=== PATIENT | male | born 1950 | race Caucasian/White ===

== ENCOUNTER → 2017-01-12 | Outpatient (CLI) | payer OTHER, MEDICARE ==
[~2017-01-12] MED LIST: ASCO500T3 PO; ASPCH81X PO; ATOR-24 PO; CALC-393 PO; CARV25TA2 PO; EZET10TA63 PO; GLUC1CAP35 PO; LISI-787 PO; OMEGCAP2 PO
[2017-01-12 11:02] LABS: ALT/SGPT 26 U/L (12-78); AST/SGOT 16 U/L (15-37); BLOOD UREA NITROGEN 19 mg/dl (7-18); CALCIUM 8.6 mg/dl (8.5-10.1); CARBON DIOXIDE 23 mmol/L (21-32); CHLORIDE 108 mmol/L (98-107); CHOLESTEROL 104 mg/dl (0-200); CREATININE 0.98 mg/dl (0.60-1.40); GLUCOSE 101 mg/dl (70-99); POTASSIUM 4.1 mmol/L (3.5-5.1); SODIUM 140 mmol/L (136-145)
[2017-01-12 11:05] LABS: CHOLESTEROL/HDL RATIO 2.3; HDL CHOLESTEROL 46 mg/dl; TRIGLYCERIDES 82 mg/dl (0-150); VERY LOW DENSITY LIPOPROT CALC 16 mg/dl
== END | disposition home or self-care (01) ==
LOC: C.LABBC 08:08
PROVIDERS: ATTEND Family Medicine
DX: R73.01 Impaired fasting glucose (principal); E78.5 Hyperlipidemia, unspecified

== ENCOUNTER → 2017-04-20 | Day surgery (SDC) | payer OTHER, MEDICARE ==
[2017-04-07 13:26] VITALS: BMI 35.0
[~2017-04-20] VITALS: Ht 185.4 cm; Wt 122.7 kg
[~2017-04-20] MED LIST changes: +LIDOCAINE HCL 2% 2 ML VIAL (20MG/ML) ONE; +PROPOFOL IV EMULSION 10 MG/ML 20 ML VIAL IV ONE; +SODIUM CHLORIDE 0.9% 500ML 500 ML IV ONE
[2017-04-20 08:55] VITALS: Ht 185.4 cm; Wt 122.7 kg
[2017-04-20 09:11] VITALS: TEMP 36.6
--- NOTE | 2017-04-20 09:22 | Endo History and Physical ---
History & Physical Date of Service: April 20, 2017. Chief Complaint: SCREENING Referring Physician: GER STEVEN D.O. History of Present Illness 66 yo CM who presents for screening colonoscopy. Past Surgical History Hx Cardiac Surgery: Yes (HEART CATH X 2 (3 STENTS PLACED), CABG-2 VESSELS AND ANUERYSM REPAIR) Hx Internal Defibrillator: No Hx Pacemaker: No Hx Abdominal Surgery: No Hx of Implantable Prosthesis: No Hx Post-Op Nausea and Vomiting: No Hx Cancer Surgery: No Hx Thoracic Surgery: No Hx Orthopedic: No Hx Urinary Tract Surgery: No Family History None Social History Smoking Status: Former Smoker Hx Substance Use: No Hx Alcohol Use: Yes (OCCASIONALLY (3-4 DRINKS WEEKLY)) Allergies Coded Allergies: NO KNOWN DRUG ALLERGIES (Verified Allergy, Unknown, ., 04/20/17) Current Medications Reported Home Medications Medications Dose Route/Sig Max Daily Dose Days Date Category Glucosamine Chondroitin (Ldktlsmzcpm-Ilmnquppqrk-Dci C-) 1 Cap Cap 2 Cap PO QAM 04/07/17 Reported Fish Oil (Stem-3 Fatty Acids) 1 Cap Cap 1 Cap PO QAM 04/07/17 Reported Calcium (Calcium Carbonate) 600 Mg Tab 1 Tab PO QAM 04/07/17 Reported Vitamin C (Ascorbic Acid) 500 Mg Tab 1 Tab PO QAM 04/07/17 Reported Aspirin Chewable (Aspirin) 81 Mg Chew 81 Mg PO QAM 04/07/17 Reported Coreg (Carvedilol) 25 Mg Tab 25 Mg PO BID 04/07/17 Reported Lipitor (Atorvastatin Calcium) 40 Mg Tab 40 Mg PO QPM 04/07/17 Reported Zestoretic 20MG/12.5MG (HCTZ/Lisinopril) Tab 1 Tab PO QAM 04/07/17 Reported Zetia (Ezetimibe) 10 Mg Tab 10 Mg PO QAM 04/07/17 Reported Vital Signs Weight (Kilograms): 122.73 Height (Feet): 6 Height (Inches): 1 Date Time Temp Pulse Resp B/P Pulse Ox O2 Delivery O2 Flow Rate FiO2 04/20/17 09:11 36.6 65 20 140/76 97 Room Air Physical Exam General Appearance: WD/WN, no apparent distress Respiratory/Chest: Auscultation: breath sounds normal Cardiovascular: Heart Auscultation: RRR Abdomen: Bowel Sounds: normal Inspection & Palpation: soft, non-distended, no tenderness, guarding & rebound Assessment and Plan Assessment: 66 yo CM who presents for screening colonoscopy. Plan: Proceed with colonoscopy.
--- NOTE | 2017-04-20 10:22 | GI REPORT ---
Procedure Date: 04/20/2017 9:28 AM Procedure: Colonoscopy Indications: Screening for colorectal malignant neoplasm Medicines: Monitored Anesthesia Care Complications: No immediate complications. Estimated Blood Loss: Estimated blood loss: none. Procedure: Pre-Anesthesia Assessment: - Prior to the procedure, a History and Physical was performed, and patient medications and allergies were reviewed. The patient's tolerance of previous anesthesia was also reviewed. The risks and benefits of the procedure and the sedation options and risks were discussed with the patient. All questions were answered, and informed consent was obtained. Prior Anticoagulants: The patient has taken aspirin, last dose was day of procedure. ASA Grade Assessment: III - A patient with severe systemic disease. After reviewing the risks and benefits, the patient was deemed in satisfactory condition to undergo the procedure. After I obtained informed consent, the scope was passed under direct vision. Throughout the procedure, the patient's blood pressure, pulse, and oxygen saturations were monitored continuously. The scope was introduced through the anus and advanced to the cecum, identified by appendiceal orifice and ileocecal valve. The colonoscopy was performed without difficulty. The patient tolerated the procedure well. The quality of the bowel preparation was good. The terminal ileum, ileocecal valve, appendiceal orifice, and rectum were photographed. Findings: Multiple small-mouthed diverticula were found in the sigmoid colon. Non-bleeding internal hemorrhoids were found during retroflexion. The hemorrhoids were small. Impression: - Diverticulosis in the sigmoid colon. - Non-bleeding internal hemorrhoids. - No specimens collected. Recommendation: - Resume previous diet. - Continue present medications. - Repeat colonoscopy in 10 years for surveillance. - Return to primary care physician as previously scheduled. Maximino Davis, DO 04/20/2017 10:22:39 AM This report has been signed electronically. Note Initiated On: 04/20/2017 9:28 AM I attest to the content of the Intraoperative Record and orders documented therein, exceptions below
--- NOTE | 2017-04-20 10:26 | Discharge Instructions ---
Endoscopy Patient Instructions Date / Procedure(s) Performed April 20, 2017. Colonoscopy Allergy Information Coded Allergies: NO KNOWN DRUG ALLERGIES (Verified Allergy, Unknown, ., 04/20/17) Discharge Date / Findings April 20, 2017. Diverticulosis Internal hemorrhoids Medication Instructions Stopped Medication(s): LISINOPRIL OK to resume all medications today as prescribed Reported Home Medications Medications Dose Route/Sig Max Daily Dose Days Date Category Glucosamine Chondroitin (Pnvhorqthdv-Whazkwmqndz-Szp C-) 1 Cap Cap 2 Cap PO QAM 04/07/17 Reported Fish Oil (Basehor-3 Fatty Acids) 1 Cap Cap 1 Cap PO QAM 04/07/17 Reported Calcium (Calcium Carbonate) 600 Mg Tab 1 Tab PO QAM 04/07/17 Reported Vitamin C (Ascorbic Acid) 500 Mg Tab 1 Tab PO QAM 04/07/17 Reported Aspirin Chewable (Aspirin) 81 Mg Chew 81 Mg PO QAM 04/07/17 Reported Coreg (Carvedilol) 25 Mg Tab 25 Mg PO BID 04/07/17 Reported Lipitor (Atorvastatin Calcium) 40 Mg Tab 40 Mg PO QPM 04/07/17 Reported Zestoretic 20MG/12.5MG (HCTZ/Lisinopril) Tab 1 Tab PO QAM 04/07/17 Reported Zetia (Ezetimibe) 10 Mg Tab 10 Mg PO QAM 04/07/17 Reported Provider Instructions Activity Restrictions - No exercising or heavy lifting for 24 hours. - Do not drink alcohol the day of the procedure. - Do not drive a car or operate machinery until the day after the procedure. - Do not make any important decisions or sign important papers in 24 hours after the procedure. Following Day: - Return to full activity which may include returning to work/school. Diet Start your diet with liquids and light foods (jello, soup, juice, toast). Then eat your usual diet if not nauseated. Treatment For Common After Affects For mild abdominal pain, bloating, or excessive gas: - Rest - Eat lightly - Lie on right side Follow-Up Information Follow-up with GER STEVEN D.O. as scheduled Anesthesia Information What You Should Know You have had a procedure that required some medicine to reduce anxiety and discomfort. This treatment is called moderate sedation. After receiving the treatment, you may be sleepy, but you will be able to breathe on your own. The effects of the treatment may last for several hours. Follow these instructions along with Activity/Diet recommendations noted above: * Do NOT do anything where dizziness or clumsiness would be dangerous. * Rest quietly at home today, then you can be up and about tomorrow. * Have a responsible person stay with you the rest of today. * You may have had an I.V. today. If so, you may take the dressing off later today. Recommendations Call your doctor if: * Trouble breathing * Continuous vomiting for more than 24 hours * Temperature above 101 degrees * Severe abdominal pain or bloating * Pain not relieved by pain medicine ordered * There is increased drainage or redness from any incision * A large amount of rectal bleeding greater than 2-3 tablespoons. (If you had a polyp/s removed or have hemorrhoids, a small amount of blood - from the rectum is to be expected.) * You have any unanswered questions or concerns. IN THE EVENT OF A SERIOUS EMERGENCY, GO TO THE NEAREST EMERGENCY ROOM Your discharge instructions were prepared by provider Maximino Davis. Patient Instructions Signature Page Tomer Finley Patient (or Guardian) Signature/Date: I have read and understand the instructions given to me by my caregivers. Caregiver/RN/Doctor Signature/Date: The above-named patient and/or guardian has received patient instructions on this date. + Original Patient Signature Page (only) stays with chart. Please make copy for patient.
[2017-04-20 10:31] VITALS: BP 135/70; PULSE 56; O2SAT 95
--- NOTE | 2017-04-20 10:49 | Anesthesiology Progress Note ---
Anesthesia Post Op Note Date & Time April 20, 2017 at 10:48 Vital Signs Pain Intensity: 0 Vital Signs Past 12 Hours Date Time Temp Pulse Resp B/P Pulse Ox O2 Delivery O2 Flow Rate FiO2 04/20/17 10:31 56 16 135/70 95 Room Air 04/20/17 10:16 53 16 118/81 96 Room Air 04/20/17 10:01 72 16 118/79 96 Room Air 04/20/17 09:11 36.6 65 20 140/76 97 Room Air Notes Mental Status: alert / awake / arousable, participated in evaluation Pt Amnestic to Procedure: Yes Nausea / Vomiting: adequately controlled Pain: adequately controlled Airway Patency, RR, SpO2: stable & adequate BP & HR: stable & adequate Hydration State: stable & adequate Anesthetic Complications: no major complications apparent
== END | disposition home or self-care (01) ==
LOC: C.GI 08:26
PROVIDERS: ATTEND Internal Medicine
DX: Z12.11 Encounter for screening for malignant neoplasm of colon (principal); K64.8 Other hemorrhoids; K57.30 Diverticulosis of large intestine without perforation or abscess without bleeding; Z95.1 Presence of aortocoronary bypass graft; Z87.891 Personal history of nicotine dependence

== ENCOUNTER → 2017-07-20 | Outpatient (CLI) | payer OTHER, MEDICARE ==
[~2017-07-20] MED LIST changes: -LIDOCAINE HCL 2% 2 ML VIAL (20MG/ML) ONE; -PROPOFOL IV EMULSION 10 MG/ML 20 ML VIAL IV ONE; -SODIUM CHLORIDE 0.9% 500ML 500 ML IV ONE
[2017-07-20 11:13] LABS: BASO % 0.5 %; BASO ABS # 0.04 K/uL (0-0.2); COMPLETE YES; EOS % 2.5 %; HEMATOCRIT 46.5 % (42-52); IG% 0.1 %; LYMPH % 28.2 %; LYMPH ABS # 2.17 K/uL (1.2-3.4); MEAN CELL VOLUME 90.8 fL (80-100); MEAN CORPUSCULAR HEMOGLOBIN 29.3 pg (25-34); MEAN CORPUSCULAR HGB CONC 32.3 g/dl (32-36); MEAN PLATELET VOLUME 10.3 fL (7.4-10.4); MONO % 11.4 %; NEUT % 57.3 %; PLATELET COUNT 194 K/uL (130-400); RED BLOOD COUNT 5.12 M/uL (4.7-6.1); WHITE BLOOD COUNT 7.69 K/uL (4.8-10.8)
[2017-07-20 11:37] LABS: ALT/SGPT 31 U/L (12-78); AST/SGOT 18 U/L (15-37); BLOOD UREA NITROGEN 20 mg/dl (7-18); BUN/CREATININE RATIO 22.7 (10-20); CALCIUM 8.3 mg/dl (8.5-10.1); CARBON DIOXIDE 23 mmol/L (21-32); CHLORIDE 109 mmol/L (98-107); CREATININE 0.87 mg/dl (0.60-1.40); GLUCOSE 113 mg/dl (70-99); POTASSIUM 3.9 mmol/L (3.5-5.1); SODIUM 138 mmol/L (136-145)
[2017-07-20 11:43] LABS: CHOLESTEROL 106 mg/dl (0-200); CHOLESTEROL/HDL RATIO 2.3; HDL CHOLESTEROL 46 mg/dl; TRIGLYCERIDES 71 mg/dl (0-150); VERY LOW DENSITY LIPOPROT CALC 14 mg/dl
[2017-07-20 12:14] LABS: ESTIMATED AVERAGE GLUCOSE 120 mg/dl; HA1C FLAG Normal (Normal)
== END | disposition home or self-care (01) ==
LOC: C.LABBC 08:15
PROVIDERS: ATTEND Family Medicine
DX: I10 Essential (primary) hypertension (principal); I25.810 Atherosclerosis of coronary artery bypass graft(s) without angina pectoris; R73.01 Impaired fasting glucose; Z12.5 Encounter for screening for malignant neoplasm of prostate

== ENCOUNTER → 2018-01-23 | Outpatient (CLI) | payer OTHER, MEDICARE ==
[2018-01-23 10:38] LABS: BASO % 0.4 %; BASO ABS # 0.03 K/uL (0-0.2); EOS % 2.4 %; EOS ABS # 0.18 K/uL (0-0.5); HEMATOCRIT 45.9 % (42-52); HEMOGLOBIN 15.1 g/dL (14.0-18.0); IG# 0.01 K/uL (0.00-0.02); LYMPH % 29.9 %; LYMPH ABS # 2.22 K/uL (1.2-3.4); MEAN CELL VOLUME 90.4 fL (80-100); MEAN CORPUSCULAR HEMOGLOBIN 29.7 pg (25-34); MEAN CORPUSCULAR HGB CONC 32.9 g/dl (32-36); MEAN PLATELET VOLUME 10.3 fL (7.4-10.4); MONO % 11.3 %; MONO ABS # 0.84 K/uL (0.11-0.59); NEUT % 55.9 %; NEUT ABS # 4.14 K/uL (1.4-6.5); PLATELET COUNT 195 K/uL (130-400); RED CELL DISTRIBUTION WIDTH CV 13.7 % (11.5-14.5); RED CELL DISTRIBUTION WIDTH SD 45.7 fL (36.4-46.3); WHITE BLOOD COUNT 7.42 K/uL (4.8-10.8)
[2018-01-23 10:43] LABS: ALT/SGPT 33 U/L (12-78); AST/SGOT 16 U/L (15-37); BLOOD UREA NITROGEN 18 mg/dl (7-18); CALCIUM 8.8 mg/dl (8.5-10.1); CARBON DIOXIDE 26 mmol/L (21-32); CHOLESTEROL 102 mg/dl (0-200); CREATININE 0.93 mg/dl (0.60-1.40); GLUCOSE 102 mg/dl (70-99); POTASSIUM 3.8 mmol/L (3.5-5.1); SODIUM 139 mmol/L (136-145)
[2018-01-23 10:45] LABS: LDL CHOLESTEROL (DIRECT) 55 mg/dl
[2018-01-23 12:13] LABS: HEMOGLOBIN A1C 5.7 % (4.5-5.6)
== END | disposition home or self-care (01) ==
LOC: C.LABBC 07:45
PROVIDERS: ATTEND Family Medicine
DX: I10 Essential (primary) hypertension (principal); I25.810 Atherosclerosis of coronary artery bypass graft(s) without angina pectoris; E78.5 Hyperlipidemia, unspecified; R73.01 Impaired fasting glucose

== ENCOUNTER 2023-06-25 10:20 | Inpatient (IN) ==
[2023-06-25] MEDS ORDERED: SODIUM CHLORIDE 0.9% 1000ML 1,000 ML IV STA (11:11)
--- NOTE | 2023-06-25 11:35 | Emergency Department Note ---
Impression & Plan Painless rectal bleeding ADMIT ED Provider Note HPI: The patient is a 72-year-old gentleman with history of atrial flutter, currently anticoagulated on Eliquis, history of recent cardiac arrest status post prolonged ICU stay in [facility], status post AICD placement, status post multiple clips for lower GI bleed while inpatient at the hospital in [facility] per patient, presents the emergency department with chief complaint of rectal bleeding for the past 2 days. Patient's at the bedside states that he has been taking his Eliquis as prescribed and he did receive his morning dose of Eliquis. Patient is status post PEG tube placement during his admission earlier this month in [place] as well as he was having dysphagia after prolonged intubation. On arrival here to the ED the patient is hemodynamically stable, he is alert, denies any current abdominal pain, denies any chest pain or shortness of breath. Patient states that his rectal bleeding has worsened over the past 2 days. He states initially his bowel movements were dark and then they became somewhat purple/red-colored. He states that they are larger volume now than they had been previously. ROS: - Per HPI Differential Diagnosis: Lower gastrointestinal hemorrhage, peptic ulcer disease, diverticulitis flare, upper gastrointestinal hemorrhage with melena, external hemorrhoids, acute colitis, amongst other potential pathologies. *Outpatient medications and allergy history reviewed. *Pertinent external medical records reviewed. PE: General: Alert HEENT: Normocephalic, trachea midline Eyes: Extraocular eye movement is intact, no scleral erythema Pulmonary: Clear to auscultation bilaterally, no wheezing Cardio: Regular rate and rhythm GI: Abdomen is soft to palpation, G-tube is in place without surrounding erythema or drainage, rectal examination reveals gross blood on digital rectal exam, no evidence of any external hemorrhoids : No suprapubic tenderness MSK: No evidence of trauma or malformation of the extremities, no edema Skin: No evidence of rash Neuro: Alert, no focal deficits Psychiatric: Cooperative science technician: (As interpreted by myself): - An order was placed for continuous cardiac monitoring - Patient was noted to be in paced rhythm with a rate of 60 EKG: (As interpreted by myself): Rate: 60 Rhythm: Atrial paced rhythm Intervals: ND interval 234 ms, QRS and QTc within normal limits ST changes: No ST elevation Time: 1107 Interventions provided in ED: -Kcentra, Protonix bolus and drip Medical Decision Making: Shortly after the patient arrived IV was established and lab work obtained, 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 On arrival here to the ED the patient is hemodynamically stable, he is alert, he is otherwise in no acute distress on my initial assessment. Lab work obtained shows no leukocytosis, there is anemia with a hemoglobin of 9.7, unclear baseline patient's recent dis charge at the [facility]. CMP does not show any critical abnormalities, BUN is slightly elevated at 24, sodium is within normal limits, potassium is within normal limits, there is no evidence of acute kidney injury. Troponin was obtained and is negative. Patient denies any chest pain, EKG shows paced rhythm per my interpretation, low suspicion for ACS. Urinalysis does not show any evidence of infection. Given the patient's recent colonoscopy reported during his ICU stay that required intervention for hemorrhage, I did obtain CT imaging of the abdomen pelvis. CT imaging shows no evidence of any bowel perforation or free air, there is mention of some abnormality and thickened wall of the gallbladder with cholelithiasis. Patient does not have any right upper quadrant tenderness on my exam, he denies any recent nausea or vomiting. He does not have a transaminitis and bilirubin is normal. I have low suspicion for acute cholecystitis. Ultrasound imaging was ordered for follow-up that does not show any clear evidence of cholecystitis. I did discuss the case with on-call general surgery, Dr. Sanchez, at this time low suspicion exist for acute cholecystitis and will plan for admission with general surgery consult on a routine basis. In regards to the patient's lower GI bleed, his hemoglobin is slightly reduced at 9.7, he did take his Eliquis this morning, I discussed the possibility of administering Kcentra to the patient with the on-call anticoagulation spec ialist, Dr. Fontenot, who did order Kcentra for the patient given his gross blood on rectal exam, recent administration of Eliquis, and concern for clinical decompensation should his LGI bleed worsen over the next several hours. I did discuss case with on-call gastroenterology, Dr. Santos, who was in agreement for Kcentra administration of Protonix. Gastroenterology will follow and plan for likely colonoscopy tomorrow morning unless the patient's clinical status changes and colonoscopy could then be arranged on a more emergent basis. I discussed all the above findings with the patient and his at the bedside, at this time they are in agreement for admission. Case was discussed with the on-call admitting hospitalist for [facility], Dr. Bee, and the patient was placed for admission in stable condition for further management. Consultants: -Gastroenterology, Dr. Santos -General surgery, Dr. Sanchez -Hospitalist, Dr. Bee -Anticoagulation specialist, Dr. Fontenot Disposition discussion held by myself with: Patient and at the bedside * CRITICAL CARE TIME: ( 55 ) minutes -Management and stabilization of patient with complex past medical history currently on anticoagulation with acute lower gastrointestinal hemorrhage requiring administration of Kcentra, time spent at the bedside, interpretation of EKG and diagnostic studies, discussion with multiple subspecialty physicians including gastroenterology, general surgery, anticoagulation specialist, and hospitalist service for arrangement of admission. Diagnosis: 1. Lower gastrointestinal hemorrhage, acute, on anticoagulation 2. Anemia, acute 3. Elevated BUN, acute Disposition: Admission Hardeep Back DO Emergency Medicine Past Med/Surg History Medical History (Updated 06/25/23 @ 16:06 by Hardeep Back DO) Anxiety Arthritis BPH with elevated PSA Depression Elevated PSA Heart attack Hypercholesteremia Hypertension Surgical History H/O heart artery stent x 3 History of tonsillectomy No pertinent past surgical history S/P CABG x 2 Family History Father , 72yo Heart disease Rheumatic fever Mother , 74yo Heart disease Hypertension Anxiety Stroke Sister Breast cancer Multiple sclerosis Brother Myocardial infarction Brother Heart disease Hx of CABG Prostate cancer Brother Heart disease H/O heart artery stent Daughter No problems noted. Daughter No problems noted. 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 Verified 12/31/21 14:17 Home Meds Home Medications Medication Instructions Recorded Confirmed ascorbic acid (vitamin C) 500 mg 500 mg PO DAILY 05/07/20 01/04/23 capsule aspirin 81 mg tablet,delayed 81 mg PO DAILY 05/07/20 06/25/23 release (Adult Low Dose Aspirin) calcium carbonate 600 mg calcium 600 mg PO DAILY 05/07/20 01/04/23 (1,500 mg) tablet carvedilol 25 mg tablet 25 mg PO BID 05/07/20 01/04/23 ezetimibe 10 mg tablet 10 mg PO DAILY 05/07/20 06/25/23 lisinopril 20 1 tab PO DAILY 05/07/20 01/04/23 mg-hydrochlorothiazide 12.5 mg tablet multivitamin 1 tab PO DAILY 05/07/20 06/25/23 omega-3 fatty acids 1,000 mg 1,000 mg PO DAILY 05/07/20 01/04/23 capsule vit 2 tab PO DAILY 05/07/20 06/25/23 [id number] 500 mg-50 mg-25 mg-40 mg tablet (Bioflex) cholecalciferol (vitamin D3) 50 50 mcg PO DAILY 12/31/20 01/04/23 mcg (2,000 unit) capsule acetaminophen 500 mg tablet 500 mg PO Q6H PRN Pain 01/04/23 06/25/23 (Tylenol Extra Strength) amiodarone 200 mg tablet 200 mg PO DAILY 06/25/23 06/25/23 apixaban 5 mg tablet (Eliquis) 5 mg PO BID 06/25/23 06/25/23 atorvastatin 80 mg tablet 80 mg PO HS 06/25/23 06/25/23 calcium carbonate 400 mg calcium 400 mg PO DAILY 06/25/23 06/25/23 (1,000 mg) chewable tablet calcium carbonate 500 mg calcium 500 mg PO DAILY 06/25/23 06/25/23 (1,250 mg) chewable tablet docusate sodium 100 mg capsule 100 mg PO BID 06/25/23 06/25/23 (Colace) metoprolol tartrate 50 mg tablet 50 mg PO QID 06/25/23 06/25/23 sennosides 8.6 mg capsule (senna) 8.6 mg PO BID PRN Constipation 06/25/2305/29 sertraline 50 mg tablet 50 mg PO DAILY 06/25/23 06/25/23 sodium bicarbonate 325 mg tablet 325 mg PO DAILY 06/25/23 06/25/23 spironolactone 25 mg tablet 25 mg PO DAILY 06/25/23 06/25/23 torsemide 20 mg tablet 20 mg PO DAILY 06/25/23 06/25/23 Results & Data (ED) Vital Signs Vital Signs - 24 hr 06/25/23 10:49 06/25/23 11:23 06/25/23 11:25 Temperature 36.7 C Temperature Source Skin Pulse Rate 60 60 Pulse Rate [Bilateral] 60 Pulse Rhythm [Bilateral] Regular Respiratory Rate 20 16 18 Respiratory Effort / Characteristics Non-Labored Spontaneous Respiratory Depth Normal Normal Respiratory Pattern Regular Blood Pressure 109/70 Blood Pressure [Left Arm] 112/68 Blood Pressure Mean 83 Blood Pressure Mean [Left Arm] 82 Pulse Oximetry 100 99 98 Oxygen Delivery Method Room Air Room Air Room Air Sepsis Recent Fever Within 48 Hours No Sepsis New/Unexplained Change in Mental Status N/A Sepsis Action Taken by Nursing No Action Required 06/25/23 11:27 06/25/23 15:00 Temperature Temperature Source Pulse Rate 60 Pulse Rate [Bilateral] 60 Pulse Rhythm [Bilateral] Respiratory Rate 22 Respiratory Effort / Characteristics Respiratory Depth Respiratory Pattern Blood Pressure Blood Pressure [Left Arm] 124/68 Blood Pressure Mean Blood Pressure Mean [Left Arm] 86 Pulse Oximetry 100 Oxygen Delivery Method Room Air Sepsis Recent Fever Within 48 Hours Sepsis New/Unexplained Change in Mental Status Sepsis Action Taken by Nursing Laboratory Data 06/25/23 11:30 06/25/23 11:30 Lab Results 06/25/23 06/25/23 06/25/23 Range/Units 11:15 11:15 11:30 WBC 8.78 (4.8-10.8) K/ul RBC 3.07 L (4.70-6.10) M/uL Hgb 9.7 L (14.0-18.0) g/dl Hct 30.4 L (42.0-52.0) % MCV 99.0 (80.0-100.0) fL MCH 31.6 (25.0-34.0) pg MCHC 31.9 L (32.0-36.0) g/dL RDW Std Deviation 64.7 H (36.4-46.3) fL RDW Coeff of [place] 18.1 H (11.5-14.5) % Plt Count 283 (130-400) K/uL MPV 9.2 L (9.4-12.4) fL Immature Gran % (Auto) 1.0 % Neut % (Auto) 69.6 % Lymph % (Auto) 18.1 % [place] % (Auto) 9.3 % Eos % (Auto) 1.3 % Baso % (Auto) 0.7 % Neut # (Auto) 6.11 (1.40-6.50) K/uL Lymph # (Auto) 1.59 (1.2-3.4) K/uL [place] # (Auto) 0.82 H (0.11-0.59) K/uL Eos # (Auto) 0.11 (0-0.50) K/uL Baso # (Auto) 0.06 (0-0.2) K/uL Immature Gran # (Auto) 0.09 (0.01-0.20) K/uL PT (9.0-12.0) Seconds INR (0.9-1.1) Sodium (136-145) mmol/L Potassium (3.5-5.1) mmol/L Chloride (98-107) mmol/L Carbon Dioxide (21-32) mmol/L Anion Gap (3-11) BUN (6-23) mg/dl Creatinine (0.6-1.4) mg/dl Est Cr Clr Drug Dosing ml/min Est GFR ( Amer) ml/min Est GFR (Non-Af Amer) ml/min BUN/Creatinine Ratio (10-20) Glucose (70-99(Fasting)) mg/dl Calcium (8.6-10.3) mg/dl Total Bilirubin (0.2-1.0) mg/dl AST (13-39) U/L ALT (7-52) U/L Alkaline Phosphatase (34-104) U/L Troponin I High Sens (0-20) pg/ml Total Protein (6.0-8.3) gm/dl Albumin (3.4-5.0) gm/dl Globulin (2.5-4.0) gm/dl Albumin/Globulin Ratio (0.9-2) Lipase (11-82) U/L Urine Color Urine Appearance (Clear) Urine pH (4.5-7.5) Ur Specific [place] (1.000-1.030) Urine Protein (Negative) Urine Glucose (UA) (Negative) Urine Ketones (Negative) Urine Blood (Negative) Urine Nitrite (Negative) Urine Bilirubin (Negative) Urine Urobilinogen (Negative) Ur Leukocyte Esterase (Negative) Blood Type Cancelled O Positive Antibody Screen Cancelled NEGATIVE 06/25/23 06/25/23 06/25/23 Range/Units 11:30 11:30 13:45 WBC (4.8-10.8) K/ul RBC (4.70-6.10) M/uL Hgb (14.0-18.0) g/dl Hct (42.0-52.0) % MCV (80.0-100.0) fL MCH (25.0-34.0) pg MCHC (32.0-36.0) g/dL RDW Std Deviation (36.4-46.3) fL RDW Coeff of [place] (11.5-14.5) % Plt Count (130-400) K/uL MPV (9.4-12.4) fL Immature Gran % (Auto) % Neut % (Auto) % Lymph % (Auto) % [place] % (Auto) % Eos % (Auto) % Baso % (Auto) % Neut # (Auto) (1.40-6.50) K/uL Lymph # (Auto) (1.2-3.4) K/uL [place] # (Auto) (0.11-0.59) K/uL Eos # (Auto) (0-0.50) K/uL Baso # (Auto) (0-0.2) K/uL Immature Gran # (Auto) (0.01-0.20) K/uL PT 12.3 H (9.0-12.0) Seconds INR 1.1 (0.9-1.1) Sodium 138 (136-145) mmol/L Potassium 4.2 (3.5-5.1) mmol/L Chloride 102 (98-107) mmol/L Carbon Dioxide 27 (21-32) mmol/L Anion Gap 9 (3-11) BUN 24 H (6-23) mg/dl Creatinine 1.10 (0.6-1.4) mg/dl Est Cr Clr Drug Dosing 77.6 ml/min Est GFR ( Amer) 77.3 ml/min Est GFR (Non-Af Amer) 66.7 ml/min BUN/Creatinine Ratio 21.8 H (10-20) Glucose 115 H (70-99(Fasting)) mg/dl Calcium 9.5 (8.6-10.3) mg/dl Total Bilirubin 0.6 (0.2-1.0) mg/dl AST 22 (13-39) U/L ALT 29 (7-52) U/L Alkaline Phosphatase 111 H (34-104) U/L Troponin I High Sens 15.5 (0-20) pg/ml Total Protein 7.5 (6.0-8.3) gm/dl Albumin 3.7 (3.4-5.0) gm/dl Globulin 3.8 (2.5-4.0) gm/dl Albumin/Globulin Ratio 1.0 (0.9-2) Lipase 32 (11-82) U/L Urine Color Yellow Urine Appearance Clear (Clear) Urine pH 7.5 (4.5-7.5) Ur Specific [place] 1.016 (1.000-1.030) Urine Protein Negative (Negative) Urine Glucose (UA) Negative (Negative) Urine Ketones Negative (Negative) Urine Blood Negative (Negative) Urine Nitrite Negative (Negative) Urine Bilirubin Negative (Negative) Urine Urobilinogen Negative (Negative) Ur Leukocyte Esterase Negative (Negative) Blood Type Antibody Screen Administered Medications Pantoprazole Sodium 40 mg/ (Dextrose) 100 mls @ 20 mls/hr IV Q5H DESTINY Stop: 07/25/23 12:29 Last Admin: 06/25/23 13:08 Dose: 8 mg/hr, 20 mls/hr Documented By: RUSSELL Discontinued Medications Sodium Chloride (Nss 1000ml) 1,000 mls @ 999 mls/hr IV .Q1H1M STA Stop: 06/25/23 12:11 Last Infusion: 06/25/23 15:15 Dose: 0 mls/hr Documented By: Admin: 06/25/23 11:38 Dose: 999 mls/hr Documented By: RUSSELL Pantoprazole Sodium (Protonix Bolus/Drip) 0 mls @ 1 mls/hr IV ONE STA Stop: 06/25/23 12:13 Last Admin: 06/25/23 14:46 Dose: Not Given Documented By: RUSSELL Pantoprazole Sodium 80 mg/ (Dextrose) 120 mls @ 400 mls/hr IV NOW ONE Stop: 06/25/23 12:29 Last Infusion: 06/25/23 15:15 Dose: 0 mls/hr Documented By: Admin: 06/25/23 13:07 Dose: 400 mls/hr Documented By: RUSSELL Prothrombin Complex Concent ( (Human) 2,000 units/ Syringe) 80 mls @ 10 mls/min IV NOW ONE; Protocol Stop: 06/25/23 12:42 Last Admin: 06/25/23 13:08 Dose: 10 mls/min Documented By: RUSSELL Ioversol (Optiray 320 100ml) 92 ml IV ONCE ONE Stop: 06/25/23 12:27 Last Admin: 06/25/23 12:26 Dose: 92 ml Documented By: EDK Imaging Data Radiologist's Impression: Abdomen/Pelvis CT 06/25/23 11:33 CT SCAN OF THE ABDOMEN AND PELVIS WITH IV CONTRAST CLINICAL HISTORY: Hematochezia. COMPARISON STUDY: Abdominal CT dated 05/06/2020. TECHNIQUE: Following the IV administration of 92 cc of Optiray 320, CT scan of the abdomen and pelvis is performed from the lung bases to the proximal femora. Images are reviewed in the axial, sagittal, and coronal planes. IV contrast was administered without complication. A dose lowering technique was utilized adhering to the principles of ALARA. The examination is degraded by streak artifact from the left arm which could not be elevated above the abdomen. CT DOSE: 1982.02 mGy.cm FINDINGS: Lung bases: The patient is status post midline sternotomy. The heart is enlarged and without pericardial effusion. Pacemaker leads are in place. Calcification of the apical myocardium suggests previous ischemia. There is likely intraventricular thrombus at the apex seen on axial image #55. There is elevation of the right hemidiaphragm with bibasilar scarring/atelectasis. No airspace consolidation or pleural effusion is identified. A 5 mm pulmonary nodule is seen at the left lung base on image #68. Liver: The contrast-enhanced liver is normal in size, contour, and attenuation. There is no intrahepatic biliary ductal dilatation. The hepatic veins and portal veins are patent. Gallbladder: There are layering calcified gallstones. The gallbladder is distended and there is pericholecystic infiltration. Spleen: Normal in size and attenuation. Pancreas: Unremarkable. Adrenal glands: Unremarkable. Kidneys: The contrast enhanced kidneys are normal in size and without hydronephrosis. The kidneys enhance symmetrically. A 2.4 cm cyst is seen in the left lower pole. Additional subcentimeter cortical hypodensities also likely represent cysts but are too small for definitive characterization. Abdominal vasculature: There is advanced atherosclerotic calcification and mild ectasia of the abdominal aorta. Bowel: A percutaneous gastrostomy tube is in place. The lumbar may be located outside of the stomach within the abdominal wall. The abdominal wall soft tissues are thickened at this site. There is moderate colonic diverticulosis without CT evidence of acute diverticulitis. No bowel obstruction is seen. Moderate fecal retention is noted throughout the colon. The appendix is well- visualized and normal. Peritoneum: There is no intraperitoneal free air or abdominal ascites. There is a fat-containing umbilical hernia. Lymphadenopathy: None. Pelvic viscera: The prostate gland is diminutive and heterogeneous, and contains metallic implants. The bladder wall is thickened trabeculated indicating chronic outlet obstruction. There is a 4.0 cm simple ovoid fluid collection in the right groin and a similar-appearing 3.3 cm fluid collection in the left groin. There is mild strandy infiltration, and these likely represent seromas. There are adjacent surgical clips. Skeletal structures: The skeletal structures are osteopenic. There are bilateral pars defects at L5 with 8 mm of anterolisthesis of L5-S1. There is moderate lumbosacral spondylosis. No lytic or blastic lesions are seen. There are subacute-appearing bilateral anterior rib fractures. IMPRESSION: 1. Cholelithiasis within a distended gallbladder. There is mild pericholecystic infiltration and findings are suspicious for acute cholecystitis. Clinical and laboratory correlation will be required. If warranted a right upper quadrant ultrasound could be considered for further assessment. 2. Colonic diverticulosis without CT evidence of acute diverticulitis. 3. Cardiomegaly and cardiac pacemaker. Findings are highly suspicious for intraventricular thrombus at the apex. Cardiology evaluation is advised. 4. A percutaneous gastrostomy tube is in place. The bumper appears to be located outside of the gastric lumen within the abdominal wall. 5. There is a 5 mm left lower lobe pulmonary nodule. This is pathologically indeterminate. A dedicated chest CT is recommended in 3 months time for reassessment and full evaluation of the thorax. 6. Simple appearing fluid collections are present in the groin bilaterally with adjacent surgical clips and mild surrounding infiltration. These likely represent seromas. Correlate clinically. 7. There are subacute appearing bilateral anterior rib fractures. 8. Additional findings as above. ACT 112: Positive. There are findings on this exam that require communication between the performing entity and the patient following Patient Test Result Information Act ([place] Act 112) guidelines. Electronically signed by: Prakash Foster M.D. 06/25/2023 1:08 PM Gallbladder Ultrasound 06/25/23 13:24 ULTRASOUND RIGHT UPPER QUADRANT ABDOMEN CLINICAL HISTORY: Cholelithiasis. Abnormal CT scan. COMPARISON STUDY: Abdominal CT dated 06/25/2023. TECHNIQUE: Real-time, grayscale, and color flow sonography of the right upper quadrant of the abdomen was performed. Images are reviewed in the transverse and longitudinal planes. FINDINGS: Liver: The liver is normal in size and echotexture. There is no intrahepatic biliary ductal dilatation. The main portal vein is patent. Gallbladder: The gallbladder is distended and contains gallstones and biliary sludge. The gallbladder wall is top normal in thickness measuring up to 3 mm. No pericholecystic fluid is seen. A sonographic Gunderson's sign is reportedly absent. The common bile duct measures up to 0.4 cm in diameter. Pancreas: Visualized portions of the pancreatic head are normal in appearance. The majority of the pancreas was not well visualized due to overlying bowel gas. Right kidney: Survey images of the right kidney demonstrate normal size and echotexture. There is no hydronephrosis. Ascites: None. IMPRESSION: 1. Distended gallbladder which contains stones and sludge. There is no definitive sonographic evidence of acute cholecystitis. The CT findings remain concerning, and if clinically warranted a nuclear hepatobiliary scan should be obtained to assess for cystic duct obstruction. 2. There is no intra or extrahepatic biliary ductal dilatation. ACT 112: Negative or not required by law. Electronically signed by: Prakash Foster M.D. 06/25/2023 2:53 PM Discharge Plan Visit Data Chief Complaint: Rectal Bleed Stated Complaint: RECTAL BLEED ED Provider: Hardeep Bcak Discharge Problem: Painless rectal bleeding Forms Stand Alone Forms: [facility] Prescriptions Prescriptions: No Action aspirin [Adult Low Dose Aspirin] 81 mg tablet,delayed release (DR/EC) 81 mg PO DAILY Bioflex 301-53-12-40 mg tablet 2 tab PO DAILY lisinopril-hydrochlorothiazide 20-12.5 mg tablet 1 tab PO DAILY multivitamin Tablet 1 tab PO DAILY omega-3 fatty acids 1,000 mg capsule 1,000 mg PO DAILY cholecalciferol (vitamin D3) 50 mcg (2,000 unit) capsule 50 mcg PO DAILY acetaminophen [Tylenol Extra Strength] 500 mg tablet 500 mg PO Q6H PRN (Reason: Pain) ascorbic acid (vitamin C) 500 mg capsule 500 mg PO DAILY calcium carbonate 600 mg calcium (1,500 mg) tablet 600 mg PO DAILY carvedilol 25 mg tablet 25 mg PO BID ezetimibe 10 mg tablet 10 mg PO DAILY atorvastatin 80 mg tablet 80 mg PO HS torsemide 20 mg tablet 20 mg PO DAILY amiodarone 200 mg tablet 200 mg PO DAILY spironolactone 25 mg tablet 25 mg PO DAILY metoprolol tartrate 50 mg tablet 50 mg PO QID sertraline 50 mg tablet 50 mg PO DAILY Eliquis 5 mg tablet 5 mg PO BID sodium bicarbonate 325 mg Tablet 325 mg PO DAILY calcium carbonate [Maalox] 400 mg calcium (1,000 mg) Tablet,Chewable 400 mg PO DAILY docusate sodium [Colace] 100 mg Capsule 100 mg PO BID calcium carbonate [Tums 500] 500 mg calcium (1,250 mg) Tablet,Chewable 500 mg PO DAILY senna 8.6 mg Capsule 8.6 mg PO BID PRN (Reason: Constipation) Referrals Referrals: Oli Puente MD [Primary Care Provider] -
[2023-06-25 11:47] LABS: Basophils # (auto) 0.06 K/uL (0-0.2); Basophils % (auto) 0.7 %; Eosinophils # (auto) 0.11 K/uL (0-0.50); Eosinophils % (auto) 1.3 %; Hematocrit (blood only) 30.4 % (42.0-52.0); Hemoglobin 9.7 g/dl (14.0-18.0); Immature Granulocytes # (auto) 0.09 K/uL (0.01-0.20); Lymphocytes # (auto) 1.59 K/uL (1.2-3.4); Lymphocytes % (auto) 18.1 %; Mean Corpuscular Hemoglobin 31.6 pg (25.0-34.0); Mean Corpuscular Hgb Conc 31.9 g/dL (32.0-36.0); Mean Platelet Volume 9.2 fL (9.4-12.4); Monocytes # (auto) 0.82 K/uL (0.11-0.59); Monocytes % (auto) 9.3 %; Neutrophils # (auto) 6.11 K/uL (1.40-6.50); Neutrophils % (auto) 69.6 %; Platelet Count 283 K/uL (130-400); RDW Coefficient of Variation 18.1 % (11.5-14.5); RDW Standard Deviation 64.7 fL (36.4-46.3); Red Blood Count 3.07 M/uL (4.70-6.10); White Blood Count 8.78 K/ul (4.8-10.8)
[2023-06-25 12:04] LABS: Albumin Level 3.7 gm/dl (3.4-5.0); BUN Creatinine Ratio 21.8 (10-20); Bilirubin,Total 0.6 mg/dl (0.2-1.0); Calcium 9.5 mg/dl (8.6-10.3); Creatinine Clr Calc Pharmacy 77.6 ml/min; Est GFR (African American) 77.3 ml/min; Est GFR (Non-African American) 66.7 ml/min; Globulin 3.8 gm/dl (2.5-4.0); Potassium 4.2 mmol/L (3.5-5.1); Total Protein 7.5 gm/dl (6.0-8.3)
[2023-06-25 12:10] LABS: Troponin I High Sensitivity 15.5 pg/ml (0-20)
[2023-06-25] MEDS ORDERED: PANTOPRAZOLE BOLUS/DRIP 1 EACH IV STA (12:12)
[2023-06-25] MEDS ORDERED: PANTOprazole 80 MG in DEXTROSE 5% 100 ML IV ONE (12:12)
[2023-06-25 12:14] LABS: INR 1.1 (0.9-1.1); Prothrombin Time 12.3 Seconds (9.0-12.0)
[2023-06-25] MEDS ORDERED: OPTIRAY 320 100ml IV ONE (12:26)
[2023-06-25] MEDS ORDERED: KCENTRA (500unit vial) 2000 units IVP IV ONE (12:35)
[2023-06-25] MEDS: PANTOprazole 40 MG in DEXTROSE 5% 100 ML IV SCH ×2 (13:08→18:30)
--- NOTE | 2023-06-25 13:10 | CT Scan Report ---
CT SCAN OF THE ABDOMEN AND PELVIS WITH IV CONTRAST CLINICAL HISTORY: Hematochezia. COMPARISON STUDY: Abdominal CT dated 05/06/2020. TECHNIQUE: Following the IV administration of 92 cc of Optiray 320, CT scan of the abdomen and pelvi s is performed from the lung bases to the proximal femora. Images are reviewed in the axial, sagittal , and coronal planes. IV contrast was administered without complication. A dose lowering technique wa s utilized adhering to the principles of ALARA. The examination is degraded by streak artifact from t he left arm which could not be elevated above the abdomen. CT DOSE: 1982.02 mGy.cm FINDINGS: Lung bases: The patient is status post midline sternotomy. The heart is enlarged and without pericard ial effusion. Pacemaker leads are in place. Calcification of the apical myocardium suggests previous ischemia. There is likely intraventricular thrombus at the apex seen on axial image #55. There is balbina vation of the right hemidiaphragm with bibasilar scarring/atelectasis. No airspace consolidation or p leural effusion is identified. A 5 mm pulmonary nodule is seen at the left lung base on image #68. Liver: The contrast-enhanced liver is normal in size, contour, and attenuation. There is no intrahepa tic biliary ductal dilatation. The hepatic veins and portal veins are patent. Gallbladder: There are layering calcified gallstones. The gallbladder is distended and there is peric holecystic infiltration. Spleen: Normal in size and attenuation. Pancreas: Unremarkable. Adrenal glands: Unremarkable. Kidneys: The contrast enhanced kidneys are normal in size and without hydronephrosis. The kidneys enh ance symmetrically. A 2.4 cm cyst is seen in the left lower pole. Additional subcentimeter cortical h ypodensities also likely represent cysts but are too small for definitive characterization. Abdominal vasculature: There is advanced atherosclerotic calcification and mild ectasia of the abdomi nal aorta. Bowel: A percutaneous gastrostomy tube is in place. The lumbar may be located outside of the stomach within the abdominal wall. The abdominal wall soft tissues are thickened at this site. There is moder ate colonic diverticulosis without CT evidence of acute diverticulitis. No bowel obstruction is seen. Moderate fecal retention is noted throughout the colon. The appendix is well-visualized and normal. Peritoneum: There is no intraperitoneal free air or abdominal ascites. There is a fat-containing umbi lical hernia. Lymphadenopathy: None. Pelvic viscera: The prostate gland is diminutive and heterogeneous, and contains metallic implants. T he bladder wall is thickened trabeculated indicating chronic outlet obstruction. There is a 4.0 cm si mple ovoid fluid collection in the right groin and a similar-appearing 3.3 cm fluid collection in the left groin. There is mild strandy infiltration, and these likely represent seromas. There are adjace nt surgical clips. Skeletal structures: The skeletal structures are osteopenic. There are bilateral pars defects at L5 w ith 8 mm of anterolisthesis of L5-S1. There is moderate lumbosacral spondylosis. No lytic or blastic lesions are seen. There are subacute-appearing bilateral anterior rib fractures. IMPRESSION: 1. Cholelithiasis within a distended gallbladder. There is mild pericholecystic infiltration and find ings are suspicious for acute cholecystitis. Clinical and laboratory correlation will be required. If warranted a right upper quadrant ultrasound could be considered for further assessment. 2. Colonic diverticulosis without CT evidence of acute diverticulitis. 3. Cardiomegaly and cardiac pacemaker. Findings are highly suspicious for intraventricular thrombus a t the apex. Cardiology evaluation is advised. 4. A percutaneous gastrostomy tube is in place. The bumper appears to be located outside of the gastr ic lumen within the abdominal wall. 5. There is a 5 mm left lower lobe pulmonary nodule. This is pathologically indeterminate. A dedicate d chest CT is recommended in 3 months time for reassessment and full evaluation of the thorax. 6. Simple appearing fluid collections are present in the groin bilaterally with adjacent surgical cli ps and mild surrounding infiltration. These likely represent seromas. Correlate clinically. 7. There are subacute appearing bilateral anterior rib fractures. 8. Additional findings as above. ACT 112: Positive. There are findings on this exam that require communication between the performing entity and the patient following Patient Test Result Information Act ([place] Act 112) guidelines. Electronically signed by: Prakash Foster M.D. 06/25/2023 1:08 PM
[2023-06-25 14:47] LABS: Appearance Urine Clear (Clear); Bilirubin Urine Negative (Negative); Blood Urine Negative (Negative); Color Urine Yellow; Glucose Urine UA Negative (Negative); Ketones Urine Negative (Negative); Leukocyte Esterase Urine Negative (Negative); Nitrite Urine Negative (Negative); Protein Urine Negative (Negative); Specific Gravity Urine 1.016 (1.000-1.030); Urobilinogen Urine Negative (Negative); pH Urine 7.5 (4.5-7.5)
--- NOTE | 2023-06-25 14:55 | Ultrasound Report ---
ULTRASOUND RIGHT UPPER QUADRANT ABDOMEN CLINICAL HISTORY: Cholelithiasis. Abnormal CT scan. COMPARISON STUDY: Abdominal CT dated 06/25/2023. TECHNIQUE: Real-time, grayscale, and color flow sonography of the right upper quadrant of the abdomen was performed. Images are reviewed in the transverse and longitudinal planes. FINDINGS: Liver: The liver is normal in size and echotexture. There is no intrahepatic biliary ductal dilatatio n. The main portal vein is patent. Gallbladder: The gallbladder is distended and contains gallstones and biliary sludge. The gallbladder wall is top normal in thickness measuring up to 3 mm. No pericholecystic fluid is seen. A sonographi c Gunderson's sign is reportedly absent. The common bile duct measures up to 0.4 cm in diameter. Pancreas: Visualized portions of the pancreatic head are normal in appearance. The majority of the pa ncreas was not well visualized due to overlying bowel gas. Right kidney: Survey images of the right kidney demonstrate normal size and echotexture. There is no hydronephrosis. Ascites: None. IMPRESSION: 1. Distended gallbladder which contains stones and sludge. There is no definitive sonographic evidenc e of acute cholecystitis. The CT findings remain concerning, and if clinically warranted a nuclear he patobiliary scan should be obtained to assess for cystic duct obstruction. 2. There is no intra or extrahepatic biliary ductal dilatation. ACT 112: Negative or not required by law. Electronically signed by: Prakash Foster M.D. 06/25/2023 2:53 PM
--- NOTE | 2023-06-25 15:21 | History & Physical Report ---
Date of Service June 25, 2023 Assessment & Plan (1) Painless rectal bleeding: (2) Acute blood loss anemia: (3) Prostate cancer: (4) Gallbladder anomaly: (5) Pulmonary nodule: (6) 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 BRBPR/Acute GI Bleed/Acute blood loss anemia States that he has had known bleed however worsening over the last 4-5 days notes pt had recent sigmoidoscopy in [place], [place] where he had "3 clips" put in to help with bleeding. Pt on Eliquis for Hx of atrial flutter, was recently switched from Coumadin to Eliquis Hgb 9.7 on admission, noted to be 9.2 on 06/13 in [facility]. hemodynamically stable currently CT abd/pelvis notes seromas in the groin bilaterally in the ED. Discharge Summary from [facility] notes CTA abd/pelvis in the past(March-April) that showed a liver laceration with active bleed from the R superior epigastric artery. On ppi drip, GI consult placed- appreciate recs, pt NPO Trend H/H q6h, transfuse as needed Gallbladder changes Noted on CT abd/pelvis done today but pt asymptomatic. CT abd/pelvis "Cholelithiasis within a distended gallbladder. There is mild pericholecystic infiltration and findings are suspicious for acute cholecystitis. Clinical and laboratory correlation will be required. If warranted a right upper quadrant ultrasound could be considered for further assessment." Gallbladder US: "1. Distended gallbladder which contains stones and sludge. There is no definitive sonographic evidence of acute cholecystitis. The CT findings remain concerning, and if clinically warranted a nuclear hepatobiliary scan should be obtained to assess for cystic duct obstruction. 2. There is no intra or extrahepatic biliary ductal dilatation." General Surgery consulted by the ED- appreciate recs GI consult as above for scan. Intraventricular thrombus at [place] CT abd/pelvis:"There is likely intraventricular thrombus at the apex seen on axial image #55.""Cardiomegaly and cardiac pacemaker. Findings are highly suspicious for intraventricular thrombus at the apex. 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 Holding Eliquis Cardiology consult- appreciate recs Pulmonary Nodules CT scan notes pulmonary nodules, recommended CT scan repeat in 3 months. Dysphagia Has PEG tube Hx of Cardiac Arrest s/p dual chamber Medtronic ICD placement/Atrial Flutter Pt's records and hospital discharge summary reviewed in [facility] from [facility]. 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 04/13/23-Pt with collapse and cardiac arrest in [facility] while visiting family. Course included 8 mins of CPR and shock, placement of Impella CP, ECMO and extubation on 04/27. 05/01- had nose bleed that required packing by ENT and needed a blood transfusion. Had a CTA abd/pelvis that also showed a liver laceration with active bleed from the R superior epigastric artery, +blood cultures (staph capitis). 05/20- PEG tube placed for dysphagia related to intubation, pt taking only ice chips by mouth 05/24-Dual medtronic ICD placed 05/25- Discharged to acute rehab (during rehab had cardioversion for atrial flutter) 06/08- Discharged from rehab to home. 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 Coumadin was switched to Eliquis and Coreg switched to metoprolol during his hospitalizations. Lisinopril-hctz held, placed on spironolactone, torsemide and amiodarone. Holding lisinopril- hctz, continue spironolactone, torsemide and metoprolol with cardiology input on BP in setting of GI bleed. Continue amiodarone, hold aspirin and eliquis. cardiology consult Prostate Cancer Hx Diagnosed in 2019 Follows with urology and radiation oncology locally Diet: NPO for procedure, otherwise has PEG tube for feedings CODE STATUS: DNR/DNI DVT prophylaxis: Holding Eliquis due to acute GI bleed Dispo: PCU/tele History of Present Illness Chief Complaint: Rectal bleed Primary Care Provider: Oli Puente MD Pt is 72yoM with PMHx significant for prostate cancer, atrial flutter currently on Eliquis and cardiac arrest (March 2023) s/p dual chamber Medtronic ICD placement and PEG placement for dysphagia related to intubation presenting with a GI bleed. present at bedside and also provides some of the history. States that he has been having occasional bleeding per rectum for the past few months, but has been more copious with bowel movements over the last 4-5 days. States the toilet bowl is filled with blood and he has noted stains ranging from brown to bright red on the sheets when he gets up in the morning. Currently on Eliquis, notes he was previously on coumadin for a Hx of atrial flutter. Notes a Hx of an VA many years ago and placement of a "patch" on the apex of his heart. also tells of his hospitalization for 5 weeks in the ICU after going into cardiac arrest in [facility] while visiting family. States that he had ECMO done there and was placed on a ventilator, got dysphagia from that after extubation and had to have a PEG tube placed. Follows with cardiology and states that his patient financial coordinator is Dr. Romo. Vitals stable in the ED with hgb of 9.7 on admission. Allergies Allergy/AdvReac Type Severity Reaction Status Date / Time No Known Drug Allergies Allergy Unknown . Verified 12/31/21 14:17 Home Medications Medication Instructions Recorded Confirmed Type ascorbic acid (vitamin C) 500 mg 500 mg PO DAILY 05/07/20 01/04/23 History capsule aspirin 81 mg tablet,delayed 81 mg PO DAILY 05/07/20 06/25/23 History release (Adult Low Dose Aspirin) calcium carbonate 600 mg calcium 600 mg PO DAILY 05/07/20 01/04/23 History (1,500 mg) tablet carvedilol 25 mg tablet 25 mg PO BID 05/07/20 01/04/23 History ezetimibe 10 mg tablet 10 mg PO DAILY 05/07/20 06/25/23 History lisinopril 20 1 tab PO DAILY 05/07/20 01/04/23 History mg-hydrochlorothiazide 12.5 mg tablet multivitamin 1 tab PO DAILY 05/07/20 06/25/23 History omega-3 fatty acids 1,000 mg 1,000 mg PO DAILY 05/07/20 01/04/23 History capsule vit 2 tab PO DAILY 05/07/20 06/25/23 History [id number] 500 mg-50 mg-25 mg-40 mg tablet (Bioflex) cholecalciferol (vitamin D3) 50 50 mcg PO DAILY 12/31/20 01/04/23 History mcg (2,000 unit) capsule acetaminophen 500 mg tablet 500 mg PO Q6H PRN Pain 01/04/23 06/25/23 History (Tylenol Extra Strength) amiodarone 200 mg tablet 200 mg PO DAILY 06/25/23 06/25/23 History apixaban 5 mg tablet (Eliquis) 5 mg PO BID 06/25/23 06/25/23 History atorvastatin 80 mg tablet 80 mg PO HS 06/25/23 06/25/23 History calcium carbonate 400 mg calcium 400 mg PO DAILY 06/25/23 06/25/23 History (1,000 mg) chewable tablet calcium carbonate 500 mg calcium 500 mg PO DAILY 06/25/23 06/25/23 History (1,250 mg) chewable tablet docusate sodium 100 mg capsule 100 mg PO BID 06/25/23 06/25/23 History (Colace) metoprolol tartrate 50 mg tablet 50 mg PO QID 06/25/23 06/25/23 History sennosides 8.6 mg capsule (senna) 8.6 mg PO BID PRN Constipation 06/25/23 History sertraline 50 mg tablet 50 mg PO DAILY 06/25/23 06/25/23 History sodium bicarbonate 325 mg tablet 325 mg PO DAILY 06/25/23 06/25/23 History spironolactone 25 mg tablet 25 mg PO DAILY 06/25/23 06/25/23 History torsemide 20 mg tablet 20 mg PO DAILY 06/25/23 06/25/23 History Past Med/Surg History Medical History (Updated 06/25/23 @ 16:59 by Samina Ruvalcaba MD) Anxiety Arthritis BPH with elevated PSA Depression Elevated PSA Heart attack Hypercholesteremia Hypertension Surgical History H/O heart artery stent x 3 History of tonsillectomy No pertinent past surgical history S/P CABG x 2 Family History Father , 72yo Heart disease Rheumatic fever Mother , 74yo Heart disease Hypertension Anxiety Stroke Sister Breast cancer Multiple sclerosis Brother Myocardial infarction Brother Heart disease Hx of CABG Prostate cancer Brother Heart disease H/O heart artery stent Daughter No problems noted. Daughter No problems noted. Social History Smoking Status: Former smoker Cigarettes Per Day: 1/2 PPD x 20 years; Second Hand Exposure: No; Do You Dip or Chew Tobacco: No; Hx Alcohol Use: Yes (Social drinking;) Alcohol type: beer and wine Hx Substance Use: No Preferred Language: Azeri Communication Ability: Effective Visual Impairment: No Limitations Hearing Ability: Normal Architectural Superintendent Required: No Beliefs That Will Affect Care: None marital status: Current Living Situation: Spouse current occupational status: retired current occupation: [employer] Feels Safe at Home: Yes Diet: other caffeine: Yes (2 cups/day) Review of Systems Review of Systems: All systems reviewed & are unremarkable except as noted in HPI & below Physical Exam Physical Exam: General: Alert, oriented. No acute distress Skin: No noted rashes or bruises Psych: Appropriate mood and affect Neuro: No gross deficits observed while laying in bed HEENT: NC/AT CV: RRR, Blowing murmur appreciated Resp: Breath sounds clear bilaterally, no increased effort of breathing. Abdomen: Soft, nontender, PEG tube in place Extremities: edema in lower extremities bilaterally. Results & Data Results & Data Vital Signs (Past 12 Hours) Vital Signs Temp Pulse Pulse Resp BP BP Pulse Ox 06/25/23 11:27 60 06/25/23 11:25 60 18 98 06/25/23 11:23 60 16 112/68 99 06/25/23 10:49 36.7 C 60 20 109/70 100 O2 Del Method 06/25/23 11:27 06/25/23 11:25 Room Air 06/25/23 11:23 Room Air 06/25/23 10:49 Room Air Diagnostic Findings Abdomen/Pelvis CT 06/25/23 11:33 CT SCAN OF THE ABDOMEN AND PELVIS WITH IV CONTRAST CLINICAL HISTORY: Hematochezia. COMPARISON STUDY: Abdominal CT dated 05/06/2020. TECHNIQUE: Following the IV administration of 92 cc of Optiray 320, CT scan of the abdomen and pelvis is performed from the lung bases to the proximal femora. Images are reviewed in the axial, sagittal, and coronal planes. IV contrast was administered without complication. A dose lowering technique was utilized adhering to the principles of ALARA. The examination is degraded by streak artifact from the left arm which could not be elevated above the abdomen. CT DOSE: 1982.02 mGy.cm FINDINGS: Lung bases: The patient is status post midline sternotomy. The heart is enlarged and without pericardial effusion. Pacemaker leads are in place. Calcification of the apical myocardium suggests previous ischemia. There is likely intraventricular thrombus at the apex seen on axial image #55. There is elevation of the right hemidiaphragm with bibasilar scarring/atelectasis. No airspace consolidation or pleural effusion is identified. A 5 mm pulmonary nodule is seen at the left lung base on image #68. Liver: The contrast-enhanced liver is normal in size, contour, and attenuation. There is no intrahepatic biliary ductal dilatation. The hepatic veins and portal veins are patent. Gallbladder: There are layering calcified gallstones. The gallbladder is distended and there is pericholecystic infiltration. Spleen: Normal in size and attenuation. Pancreas: Unremarkable. Adrenal glands: Unremarkable. Kidneys: The contrast enhanced kidneys are normal in size and without hydronephrosis. The kidneys enhance symmetrically. A 2.4 cm cyst is seen in the left lower pole. Additional subcentimeter cortical hypodensities also likely represent cysts but are too small for definitive characterization. Abdominal vasculature: There is advanced atherosclerotic calcification and mild ectasia of the abdominal aorta. Bowel: A percutaneous gastrostomy tube is in place. The lumbar may be located outside of the stomach within the abdominal wall. The abdominal wall soft tissues are thickened at this site. There is moderate colonic diverticulosis without CT evidence of acute diverticulitis. No bowel obstruction is seen. Moderate fecal retention is noted throughout the colon. The appendix is well- visualized and normal. Peritoneum: There is no intraperitoneal free air or abdominal ascites. There is a fat-containing umbilical hernia. Lymphadenopathy: None. Pelvic viscera: The prostate gland is diminutive and heterogeneous, and contains metallic implants. The bladder wall is thickened trabeculated indicating chronic outlet obstruction. There is a 4.0 cm simple ovoid fluid collection in the right groin and a similar-appearing 3.3 cm fluid collection in the left groin. There is mild strandy infiltration, and these likely represent seromas. There are adjacent surgical clips. Skeletal structures: The skeletal structures are osteopenic. There are bilateral pars defects at L5 with 8 mm of anterolisthesis of L5-S1. There is moderate lumbosacral spondylosis. No lytic or blastic lesions are seen. There are subacute-appearing bilateral anterior rib fractures. IMPRESSION: 1. Cholelithiasis within a distended gallbladder. There is mild pericholecystic infiltration and findings are suspicious for acute cholecystitis. Clinical and laboratory correlation will be required. If warranted a right upper quadrant ultrasound could be considered for further assessment. 2. Colonic diverticulosis without CT evidence of acute diverticulitis. 3. Cardiomegaly and cardiac pacemaker. Findings are highly suspicious for intraventricular thrombus at the apex. Cardiology evaluation is advised. 4. A percutaneous gastrostomy tube is in place. The bumper appears to be located outside of the gastric lumen within the abdominal wall. 5. There is a 5 mm left lower lobe pulmonary nodule. This is pathologically indeterminate. A dedicated chest CT is recommended in 3 months time for reassessment and full evaluation of the thorax. 6. Simple appearing fluid collections are present in the groin bilaterally with adjacent surgical clips and mild surrounding infiltration. These likely represent seromas. Correlate clinically. 7. There are subacute appearing bilateral anterior rib fractures. 8. Additional findings as above. ACT 112: Positive. There are findings on this exam that require communication between the performing entity and the patient following Patient Test Result Information Act ([place] Act 112) guidelines. Electronically signed by: Prakash Foster M.D. 06/25/2023 1:08 PM Gallbladder Ultrasound 06/25/23 13:24 ULTRASOUND RIGHT UPPER QUADRANT ABDOMEN CLINICAL HISTORY: Cholelithiasis. Abnormal CT scan. COMPARISON STUDY: Abdominal CT dated 06/25/2023. TECHNIQUE: Real-time, grayscale, and color flow sonography of the right upper quadrant of the abdomen was performed. Images are reviewed in the transverse and longitudinal planes. FINDINGS: Liver: The liver is normal in size and echotexture. There is no intrahepatic biliary ductal dilatation. The main portal vein is patent. Gallbladder: The gallbladder is distended and contains gallstones and biliary sludge. The gallbladder wall is top normal in thickness measuring up to 3 mm. No pericholecystic fluid is seen. A sonographic Gunderson's sign is reportedly absent. The common bile duct measures up to 0.4 cm in diameter. Pancreas: Visualized portions of the pancreatic head are normal in appearance. The majority of the pancreas was not well visualized due to overlying bowel gas. Right kidney: Survey images of the right kidney demonstrate normal size and echotexture. There is no hydronephrosis. Ascites: None. IMPRESSION: 1. Distended gallbladder which contains stones and sludge. There is no definitive sonographic evidence of acute cholecystitis. The CT findings remain concerning, and if clinically warranted a nuclear hepatobiliary scan should be obtained to assess for cystic duct obstruction. 2. There is no intra or extrahepatic biliary ductal dilatation. ACT 112: Negative or not required by law. Electronically signed by: Prakash Foster M.D. 06/25/2023 2:53 PM Code Status & VTE Plan VTE Prophylaxis Plan VTE Prophylaxis will be ordered: No
--- NOTE | 2023-06-25 16:12 | Gastrointestinal Consultation ---
Date of Consultation June 25, 2023 Assessment & Plan (1) Painless rectal bleeding: Pleasant man with rectal bleeding. 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 This does not sound like a diverticular hemorrhage as he is not going constantly to the bathroom. The problem here is his recent cardiac arrest and prolonged hospitalization after. I would rather not do colonoscopy if I didn't have to with the risk of sedation he would have. I have asked the spouse to call and get flexible sigmoidoscopy note faxed here. His hemoglobin is 9.7 which is lower than the last level that is on the chart of 15.3 that was in 2019. I am sure his hemoglobin was not in the normal range when he left the hospital. That makes it difficult to know how significant the bleed was. Will observe for now. Will see what the flex sig showed and decide if the benefits of colonoscopy outweigh the risks of the prep, procedure and sedation History of Present Illness Reason for Consultation: rectal bleeding History of Present Illness 72 year old man with a recent [facility]. He was up in [facility] [employer] [email or web address] and his troubles "started in the parking lot". He ended up getting a cath and arrested post cath. He was on ventilator for 5 weeks and ended up with a PEG tube for nutrition. He is still unable to take anything by mouth because they are worried about the muscles in his throat. He sees speech pathology for that. While in the hospital he had some rectal bleeding. He had a flexible sigmoidoscopy and three clips were put in because "they were too deep". He doesn't remember the procedure and his says they didn't really tell her what they found. She is unaware if the procedure was done with him sed ated or awake. He has been at home and started passing blood again. It is bright red and with stool but it also comes out into his underclothes. He says sometimes there is "more blood than stool". He has no pain with it. The bleeding mainly occurs only when he has bowel movements. He has a history of prostate cancer with radiation to the prostate. His last full colonoscopy was done five years [address] Dr. Davis. Allergies Allergy/AdvReac Type Severity Reaction Status Date / Time No Known Drug Allergies Allergy Unknown . Verified 12/31/21 14:17 Home Medications Medication Instructions Recorded Confirmed Type ascorbic acid (vitamin C) 500 mg 500 mg PO DAILY 05/07/20 01/04/23 History capsule aspirin 81 mg tablet,delayed 81 mg PO DAILY 05/07/20 06/25/23 History release (Adult Low Dose Aspirin) calcium carbonate 600 mg calcium 600 mg PO DAILY 05/07/20 01/04/23 History (1,500 mg) tablet carvedilol 25 mg tablet 25 mg PO BID 05/07/20 01/04/23 History ezetimibe 10 mg tablet 10 mg PO DAILY 05/07/20 06/25/23 History lisinopril 20 1 tab PO DAILY 05/07/20 01/04/23 History mg-hydrochlorothiazide 12.5 mg tablet multivitamin 1 tab PO DAILY 05/07/20 06/25/23 History omega-3 fatty acids 1,000 mg 1,000 mg PO DAILY 05/07/20 01/04/23 History capsule vit 2 tab PO DAILY 05/07/20 06/25/23 History [id number] 500 mg-50 mg-25 mg-40 mg tablet (Bioflex) cholecalciferol (vitamin D3) 50 50 mcg PO DAILY 12/31/20 01/04/23 History mcg (2,000 unit) capsule acetaminophen 500 mg tablet 500 mg PO Q6H PRN Pain 01/04/23 06/25/23 History (Tylenol Extra Strength) amiodarone 200 mg tablet 200 mg PO DAILY 06/25/23 06/25/23 History apixaban 5 mg tablet (Eliquis) 5 mg PO BID 06/25/23 06/25/23 History atorvastatin 80 mg tablet 80 mg PO HS 06/25/23 06/25/23 History calcium carbonate 400 mg calcium 400 mg PO DAILY 06/25/23 06/25/23 History (1,000 mg) chewable tablet calcium carbonate 500 mg calcium 500 mg PO DAILY 06/25/23 06/25/23 History (1,250 mg) chewable tablet docusate sodium 100 mg capsule 100 mg PO BID 06/25/23 06/25/23 History (Colace) metoprolol tartrate 50 mg tablet 50 mg PO QID 06/25/23 06/25/23 History sennosides 8.6 mg capsule (senna) 8.6 mg PO BID PRN Constipation 06/25/23 06/25/23 History sertraline 50 mg tablet 50 mg PO DAILY 06/25/23 06/25/23 History sodium bicarbonate 325 mg tablet 325 mg PO DAILY 06/25/23 06/25/23 History spironolactone 25 mg tablet 25 mg PO DAILY 06/25/23 06/25/23 History torsemide 20 mg tablet 20 mg PO DAILY 06/25/23 06/25/23 History Patient History Medical History Anxiety Arthritis BPH with elevated PSA Depression Elevated PSA Heart attack Hypercholesteremia Hypertension Surgical History H/O heart artery stent x 3 History of tonsillectomy No pertinent past surgical history S/P CABG x 2 Family History Father , 72yo Heart disease Rheumatic fever Mother , 74yo Heart disease Hypertension Anxiety Stroke Sister Breast cancer Multiple sclerosis Brother Myocardial infarction Brother Heart disease Hx of CABG Prostate cancer Brother Heart disease H/O heart artery stent Daughter No problems noted. Daughter No problems noted. Social History Smoking Status: Former smoker Cigarettes Per Day: 1/2 PPD x 20 years; Second Hand Exposure: No; Do You Dip or Chew Tobacco: No; Hx Alcohol Use: Yes (Social drinking;) Alcohol type: beer and wine Hx Substance Use: No Preferred Language: Pashto Communication Ability: Effective Visual Impairment: No Limitations Hearing Ability: Normal Salt Manager Required: No Beliefs That Will Affect Care: None marital status: Current Living Situation: Spouse current occupational status: retired current occupation: [employer] Feels Safe at Home: Yes Diet: other caffeine: Yes (2 cups/day) Review of Systems Review of Systems: All systems reviewed & are unremarkable except as noted in HPI & below Physical Exam Constitutional: WD/WN, vitals as above Eyes: PERRL, conjunctivae normal, anicteric sclerae Neck: trachea midline, no thyromegaly Respiratory: normal respiratory effort, lungs clear to auscultation Cardiovascular: RRR, no murmur, no edema Gastrointestinal (Abdomen): normal bowel sounds, soft, nontender, no hepatosplenomegaly PEG tube in place Musculoskeletal: Extremities: extremities normal to inspection Results & Data Vital Signs (Past 12 Hours) Vital Signs Temp Pulse Pulse Resp BP BP Pulse Ox 06/25/23 15:00 60 22 124/68 100 06/25/23 11:27 60 06/25/23 11:25 60 18 98 06/25/23 11:23 60 16 112/68 99 06/25/23 10:49 36.7 C 60 20 109/70 100 O2 Del Method 06/25/23 15:00 Room Air 06/25/23 11:27 06/25/23 11:25 Room Air 06/25/23 11:23 Room Air 06/25/23 10:49 Room Air Laboratory Results 06/25/23 06/25/23 06/25/23 Range/Units 13:45 11:30 11:30 WBC (4.8-10.8) K/ul RBC (4.70-6.10) M/uL Hgb (14.0-18.0) g/dl Hct (42.0-52.0) % MCV (80.0-100.0) fL MCH (25.0-34.0) pg MCHC (32.0-36.0) g/dL RDW Std Deviation (36.4-46.3) fL RDW Coeff of [place] (11.5-14.5) % Plt Count (130-400) K/uL MPV (9.4-12.4) fL Immature Gran % (Auto) % Neut % (Auto) % Lymph % (Auto) % Barren % (Auto) % Eos % (Auto) % Baso % (Auto) % Neut # (Auto) (1.40-6.50) K/uL Lymph # (Auto) (1.2-3.4) K/uL Barren # (Auto) (0.11-0.59) K/uL Eos # (Auto) (0-0.50) K/uL Baso # (Auto) (0-0.2) K/uL Immature Gran # (Auto) (0.01-0.20) K/uL PT 12.3 H (9.0-12.0) Seconds INR 1.1 (0.9-1.1) Sodium 138 (136-145) mmol/L Potassium 4.2 (3.5-5.1) mmol/L Chloride 102 (98-107) mmol/L Carbon Dioxide 27 (21-32) mmol/L Anion Gap 9 (3-11) BUN 24 H (6-23) mg/dl Creatinine 1.10 (0.6-1.4) mg/dl Est Cr Clr Drug Dosing 77.6 ml/min Est GFR ( Amer) 77.3 ml/min Est GFR (Non-Af Amer) 66.7 ml/min BUN/Creatinine Ratio 21.8 H (10-20) Glucose 115 H (70-99(Fasting)) mg/dl Calcium 9.5 (8.6-10.3) mg/dl Total Bilirubin 0.6 (0.2-1.0) mg/dl AST 22 (13-39) U/L ALT 29 (7-52) U/L Alkaline Phosphatase 111 H (34-104) U/L Troponin I High Sens 15.5 (0-20) pg/ml Total Protein 7.5 (6.0-8.3) gm/dl Albumin 3.7 (3.4-5.0) gm/dl Globulin 3.8 (2.5-4.0) gm/dl Albumin/Globulin Ratio 1.0 (0.9-2) Lipase 32 (11-82) U/L Urine Color Yellow Urine Appearance Clear (Clear) Urine pH 7.5 (4.5-7.5) Ur Specific [place] 1.016 (1.000-1.030) Urine Protein Negative (Negative) Urine Glucose (UA) Negative (Negative) Urine Ketones Negative (Negative) Urine Blood Negative (Negative) Urine Nitrite Negative (Negative) Urine Bilirubin Negative (Negative) Urine Urobilinogen Negative (Negative) Ur Leukocyte Esterase Negative (Negative) Blood Type Antibody Screen 06/25/23 06/25/23 06/25/23 Range/Units 11:30 11:15 11:15 WBC 8.78 (4.8-10.8) K/ul RBC 3.07 L (4.70-6.10) M/uL Hgb 9.7 L (14.0-18.0) g/dl Hct 30.4 L (42.0-52.0) % MCV 99.0 (80.0-100.0) fL MCH 31.6 (25.0-34.0) pg MCHC 31.9 L (32.0-36.0) g/dL RDW Std Deviation 64.7 H (36.4-46.3) fL RDW Coeff of [place] 18.1 H (11.5-14.5) % Plt Count 283 (130-400) K/uL MPV 9.2 L (9.4-12.4) fL Immature Gran % (Auto) 1.0 % Neut % (Auto) 69.6 % Lymph % (Auto) 18.1 % Barren % (Auto) 9.3 % Eos % (Auto) 1.3 % Baso % (Auto) 0.7 % Neut # (Auto) 6.11 (1.40-6.50) K/uL Lymph # (Auto) 1.59 (1.2-3.4) K/uL Barren # (Auto) 0.82 H (0.11-0.59) K/uL Eos # (Auto) 0.11 (0-0.50) K/uL Baso # (Auto) 0.06 (0-0.2) K/uL Immature Gran # (Auto) 0.09 (0.01-0.20) K/uL PT (9.0-12.0) Seconds INR (0.9-1.1) Sodium (136-145) mmol/L Potassium (3.5-5.1) mmol/L Chloride (98-107) mmol/L Carbon Dioxide (21-32) mmol/L Anion Gap (3-11) BUN (6-23) mg/dl Creatinine (0.6-1.4) mg/dl Est Cr Clr Drug Dosing ml/min Est GFR ( Amer) ml/min Est GFR (Non-Af Amer) ml/min BUN/Creatinine Ratio (10-20) Glucose (70-99(Fasting)) mg/dl Calcium (8.6-10.3) mg/dl Total Bilirubin (0.2-1.0) mg/dl AST (13-39) U/L ALT (7-52) U/L Alkaline Phosphatase (34-104) U/L Troponin I High Sens (0-20) pg/ml Total Protein (6.0-8.3) gm/dl Albumin (3.4-5.0) gm/dl Globulin (2.5-4.0) gm/dl Albumin/Globulin Ratio (0.9-2) Lipase (11-82) U/L Urine Color Urine Appearance (Clear) Urine pH (4.5-7.5) Ur Specific [place] (1.000-1.030) Urine Protein (Negative) Urine Glucose (UA) (Negative) Urine Ketones (Negative) Urine Blood (Negative) Urine Nitrite (Negative) Urine Bilirubin (Negative) Urine Urobilinogen (Negative) Ur Leukocyte Esterase (Negative) Blood Type O Positive Cancelled Antibody Screen NEGATIVE Cancelled Diagnostic Findings Abdomen/Pelvis CT 06/25/23 11:33 CT SCAN OF THE ABDOMEN AND PELVIS WITH IV CONTRAST CLINICAL HISTORY: Hematochezia. COMPARISON STUDY: Abdominal CT dated 05/06/2020. TECHNIQUE: Following the IV administration of 92 cc of Optiray 320, CT scan of the abdomen and pelvis is performed from the lung bases to the proximal femora. Images are reviewed in the axial, sagittal, and coronal planes. IV contrast was administered without complication. A dose lowering technique was utilized adhering to the principles of ALARA. The examination is degraded by streak artifact from the left arm which could not be elevated above the abdomen. CT DOSE: 1982.02 mGy.cm FINDINGS: Lung bases: The patient is status post midline sternotomy. The heart is enlarged and without pericardial effusion. Pacemaker leads are in place. Calcification of the apical myocardium suggests previous ischemia. There is likely intraventricular thrombus at the apex seen on axial image #55. There is elevation of the right hemidiaphragm with bibasilar scarring/atelectasis. No airspace consolidation or pleural effusion is identified. A 5 mm pulmonary nodule is seen at the left lung base on image #68. Liver: The contrast-enhanced liver is normal in size, contour, and attenuation. There is no intrahepatic biliary ductal dilatation. The hepatic veins and portal veins are patent. Gallbladder: There are layering calcified gallstones. The gallbladder is distended and there is pericholecystic infiltration. Spleen: Normal in size and attenuation. Pancreas: Unremarkable. Adrenal glands: Unremarkable. Kidneys: The contrast enhanced kidneys are normal in size and without hydronephrosis. The kidneys enhance symmetrically. A 2.4 cm cyst is seen in the left lower pole. Additional subcentimeter cortical hypodensities also likely represent cysts but are too small for definitive characterization. Abdominal vasculature: There is advanced atherosclerotic calcification and mild ectasia of the abdominal aorta. Bowel: A percutaneous gastrostomy tube is in place. The lumbar may be located outside of the stomach within the abdominal wall. The abdominal wall soft tissues are thickened at this site. There is moderate colonic diverticulosis without CT evidence of acute diverticulitis. No bowel obstruction is seen. Moderate fecal retention is noted throughout the colon. The appendix is well- visualized and normal. Peritoneum: There is no intraperitoneal free air or abdominal ascites. There is a fat-containing umbilical hernia. Lymphadenopathy: None. Pelvic viscera: The prostate gland is diminutive and heterogeneous, and contains metallic implants. The bladder wall is thickened trabeculated indicating chronic outlet obstruction. There is a 4.0 cm simple ovoid fluid collection in the right groin and a similar-appearing 3.3 cm fluid collection in the left groin. There is mild strandy infiltration, and these likely represent seromas. There are adjacent surgical clips. Skeletal structures: The skeletal structures are osteopenic. There are bilateral pars defects at L5 with 8 mm of anterolisthesis of L5-S1. There is moderate lumbosacral spondylosis. No lytic or blastic lesions are seen. There are subacute-appearing bilateral anterior rib fractures. IMPRESSION: 1. Cholelithiasis within a distended gallbladder. There is mild pericholecystic infiltration and findings are suspicious for acute cholecystitis. Clinical and laboratory correlation will be required. If warranted a right upper quadrant ultrasound could be considered for further assessment. 2. Colonic diverticulosis without CT evidence of acute diverticulitis. 3. Cardiomegaly and cardiac pacemaker. Findings are highly suspicious for intraventricular thrombus at the apex. Cardiology evaluation is advised. 4. A percutaneous gastrostomy tube is in place. The bumper appears to be located outside of the gastric lumen within the abdominal wall. 5. There is a 5 mm left lower lobe pulmonary nodule. This is pathologically indeterminate. A dedicated chest CT is recommended in 3 months time for reassessment and full evaluation of the thorax. 6. Simple appearing fluid collections are present in the groin bilaterally with adjacent surgical clips and mild surrounding infiltration. These likely represent seromas. Correlate clinically. 7. There are subacute appearing bilateral anterior rib fractures. 8. Additional findings as above. ACT 112: Positive. There are findings on this exam that require communication between the performing entity and the patient following Patient Test Result Information Act ([place] Act 112) guidelines. Electronically signed by: Prakash Foster M.D. 06/25/2023 1:08 PM Gallbladder Ultrasound 06/25/23 13:24 ULTRASOUND RIGHT UPPER QUADRANT ABDOMEN CLINICAL HISTORY: Cholelithiasis. Abnormal CT scan. COMPARISON STUDY: Abdominal CT dated 06/25/2023. TECHNIQUE: Real-time, grayscale, and color flow sonography of the right upper quadrant of the abdomen was performed. Images are reviewed in the transverse and longitudinal planes. FINDINGS: Liver: The liver is normal in size and echotexture. There is no intrahepatic biliary ductal dilatation. The main portal vein is patent. Gallbladder: The gallbladder is distended and contains gallstones and biliary sludge. The gallbladder wall is top normal in thickness measuring up to 3 mm. No pericholecystic fluid is seen. A sonographic Gunderson's sign is reportedly absent. The common bile duct measures up to 0.4 cm in diameter. Pancreas: Visualized portions of the pancreatic head are normal in appearance. The majority of the pancreas was not well visualized due to overlying bowel gas. Right kidney: Survey images of the right kidney demonstrate normal size and echotexture. There is no hydronephrosis. Ascites: None. IMPRESSION: 1. Distended gallbladder which contains stones and sludge. There is no definitive sonographic evidence of acute cholecystitis. The CT findings remain concerning, and if clinically warranted a nuclear hepatobiliary scan should be obtained to assess for cystic duct obstruction. 2. There is no intra or extrahepatic biliary ductal dilatation. ACT 112: Negative or not required by law. Electronically signed by: Prakash Foster M.D. 06/25/2023 2:53 PM
[2023-06-25] MEDS ORDERED: ACETAMINOPHEN 500 MG TAB PO PRN (17:46)
[2023-06-25] MEDS ORDERED: SENNA 8.6 MG TAB PO PRN (17:46)
[2023-06-25 18:52] LABS: Hematocrit (blood only) 26.2 % (42.0-52.0); Hemoglobin 8.3 g/dl (14.0-18.0)
--- NOTE | 2023-06-25 21:04 | Surgery Consultation ---
Date of Consultation June 25, 2023 Assessment & Plan (1) Gallbladder anomaly: The patient has been admitted on the hospitalist service secondary to rectal bleed. Gastroenterology has been consulted and is entertaining performing a flexible sigmoidoscopy. We will defer management of this problem to the primary service as well as gastroenterology. Concerning patient's gallstones and abnormal gallbladder on imaging this appears to be an incidental finding. As noted the patient has no pain in his abdomen a nd he has no postprandial pain or nausea or vomiting currently or in the preceding months. He does not have any abnormalities of his LFTs other than a slight elevation of the alkaline phosphatase. If concern remains the patient may have acute cholecystitis would be advisable to get a HIDA scan to definitively ascertain this. If the patient was found to have acute cholecystitis further discussion would need to be had concerning the best course of action due to the patient's recent cardiac events. Supervising Physician Co-Signing Physician Notes Patient discussed with Willie Kong overnight, labs and imaging reviewed, agree with above. For further details please see today's progress note. History of Present Illness Reason for Consultation: Cholelithiasis Attending Physician: Samina Ruvalcaba MD History of Present Illness This is a 72-year-old male who presented to [facility] emergency department secondary to rectal bleeding. Patient has a fairly complicated past medical history as the patient was visiting some family in [facility] recently and in March of this year he had a cardiac arrest and was hospitalized from March until mid May. The patient required having an AICD placement and also developed a lower GI bleed at that time where he underwent an endoscopy where he had multiple clips placed. The patient did have a prolonged intubation and he therefore had to have a PEG tube placed. Patient also reports a history of atrial flutter for which he is anticoagulated with Eliquis. The patient is subsequent return to [place] and he presented to [facility] emergency department secondary to rectal bleeding that is gotten worse over the past 2 years. Patient notes that the bleeding is painless. He does report that he was having dark bowel movements but now he is having gross blood in his stool. Secondary to his rectal bleeding he has been admitted to the hospital. He has been seen by gastroenterology who raised the concern that patient potentially has radiation proctitis from previous radiation or hemorrhoidal bleed. Gastroenterology is considering performing a flexible sigmoidoscopy but is hesitant to perform a colonoscopy due to the patient's recent cardiac issues. Since admission to the hospital the patient has had labs and imaging which independent reviewed. CT scan abdomen pelvis showed the patient had a distended gallbladder with cholelithiasis and some mild pericholecystic infiltration. The interpreting radiologist felt that these findings were suspicious for acute cholecystitis. Patient was noted to have diverticulosis without any evidence of diverticulitis. On this scan the patient was noted to have an intraventricular thrombus noted at the apex of his heart. A percutaneous gastrostomy tube was noted to be in place. A gallbladder ultrasound was subsequently performed that showed a distended gallbladder with stones and sludge. There is no definitive evidence of acute cholecystitis on this study. Labs include a CBC her white blood cell count and platelet count were normal. His hemoglobin and hematocrit were 8.3 and 26.2. Chemistry profile showed sodium and potassium along with his creatinine were normal. His BUN had a slight elevation at 24. There is no elevation of patient's bilirubin, transaminases, and he only had a slight elevation of his alkaline phosphatase at 111. There is no elevation of his lipase. Urinalysis was not indicative of infection. Due to the findings on ultrasound and CAT scan concerning the patient's gallbladder general surgery was asked to see the patient. I asked the patient about any abdominal pain which he specifically denies. He denies any prior abdominal surgeries. I did ask him if he has been having postprandial pain in the preceding months even prior to his hospitalization in [place] which he denies. He also denies any episodes of nausea or vomiting. He denies any fevers, shakes, or chills. At the time of my interview the patient was resting comfortably in bed and he was in no distress. Allergies Allergy/AdvReac Type Severity Reaction Status Date / Time No Known Drug Allergies Allergy Unknown . Verified 12/31/21 14:17 Home Medications Medication Instructions Recorded Confirmed Type aspirin 81 mg tablet,delayed 81 mg PO DAILY 05/07/20 06/25/23 History release (Adult Low Dose Aspirin) carvedilol 25 mg tablet 25 mg PO BID 05/07/20 01/04/23 History ezetimibe 10 mg tablet 10 mg PO DAILY 05/07/20 06/25/23 History lisinopril 20 1 tab PO DAILY 05/07/20 01/04/23 History mg-hydrochlorothiazide 12.5 mg tablet multivitamin 1 tab PO DAILY 05/07/20 06/25/23 History omega-3 fatty acids 1,000 mg 1,000 mg PO DAILY 05/07/20 01/04/23 History capsule vit 2 tab PO DAILY 05/07/20 06/25/23 History [id number]-[id number]-[id number] 500 mg-50 mg-25 mg-40 mg tablet (Bioflex) cholecalciferol (vitamin D3) 50 50 mcg PO DAILY 12/31/20 01/04/23 History mcg (2,000 unit) capsule acetaminophen 500 mg tablet 500 mg PO Q6H PRN Pain 01/04/23 06/25/23 History (Tylenol Extra Strength) amiodarone 200 mg tablet 200 mg PO DAILY 06/25/23 06/25/23 History apixaban 5 mg tablet (Eliquis) 5 mg PO BID 06/25/23 06/25/23 History atorvastatin 80 mg tablet 80 mg PO HS 06/25/23 06/25/23 History calcium carbonate 400 mg calcium 400 mg PO DAILY 06/25/23 06/25/23 History (1,000 mg) chewable tablet calcium carbonate 500 mg calcium 500 mg PO DAILY 06/25/23 06/25/23 History (1,250 mg) chewable tablet docusate sodium 100 mg capsule 100 mg PO BID 06/25/23 06/25/23 History (Colace) metoprolol tartrate 50 mg tablet 50 mg PO QID 06/25/23 06/25/23 History sennosides 8.6 mg capsule (senna) 8.6 mg PO BID PRN Constipation 06/25/23 06/25/23 History sertraline 50 mg tablet 50 mg PO DAILY 06/25/23 06/25/23 History sodium bicarbonate 325 mg tablet 325 mg PO DAILY 06/25/23 06/25/23 History spironolactone 25 mg tablet 25 mg PO DAILY 06/25/23 06/25/23 History torsemide 20 mg tablet 20 mg PO DAILY 06/25/23 06/25/23 History Patient History Medical History (Updated 06/26/23 @ 07:35 by Cedrick Wynne DO) Anxiety Arthritis BPH with elevated PSA Depression Elevated PSA Heart attack Hypercholesteremia Hypertension Surgical History H/O heart artery stent x 3 History of tonsillectomy No pertinent past surgical history S/P CABG x 2 Family History Father , 72yo Heart disease Rheumatic fever Mother , 74yo Heart disease Hypertension Anxiety Stroke Sister Breast cancer Multiple sclerosis Brother Myocardial infarction Brother Heart disease Hx of CABG Prostate cancer Brother Heart disease H/O heart artery stent Daughter No problems noted. Daughter No problems noted. Social History Smoking Status: Former smoker Cigarettes Per Day: 1/2 PPD x 20 years; Smoking End Date: 1992; Second Hand Exposure: No; Do You Dip or Chew Tobacco: No; Tobacco Cessation Education Requested by Patient: No Hx Alcohol Use: Yes Alcohol type: beer Hx Substance Use: No Preferred Language: Turkish Communication Ability: Effective Visual Impairment: No Limitations Hearing Ability: Normal [employer] Director Required: No Beliefs That Will Affect Care: None marital status: Current Living Situation: Spouse current occupational status: retired current occupation: [employer] Other Information That Helps Us Care for You: No Feels Safe at Home: Yes Safety Concerns: Feels Safe At This Time Diet: other caffeine: Yes (2 cups/day) Assistive Devices: Walker Review of Systems Constitutional: no fever and no chills Ear, Nose, Mouth, Throat: no hearing loss Respiratory: no cough and no dyspnea Cardiovascular: no chest pain Gastrointestinal: as per Subjective / HPI Genitourinary: no dysuria Musculoskeletal: no back pain Integumentary: no rash Neurologic: no localized weakness Physical Exam Constitutional: WD/WN, vitals as above Eyes: + anicteric sclerae ENMT: Ears: no hearing impairment and no external ear abnormality Neck: trachea midline Respiratory: normal respiratory effort; no respiratory distress and no labored breathing Cardiovascular: Rate/Rhythm: regular rate and regular rhythm Gastrointestinal (Abdomen): Abdomen is soft, nondistended, and nonrigid. There is no pain with palpation. Gunderson sign is negative. Musculoskeletal: No calf tenderness Skin: no rashes Neurologic: moves all extremities Psychiatric: A+Ox3, euthymic affect Results & Data Vital Signs (Past 12 Hours) Vital Signs Temp Pulse Pulse Resp BP BP Pulse Ox 06/25/23 17:00 60 18 131/72 98 06/25/23 16:05 60 06/25/23 15:00 60 22 124/68 100 06/25/23 11:27 60 06/25/23 11:25 60 18 98 06/25/23 11:23 60 16 112/68 99 06/25/23 10:49 36.7 C 60 20 109/70 100 O2 Del Method 06/25/23 17:00 Room Air 06/25/23 16:05 06/25/23 15:00 Room Air 06/25/23 11:27 06/25/23 11:25 Room Air 06/25/23 11:23 Room Air 06/25/23 10:49 Room Air PG Care Time/CCT Total # of Minutes Spent Total Time Spent with Patient: Total time spent is greater than 50% in coordination of care (as documented) at patient's floor/unit and/or counseling patient: Coding Level of Care Code 79513 INT INP/OBS CARE 3/75MIN Diagnoses Gallbladder anomaly Q44.1
[2023-06-25] MEDS: METOPROLOL TARTRATE 50 MG TAB PO SCH ×2 (21:43→23:59)
[2023-06-25] MEDS: ATORVASTATIN 40 MG TAB PO SCH (21:44)
[2023-06-25] MEDS: METOPROLOL TARTRATE 1 MG/ML VIAL IV SCH (23:19)
[2023-06-25 23:45] LABS: Hematocrit (blood only) 25.1 % (42.0-52.0); Hemoglobin 8.2 g/dl (14.0-18.0)
[2023-06-26] MEDS: PANTOprazole 40 MG in DEXTROSE 5% 100 ML IV SCH ×5 (01:06→20:39)
[2023-06-26] MEDS: ATORVASTATIN 40 MG TAB PO SCH (05:44)
--- NOTE | 2023-06-26 05:55 | Surgery Progress Note ---
Date of Service June 26, 2023 Assessment & Plan (1) Gallbladder anomaly: Plan: Patient has been admitted on the hospitalist service secondary to rectal bleeding. Treatment of this condition will be deferred to the primary service as well as gastroenterology. Consideration is being given to performing a flexible sigmoidoscopy but this is yet to be determined. As noted concerning the patient's abnormal gallbladder on imaging this appears to be an incidental finding as patient is entirely asymptomatic in this regard. If patient does have any symptomatology that raise the concern of cholecystitis consideration be given to performing a HIDA scan to ascertain this. The patient was found to have cholecystitis he would unlikely be a surgical candidate due to his recent cardiac issues. Admission and Anticipated Discharge Date Admission Date: June 25, 2023 Supervising Physician Co-Signing Physician Notes Patient seen and examined, labs and imaging reviewed, agree with above. 72-year-old male with complex cardiac and medical history over the past few months presents with GI bleed. During his evaluation a CT scan was performed and showed some gallstones and inflammation around his gallbladder concerning for cholecystitis. Right upper quadrant ultrasound was ordered and showed gallstones, but no gallbladder wall thickening, minimal pericholecystic fluid, and negative sonographic Gunderson sign. He denies any right upper quadrant abdominal pain. No history of postprandial pain. On exam he is afebrile with stable vitals, abdomen soft, nontender, nondistended. CT scan personally reviewed and interpreted and agree with the assessment of gallbladder with stones distention with mild infiltration pericholecystic fluid. Also of note, his PEG tube bumper appears to be within the wall of the stomach. His labs reviewed and he is anemic with a normal white blood cell count. At this point, there is no compelling evidence for cholecystitis. His other medical problems appear to take precedence over further evaluation, however if he develops symptoms or there is further concern HIDA scan could be ordered. GI is following and will address the GI bleed as well as the malposition of his G- tube. Surgery will follow peripherally, call with questions or concerns. Subjective Patient is resting comfortably in bed. He denies any nausea or vomiting or abdominal pain. Physical Exam Gastrointestinal (Abdomen): Abdomen is soft, nonrigid, nondistended and he does not have any pain with palpation. Results & Data Vital Signs (Past 12 Hours) Vital Signs Temp Pulse Pulse Resp BP BP Pulse Ox 07/30/23 03:25 36.5 C 75 16 114/64 99 06/25/23 23:38 65 122/69 06/25/23 23:19 77 144/74 H 06/25/23 20:45 36.4 C L 69 16 144/74 H 100 O2 Del Method 06/26/23 03:25 Room Air 06/25/23 23:38 06/25/23 23:19 06/25/23 20:45 Room Air PG Care Time/CCT Total # of Minutes Spent Total Time Spent with Patient: Total time spent is greater than 50% in coordination of care (as documented) at patient's floor/unit and/or counseling patient: Coding Level of Care Code 84557 SUB INP/OBS CARE 12/22MIN Diagnoses Gallbladder anomaly Q44.1
[2023-06-26 06:28] LABS: Basophils # (auto) 0.06 K/uL (0-0.2); Basophils % (auto) 0.8 %; Eosinophils # (auto) 0.14 K/uL (0-0.50); Eosinophils % (auto) 1.8 %; Hematocrit (blood only) 24.7 % (42.0-52.0); Hemoglobin 7.8 g/dl (14.0-18.0); Immature Granulocytes # (auto) 0.06 K/uL (0.01-0.20); Immature Granulocytes % (auto) 0.8 %; Lymphocytes # (auto) 2.24 K/uL (1.2-3.4); Mean Corpuscular Hemoglobin 31.3 pg (25.0-34.0); Mean Corpuscular Hgb Conc 31.6 g/dL (32.0-36.0); Mean Corpuscular Volume 99.2 fL (80.0-100.0); Mean Platelet Volume 9.3 fL (9.4-12.4); Monocytes # (auto) 0.78 K/uL (0.11-0.59); Monocytes % (auto) 10.1 %; Neutrophils # (auto) 4.44 K/uL (1.40-6.50); Neutrophils % (auto) 57.5 %; Platelet Count 213 K/uL (130-400); RDW Coefficient of Variation 17.9 % (11.5-14.5); RDW Standard Deviation 64.9 fL (36.4-46.3); Red Blood Count 2.49 M/uL (4.70-6.10); White Blood Count 7.72 K/ul (4.8-10.8)
[2023-06-26] MEDS: METOPROLOL TARTRATE 1 MG/ML VIAL IV SCH ×2 (06:41→13:25)
[2023-06-26 07:05] LABS: Albumin Globulin Ratio 1.1 (0.9-2); Albumin Level 3.2 gm/dl (3.4-5.0); Bilirubin,Total 0.6 mg/dl (0.2-1.0); Calcium 9.1 mg/dl (8.6-10.3); Creatinine Clr Calc Pharmacy 80.7 ml/min; Est GFR (African American) 81.8 ml/min; Est GFR (Non-African American) 70.6 ml/min; Potassium 4.1 mmol/L (3.5-5.1); Total Protein 6.2 gm/dl (6.0-8.3)
[2023-06-26 07:09] LABS: Polychromasia 1+
[2023-06-26] MEDS ORDERED: SODIUM CHLORIDE 0.9% 250 ML IV PRN (07:10)
--- NOTE | 2023-06-26 07:17 | Cardiology Consultation ---
Date of Consultation June 26, 2023 Assessment & Plan (1) Left ventricular thrombus: (2) Cardiomyopathy: (3) ICD (implantable cardioverter-defibrillator) in place: (4) Atrial flutter: (5) Acute blood loss anemia: Plan Complex 72-year-old patient presents with rectal bleeding. Recent cardiac history significant for cardiac arrest with cardiogenic shock requiring Impella implantation, ECMO, ultimately, ICD implantation. There is a cardiac catheterization report which states there was a stent placed to the distal left main, however, per review of discharge records the patient was not prescribed dual antiplatelet therapy. Patient denies any stent implantation and recent h ospitalization as noted above. Admission records suggest prescription of aspirin and Eliquis. Typically a patient who received a recent stent would be treated with clopidogrel plus anticoagulation. Recommend obtain additional medical records regarding details of recent hospitalization at [facility]. Carries history of chronic apical left ventricular mural thrombus. CAT scan images suggest calcified mural thrombus which appears chronic. Preliminary review of bedside echocardiogram demonstrates laminar LV apical thrombus. Prior echocardiograms reporting no evidence of thrombus while on warfarin with recent transition to Eliquis. Recommend restart oral anticoagulation with warfarin with IV heparin bridging when bleeding risk is deemed acceptable by the surgical and gastroenterologic services. Anticoagulation antiplatelet currently on hold due to rectal bleeding and anemia. Continue other cardiovascular medications including amiodarone for rhythm control, atorvastatin, Zetia, metoprolol, spironolactone, and torsemide. Nursing staff reported issues with PEG tube. Await GI input. History of Present Illness Reason for Consultation: Cardiac abnormality on CT Requesting Physician: Dr. Ruvalcaba Attending Physician: Samina Ruvalcaba MD History of Present Illness 72-year-old patient presented to the emergency department with bright red blood per rectum. Cardiology consultation requested due to possible left ventricular apical thrombus on CT. Patient carries a history of left ventricular apical aneurysm patch repair 1992, CABG x2, and drug-eluting stent placement x2. In March of this year patient suffered a cardiac arrest while visiting family in [place]. Complicated hospital course noted including placement of an Impella, ECMO, intubation, and CPR. During hospitalization there was concern for liver laceration and epigastric artery bleeding. Anticoagulation was placed on hold. Patient also developed epistaxis requiring packing by ENT. Dual-chamber Medtronic ICD placed 05/24/2023 without complication. He was discharged to rehab. Previously evaluated by [facility] cardiology clinic in February prior to cardiac arrest. Due to history of left ventricular apical thrombus and atrial flutter patient is chronically anticoagulated. He was transition from warfarin to Eliquis during recent hospitalization. Per review of records a transesophageal echo was performed 06/01/2023 with no evidence of apical mural thrombus. Left ventricular ejection fraction reported as 28%. Due to rectal bleeding, antiplatelet and anticoagulation currently on hold. Hemoglobin this a.m. down to 7.8 g/dL. Patient feeling well from a cardiovascular perspective. Denies chest discomfort or unusual shortness of breath. When questioned about cardiac catheterization during recent hospitalization he states "they told me all the arteries were open". Denies having any stent implanted. No shortness of breath, orthopnea, or PND. There is an issue with his feeding tube per CAT scan. Currently not receiving meds per PEG. No focal weakness, slurred speech, paresthesias, visual changes, or facial asymmetry. Allergies Allergy/AdvReac Type Severity Reaction Status Date / Time No Known Drug Allergies Allergy Unknown . Verified 12/31/21 14:17 Home Medications Medication Instructions Recorded Confirmed Type aspirin 81 mg tablet,delayed 81 mg PO DAILY 05/07/20 06/25/23 History release (Adult Low Dose Aspirin) carvedilol 25 mg tablet 25 mg PO BID 05/07/20 01/04/23 History ezetimibe 10 mg tablet 10 mg PO DAILY 05/07/20 06/25/23 History lisinopril 20 1 tab PO DAILY 05/07/20 01/04/23 History mg-hydrochlorothiazide 12.5 mg tablet multivitamin 1 tab PO DAILY 05/07/20 06/25/23 History omega-3 fatty acids 1,000 mg 1,000 mg PO DAILY 05/07/20 01/04/23 History capsule vit 2 tab PO DAILY 05/07/20 06/25/23 History M-[id number]-[id number] 500 mg-50 mg-25 mg-40 mg tablet (Bioflex) cholecalciferol (vitamin D3) 50 50 mcg PO DAILY 12/31/20 01/04/23 History mcg (2,000 unit) capsule acetaminophen 500 mg tablet 500 mg PO Q6H PRN Pain 01/04/23 06/25/23 History (Tylenol Extra Strength) amiodarone 200 mg tablet 200 mg PO DAILY 06/25/23 06/25/23 History apixaban 5 mg tablet (Eliquis) 5 mg PO BID 06/25/23 06/25/23 History atorvastatin 80 mg tablet 80 mg PO HS 06/25/23 06/25/23 History calcium carbonate 400 mg calcium 400 mg PO DAILY 06/25/23 06/25/23 History (1,000 mg) chewable tablet calcium carbonate 500 mg calcium 500 mg PO DAILY 06/25/23 06/25/23 History (1,250 mg) chewable tablet docusate sodium 100 mg capsule 100 mg PO BID 06/25/23 06/25/23 History (Colace) metoprolol tartrate 50 mg tablet 50 mg PO QID 06/25/23 06/25/23 History sennosides 8.6 mg capsule (senna) 8.6 mg PO BID PRN Constipation 06/25/23 History sertraline 50 mg tablet 50 mg PO DAILY 06/25/23 06/25/23 History sodium bicarbonate 325 mg tablet 325 mg PO DAILY 06/25/23 06/25/23 History spironolactone 25 mg tablet 25 mg PO DAILY 06/25/23 06/25/23 History torsemide 20 mg tablet 20 mg PO DAILY 06/25/23 06/25/23 History Patient History Medical History (Updated 06/26/23 @ 09:25 by Cedrick Wynne DO) Anxiety Arthritis BPH with elevated PSA Depression Elevated PSA Heart attack Hypercholesteremia Hypertension Surgical History H/O heart artery stent x 3 History of tonsillectomy No pertinent past surgical history S/P CABG x 2 Family History Father , 72yo Heart disease Rheumatic fever Mother , 74yo Heart disease Hypertension Anxiety Stroke Sister Breast cancer Multiple sclerosis Brother Myocardial infarction Brother Heart disease Hx of CABG Prostate cancer Brother Heart disease H/O heart artery stent Daughter No problems noted. Daughter No problems noted. Social History Smoking Status: Former smoker Cigarettes Per Day: 1/2 PPD x 20 years; Smoking End Date: 1992; Second Hand Exposure: No; Do You Dip or Chew Tobacco: No; Tobacco Cessation Education Requested by Patient: No Hx Alcohol Use: Yes Alcohol type: beer Hx Substance Use: No Preferred Language: Zambian Communication Ability: Effective Visual Impairment: No Limitations Hearing Ability: Normal County Health Officer Required: No Beliefs That Will Affect Care: None marital status: Current Living Situation: Spouse current occupational status: retired current occupation: [email or web address] Other Information That Helps Us Care for You: No Feels Safe at Home: Yes Safety Concerns: Feels Safe At This Time Diet: other caffeine: Yes (2 cups/day) Assistive Devices: Walker Review of Systems Review of Systems: All systems reviewed & are unremarkable except as noted in Subjective Physical Exam Constitutional: well nourished and + ill appearing; no acute distress Respiratory: normal respiratory effort; no respiratory distress, no labored breathing and no retractions Auscultation: no crackles, no rales, no rhonchi and no wheezes Cardiovascular: Rate/Rhythm: regular rate and regular rhythm Heart Sounds: normal S1 and normal S2; no murmur Extremities: no edema Gastrointestinal (Abdomen): Inspection/Auscultation: normal bowel sounds; + abdomen abnormal to inspection (+ PEG) and abdomen not distended Percussion/Palpation: abdomen soft; no guarding and abdomen not rigid Neurologic: CN's II-XI intact bilaterally and moves all extremities; no focal motor deficits Results & Data Vital Signs (Past 12 Hours) Vital Signs Temp Pulse Pulse Resp BP BP Pulse Ox 06/26/23 06:41 70 118/70 06/26/23 03:25 36.5 C 75 16 114/64 99 06/25/23 23:38 65 122/69 06/25/23 23:19 77 144/74 H 06/25/23 20:45 36.4 C L 69 16 144/74 H 100 O2 Del Method 06/26/23 06:41 06/26/23 03:25 Room Air 06/25/23 23:38 06/25/23 23:19 06/25/23 20:45 Room Air Laboratory Results Cardiac Enzymes 06/25/23 06/26/23 Range/Units 11:30 05:42 AST 22 20 (13-39) U/L Troponin I High Sens 15.5 (0-20) pg/ml Coagulation 06/25/23 Range/Units 11:30 PT 12.3 H (9.0-12.0) Seconds CBC 06/25/23 06/25/23 06/25/23 Range/Units 11:30 18:09 23:32 WBC 8.78 (4.8-10.8) K/ul RBC 3.07 L (4.70-6.10) M/uL Hgb 9.7 L 8.3 L 8.2 L (14.0-18.0) g/dl Hct 30.4 L 26.2 L 25.1 L (42.0-52.0) % Plt Count 283 (130-400) K/uL Neut # (Auto) 6.11 (1.40-6.50) K/uL Lymph # (Auto) 1.59 (1.2-3.4) K/uL Banks # (Auto) 0.82 H (0.11-0.59) K/uL Eos # (Auto) 0.11 (0-0.50) K/uL Baso # (Auto) 0.06 (0-0.2) K/uL 06/26/23 Range/Units 05:42 WBC 7.72 (4.8-10.8) K/ul RBC 2.49 L (4.70-6.10) M/uL Hgb 7.8 L (14.0-18.0) g/dl Hct 24.7 L (42.0-52.0) % Plt Count 213 (130-400) K/uL Neut # (Auto) 4.44 (1.40-6.50) K/uL Lymph # (Auto) 2.24 (1.2-3.4) K/uL Banks # (Auto) 0.78 H (0.11-0.59) K/uL Eos # (Auto) 0.14 (0-0.50) K/uL Baso # (Auto) 0.06 (0-0.2) K/uL Comprehensive Metabolic Panel 06/25/23 06/26/23 Range/Units 11:30 05:42 Sodium 138 139 (136-145) mmol/L Potassium 4.2 4.1 (3.5-5.1) mmol/L Chloride 102 104 (98-107) mmol/L Carbon Dioxide 27 28 (21-32) mmol/L BUN 24 H 21 (6-23) mg/dl Creatinine 1.10 1.05 (0.6-1.4) mg/dl Glucose 115 H 92 (70-99(Fasting)) mg/dl Calcium 9.5 9.1 (8.6-10.3) mg/dl AST 22 20 (13-39) U/L ALT 29 25 (7-52) U/L Alkaline Phosphatase 111 H 89 (34-104) U/L Total Protein 7.5 6.2 (6.0-8.3) gm/dl Albumin 3.7 3.2 L (3.4-5.0) gm/dl Intake and Output 06/25/23 06/26/23 06/26/23 22:59 06:59 14:59 Intake Total 1220 / 1420 200 / 1420 Output Total 326 / 526 200 / 526 Balance 894 / 894 0 / 894 Intake: IV 1220 / 1420 200 / 1420 PANTOprazole 40 mg In Dextrose 100 / 300 200 / 300 5% 100 ml @ 8 MG/HR 20 mls/hr IV Q5H [facility] Rx#:[id number] PANTOprazole 80 mg In Dextrose 120 / 120 5% 100 ml @ 400 mls/hr IV NOW ONE Rx#:[id number] Sodium Chloride 0.9% 1000ML 1, 1000 / 1000 000 ml @ 999 mls/hr IV .Q1H1M [facility] Rx#:[id number] Output: Urine 325 / 525 200 / 525 # Bowel Movements 1 / Other: Weight 108.862 kg 107.9 kg Weight Measurement Method Built in [facility] Built in [facility] Diagnostic Findings Cardiac catheterization report summary 04/15/2023: Coronary Findings Diagnostic Dominance: Right Left Main: 0% stenosed Mid LM to Ost LAD lesion. Left Anterior Descending: Mid LAD lesion is 100% stenosed. Right Coronary Artery: Prox RCA to Dist RCA lesion is 90% stenosed. Graft To Ramus: There is mild diffuse disease throughout. Graft To RPDA: There is moderate diffuse disease throughout. Intervention Mid LM to Ost LAD lesion: Stent: Stent was successfully placed. Post- Intervention Lesion Assessment: There is a 0% residual stenosis post intervention.
[2023-06-26] MEDS ORDERED: SPIRONOLACTONE 25 MG TAB PO SCH (09:00)
[2023-06-26] MEDS ORDERED: AMIODARONE 200 MG TAB PO SCH (09:00)
[2023-06-26] MEDS ORDERED: SERTRALINE HCL 50 MG TABLET PO SCH (09:00)
--- NOTE | 2023-06-26 10:35 | Electrocardiogram Report ---
Test Reason : Blood Pressure : / mmHG Vent. Rate : 060 BPM Atrial Rate : 060 BPM P-R Int : 234 ms QRS Dur : 102 ms QT Int : 446 ms P-R-T Axes : -27 064 102 degrees QTc Int : 446 ms Atrial-paced rhythm with prolonged AV conduction Low voltage QRS Cannot rule out Anterior infarct , age undetermined T wave abnormality, consider lateral ischemia Abnormal ECG No previous ECGs available Confirmed by Akil Braun ([id number]) on 06/26/2023 10:35:19 AM Referred By: Confirmed By:Akil Braun
--- NOTE | 2023-06-26 10:51 | Gastroenterology Progress Note ---
Date of Service June 26, 2023 Assessment & Plan (1) Painless rectal bleeding: Plan: Bleeding seems to have at least slowed down. H/H shows a slow drift down. Would still like to see what was found on prior flex sig because not a lot can be done about radiation proctitis. I am a little baffled by report on PEG tube as it doesn't seem to fit clinically. However I can't approve meds or feedings through it until we know it is in proper position. Will order contrast through PEG tube Admission and Anticipated Discharge Date Admission Date: June 25, 2023 Subjective Had bowel movement with blood over night but none since. Feeling well. Report from CT says "PEG bumper outside gastric wall and into abdominal wall". Patient says they have never had problem putting meds and feedings though it. Physical Exam Constitutional: WD/WN, vitals as above Gastrointestinal (Abdomen): normal bowel sounds, soft, nontender, no hepatosplenomegaly Results & Data Vital Signs (Past 12 Hours) Vital Signs Temp Pulse Pulse Resp BP BP Pulse Ox 06/26/23 09:55 36.6 C 66 18 112/67 96 06/26/23 09:40 36.4 C L 67 18 106/67 96 06/26/23 09:16 36.6 C 65 18 113/67 96 06/26/23 07:30 36.7 C 63 18 115/67 95 06/26/23 06:41 70 118/70 06/26/23 03:25 36.5 C 75 16 114/64 99 06/25/23 23:38 65 122/69 06/25/23 23:19 77 144/74 H O2 Del Method 06/26/23 09:55 06/26/23 09:40 06/26/23 09:16 06/26/23 07:30 Room Air 06/26/23 06:41 06/26/23 03:25 Room Air 06/25/23 23:38 06/25/23 23:19
[2023-06-26] MEDS ORDERED: ACETAMINOPHEN 1,000 MG/100 ML VIAL IV PRN (11:41)
[2023-06-26] MEDS ORDERED: ONDANSETRON INJ 2 MG/ML 2 ML VIAL IV PRN (11:42)
[2023-06-26] MEDS: TORSEMIDE 20 MG TAB PO SCH (11:50)
[2023-06-26] MEDS: SODIUM BICARBONATE 650 MG TAB PO SCH (11:50)
[2023-06-26] MEDS: EZETIMIBE 10 MG TABLET PO SCH (11:50)
[2023-06-26 12:19] LABS: Hematocrit (blood only) 27.4 % (42.0-52.0)
--- NOTE | 2023-06-26 15:28 | XRay Report ---
KUB with oral contrast HISTORY: verify PEG placement- WITH CONTRAST COMPARISON: Abdomen and pelvis CT 06/25/2023. FINDINGS: Coal Handler images demonstrate a percutaneous gastrostomy tube within the left upper quadrant. Th ere is moderate fecal retention again noted. No dilated loops of bowel to suggest an obstruction. Pac emaker wires are partially visualized. There is chronic elevation the right hemidiaphragm. 50 cc of w ater-soluble contrast was injected into the percutaneous gastrostomy tube. Contrast is seen within th e stomach and proximal duodenum. No extraluminal contrast to suggest a leak. There are surgical clips noted within the inguinal regions. No renal calculi. No ureteral calculi. No pneumoperitoneum or pn eumatosis. IMPRESSION: The percutaneous gastrostomy tube appears in good position. No extravasation of contrast to suggest a leak. ACT 112: Negative or not required by law. Electronically signed by: Skyler Collins M.D. 06/26/2023 3:25 PM
[2023-06-26] MEDS ORDERED: METOPROLOL TARTRATE 1 MG/ML VIAL IV SCH (18:00)
--- NOTE | 2023-06-26 18:06 | Hospitalist Progress Note ---
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 BRBPR/Acute GI Bleed/Acute blood loss anemia Pt on Eliquis for Hx of atrial flutter, was recently switched from Coumadin to Eliquis for unclear reasons CT abd/pelvis notes seromas in the groin bilaterally in the ED. Discharge Summary from [facility] notes CTA abd/pelvis in the past(March-April) that showed a liver laceration with active bleed from the R superior epigastric artery. Continue PPI drip Transfused 1 unit RBC this morning. Repeat H/H at 8pm Flex sig report from [facility] from 04/25 reviewed--showed rectal ulcer with 2 exposed vessels. 1 vessel with slow oozing and 1 clip was placed. Defer further management go GI Gallbladder changes Noted on CT abd/pelvis done today but patient with no symptoms and LFTs are normal. CT abd/pelvis "Cholelithiasis within a distended gallbladder. There is mild pericholecystic infiltration and findings are suspicious for acute cholecystitis. Clinical and laboratory correlation will be required. If warranted a right upper quadrant ultrasound could be considered for further assessment." Gallbladder US: "1. Distended gallbladder which contains stones and sludge. There is no definitive sonographic evidence of acute cholecystitis. The CT findings remain concerning, and if clinically warranted a nuclear hepatobiliary scan should be obtained to assess for cystic duct obstruction. 2. There is no i ntra or extrahepatic biliary ductal dilatation." General Surgery consulted by the ED- appreciate recs Will continue to monitor Intraventricular thrombus at [place] CT abd/pelvis:"There is likely intraventricular thrombus at the apex seen on axial image #55.""Cardiomegaly and cardiac pacemaker. Findings are highly suspicious for intraventricular thrombus at the apex. 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 Cardiology consult- appreciate recs Pulmonary Nodules CT scan notes pulmonary nodules, recommended CT scan repeat in 3 months. Dysphagia Has PEG tube. Concern for PEG tube malposition based on CT imaging. Small bowel follow through confirms placement is correct. Discussed with GI, ok to use PEG tube. Will resume enteral medications Hx of Cardiac Arrest s/p dual chamber Medtronic ICD placement/Atrial Flutter Pt's records and hospital discharge summary reviewed in EPIC from [facility]. 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 04/13/23-Pt with collapse and cardiac arrest in [facility] while visiting family. Course included 8 mins of CPR and shock, placement of Impella CP, ECMO and extubation on 04/27. 05/01- had nose bleed that required packing by ENT and needed a blood transfusion. Had a CTA abd/pelvis that also showed a liver laceration with active bleed from the R superior epigastric artery, +blood cultures (staph capitis). 05/20- PEG tube placed for dysphagia related to intubation, pt taking only ice chips by mouth 05/24-Dual medtronic ICD placed 05/25- Discharged to acute rehab (during rehab had cardioversion for atrial flutter) 06/08- Discharged from rehab to home. Walks with walker, PT/OT/RADIOLOGY ASSISTANT services at home. Coumadin was switched to Eliquis and Coreg switched to metoprolol during his hospitalizations. Lisinopril-hctz held, placed on spironolactone, torsemide and amiodarone. Holding lisinopril- hctz, continue spironolactone, torsemide and metoprolol with cardiology input on BP in setting of GI bleed. Continue amiodarone, hold aspirin and eliquis. Prostate Cancer Hx Diagnosed in 2019 Follows with urology and radiation oncology locally Diet: NPO for procedure, otherwise has PEG tube for feedings CODE STATUS: DNR/DNI DVT prophylaxis: Holding Eliquis due to acute GI bleed. SCDs and ambulation Dispo: PCU/tele Admission and Anticipated Discharge Date Admission Date: June 25, 2023 Subjective Patient was admitted yesterday for bright red blood per rectum. Received 1 unit RBC this morning This afternoon went to rest room and had another bloody BM--stool was dark also with bright red blood Awaiting faxed copy of chart from [facility] (not yet received) but upon further investigation, a copy of his flex sigmoidoscopy report was found in EMR Link via "Care Everywhere" Procedures Note section. Patient himself feels well. Denies chest pain, shortness of breath. Excerpt from Flex Sig from 04/25/23 showed: Flexible Sigmoidoscopy Procedure Note Date of Procedure: 04/25/2023 Referring Physician: No ref. provider found Primary Physician: Oli Puente MD Attending Physician: Joni Faith MD Fellow: Dennis Mireles MD Indications: Hematochezia/bright red blood per rectum Previous colonoscopy: Yes -- Date: 04/22/23 Medications:ICU administered Scopes: [id number] Procedure Details: Full disclosures of risks were reviewed with patient as detailed on the consent form. The patient was placed in the left lateral decubitus position and monitored with continuous pulse oximetry, interval blood pressure monitoring and direct observations. After anorectal examination was performed, the colonoscope was inserted into the rectum and advanced under direct vision to the rectum. The procedure was considered not difficult. During withdrawal examination, the final quality of the prep was Orma Bowel Prep Scale: Left Colon: Grade 1- (portion of mucosa of the colon segment seen, but other areas of the colon segment are not well seen because of staining, residual stool, and/or opaque liquid) A careful inspection was made as the colonoscope was withdrawn. A retroflexed view of the rectum was not performed; findings and interventions are described below. The patient was recovered in the Intensive Care Unit (ICU). Scope Times: Insertion Time: 1542 Exit Time: 1559 Findings: Old blood encountered immediately upon entry into rectal vault. Mucosa washed and suctioned, revealing severely ulcerated rectal vault. Previously placed clips appreciated. Large soft clot was overlying the entire ulcerated area of the rectum which was carefully removed using suction, revealing two small vessels in the ulcer bed, one with a slow ooze of blood. One clip was placed on each of these suspected vessels. Area was lavaged after application of clips with no further bleeding noted. Scope was advanced to a maximum distance of 20 cm without any further fresh blood or ulcers seen. Intervention(s): Hemorrhage control/prevention: Clippin clip(s) placed, location: rectum Complication(s): none EBL: <5 ml Impression(s): Bleeding source likely related to 2 small vessels in rectal vault. One hemoclip was placed on each with good hemostasis. Recommendation(s): Do not replace rectal tube Monitor stools; expect bloody or melenic stools with next 2-3 bowel movements due to residual blood In the rectum Trend H/H and transfuse as needed Review of Systems Review of Systems: as above Physical Exam Physical Exam: Appears stated age, no acute distress, non toxic Respiratory: Breathing comfortably on room air, no wheezing/rhonchi/rales Cardiovascular: regular rate and rhythm, no murmurs/rubs Gastrointestinal (Abdomen): soft, non tender Musculoskeletal: No edema Neurologic: awake, alert, spontaneously moving extremities, answers questions appropriately Results & Data Results & Data Vital Signs (Past 12 Hours) Vital Signs Temp Pulse Pulse Resp BP BP Pulse Ox 06/26/23 16:00 66 06/26/23 15:25 36.4 C L 62 18 136/70 97 06/26/23 08:00 06/26/23 11:59 36.5 C 66 114/69 96 06/26/23 11:25 36.8 C 66 18 127/66 96 06/26/23 10:25 36.5 C 77 120/63 96 06/26/23 09:55 36.6 C 66 18 112/67 96 06/26/23 09:40 36.4 C L 67 18 106/67 96 06/26/23 09:16 36.6 C 65 18 113/67 96 06/26/23 07:30 36.7 C 63 18 115/67 95 06/26/23 06:41 70 118/70 O2 Del Method 06/26/23 16:00 06/26/23 15:25 Room Air 06/26/23 08:00 Room Air 06/26/23 11:59 06/26/23 11:25 06/26/23 10:25 06/26/23 09:55 06/26/23 09:40 06/26/23 09:16 06/26/23 07:30 Room Air 06/26/23 06:41
[2023-06-26] MEDS ORDERED: ACETAMINOPHEN SUSP 500 MG/15.6 ML UDP PEG PRN ×2 (19:26→19:45)
[2023-06-26 20:48] LABS: Hematocrit (blood only) 31.2 % (42.0-52.0)
[2023-06-26] MEDS: ATORVASTATIN 40 MG TAB PEG SCH (21:12)
[2023-06-26] MEDS: METOPROLOL TARTRATE 25 MG TAB PEG SCH (21:13)
[2023-06-27] MEDS: PANTOprazole 40 MG in DEXTROSE 5% 100 ML IV SCH ×4 (01:51→17:36)
[2023-06-27 07:41] LABS: Basophils # (auto) 0.05 K/uL (0-0.2); Basophils % (auto) 0.6 %; Eosinophils # (auto) 0.12 K/uL (0-0.50); Eosinophils % (auto) 1.5 %; Hematocrit (blood only) 27.6 % (42.0-52.0); Hemoglobin 9.1 g/dl (14.0-18.0); Immature Granulocytes # (auto) 0.04 K/uL (0.01-0.20); Immature Granulocytes % (auto) 0.5 %; Lymphocytes # (auto) 1.88 K/uL (1.2-3.4); Mean Corpuscular Hemoglobin 31.4 pg (25.0-34.0); Mean Corpuscular Volume 95.2 fL (80.0-100.0); Mean Platelet Volume 9.2 fL (9.4-12.4); Monocytes # (auto) 0.91 K/uL (0.11-0.59); Monocytes % (auto) 11.2 %; Neutrophils # (auto) 5.16 K/uL (1.40-6.50); Neutrophils % (auto) 63.2 %; Platelet Count 226 K/uL (130-400); RDW Coefficient of Variation 18.3 % (11.5-14.5); RDW Standard Deviation 63.8 fL (36.4-46.3); White Blood Count 8.16 K/ul (4.8-10.8)
[2023-06-27 07:49] LABS: Albumin Globulin Ratio 1.1 (0.9-2); Albumin Level 3.3 gm/dl (3.4-5.0); BUN Creatinine Ratio 14.9 (10-20); Bilirubin,Total 0.9 mg/dl (0.2-1.0); Calcium 9.3 mg/dl (8.6-10.3); Creatinine Clr Calc Pharmacy 83.3 ml/min; Est GFR (African American) 85.7 ml/min; Globulin 3.1 gm/dl (2.5-4.0); Potassium 4.1 mmol/L (3.5-5.1); Total Protein 6.4 gm/dl (6.0-8.3)
[2023-06-27] MEDS: METOPROLOL TARTRATE 25 MG TAB PEG SCH ×4 (08:48→21:02)
[2023-06-27] MEDS: TORSEMIDE 20 MG TAB PO SCH (08:49)
[2023-06-27] MEDS: SERTRALINE HCL 50 MG TABLET PEG SCH (08:49)
[2023-06-27] MEDS: SODIUM BICARBONATE 650 MG TAB PO SCH (08:49)
[2023-06-27] MEDS: SPIRONOLACTONE 25 MG TAB PEG SCH (08:50)
[2023-06-27] MEDS: AMIODARONE 200 MG TAB PEG SCH (08:50)
[2023-06-27] MEDS: EZETIMIBE 10 MG TABLET PO SCH (08:50)
[2023-06-27] MEDS ORDERED: FUROSEMIDE INJ 20 MG/2 ML VIAL IV SCH (09:00)
--- NOTE | 2023-06-27 11:59 | Cardiology Progress Note ---
Date of Service June 27, 2023 Assessment & Plan (1) Left ventricular thrombus: (2) Cardiomyopathy: (3) ICD (implantable cardioverter-defibrillator) in place: (4) Atrial flutter: (5) Acute blood loss anemia: Plan Complex 72-year-old patient presents with rectal bleeding. Recent cardiac history significant for cardiac arrest with cardiogenic shock requiring Impella implantation, ECMO, ultimately, ICD implantation. There is a cardiac catheterization report which states there was a stent placed to the distal left main, however, per review of discharge records the patient was not prescribed dual antiplatelet therapy. Patient denies any stent implantation and recent hospitalization as noted above. Admission records suggest prescription of aspirin and Eliquis. Typically a patient who received a recent stent would be treated with clopidogrel plus anticoagulation. Recommend obtain additional medical records regarding details of recent hospitalization at [facility]. Carries history of chronic apical left ventricular mural thrombus. CAT scan images suggest calcified mural thrombus which appears chronic. Resting echocardiography as summarized below. Anticoagulation and antiplatelet therapy are currently on hold due to rectal bleeding and anemia. Recommend resumption of aspirin and oral anticoagulation with warfarin with IV heparin bridging when bleeding risk is deemed acceptable by the surgical and gastroenterologic services. Continue other cardiovascular medications including amiodarone for rhythm control, atorvastatin, Zetia, metoprolol, spironolactone, and torsemide. Admission and Anticipated Discharge Date Admission Date: June 25, 2023 Subjective Patient seen and examined. Chart, medications, and telemetry reviewed. Bloody bowel movement last last night around 7:30. Blood on undergarments this morning. No chest pain. No shortness of breath. No orthopnea or PND. No lower extremity peripheral edema. No dizziness or syncope. Telemetry: Sinus in the 70s. June 26, 2023 TTE Interpretation Summary ([facility], Dr. Wynne): Mildly reduced LV systolic function. EF 45 to 50%. Moderate LVH and segments with normal wall motion. Laminar apical mural thrombus. Moderate size apical wall motion abnormality with akinesis to dyskinesis of the segments. Small size apical aneurysm. Moderately dilated left atrium. Mildly dilated aortic root. Review of Systems Review of Systems: Complete review of systems is otherwise as stated above, negative, noncontributory. Physical Exam Physical Exam: General: A&Ox3. NAD. HENT: Normocephalic. Atraumatic. Eyes: PER. Conjunctiva pink, sclera clear. Neck: No carotid bruits. No JVD. Heart: RRR. No murmur. PMI is nondisplaced. Chest: Left subclavian device incision/pocket look great, without erythema or hematoma Lungs: Clear to auscultation. Abdomen: PEG tube. +BS. Soft. Nontender. Extremities: No clubbing, cyanosis, or significant edema. Limited neurological examination is without focal deficits. Pulses: radial=2/4, posterior tibial=2/4. Results & Data Vital Signs (Past 12 Hours) Vital Signs Temp Pulse Resp BP Pulse Ox O2 Del Method 06/27/23 11:40 36.9 C 75 18 127/68 96 Room Air 06/27/23 07:59 36.5 C 86 18 134/61 97 Room Air 06/27/23 03:00 36.4 C L 72 19 119/71 95 Room Air Laboratory Results Cardiac Enzymes 06/27/23 Range/Units 07:07 AST 27 (13-39) U/L CBC 06/26/23 06/26/23 06/27/23 Range/Units 11:58 20:30 07:07 WBC 8.16 (4.8-10.8) K/ul RBC 2.90 L (4.70-6.10) M/uL Hgb 9.0 L 10.0 L 9.1 L (14.0-18.0) g/dl Hct 27.4 L 31.2 L 27.6 L (42.0-52.0) % Plt Count 226 (130-400) K/uL Neut # (Auto) 5.16 (1.40-6.50) K/uL Lymph # (Auto) 1.88 (1.2-3.4) K/uL [place] # (Auto) 0.91 H (0.11-0.59) K/uL Eos # (Auto) 0.12 (0-0.50) K/uL Baso # (Auto) 0.05 (0-0.2) K/uL Comprehensive Metabolic Panel 06/27/23 Range/Units 07:07 Sodium 137 (136-145) mmol/L Potassium 4.1 (3.5-5.1) mmol/L Chloride 105 (98-107) mmol/L Carbon Dioxide 25 (21-32) mmol/L BUN 15 (6-23) mg/dl Creatinine 1.01 (0.6-1.4) mg/dl Glucose 98 (70-99(Fasting)) mg/dl Calcium 9.3 (8.6-10.3) mg/dl AST 27 (13-39) U/L ALT 32 (7-52) U/L Alkaline Phosphatase 93 (34-104) U/L Total Protein 6.4 (6.0-8.3) gm/dl Albumin 3.3 L (3.4-5.0) gm/dl Intake and Output 06/26/23 06/27/23 06/27/23 22:59 06:59 14:59 Intake Total 197.667 / 1257.667 650 / 1257.667 Output Total 1050 / 1351 Balance 197.667 / -93.333 -400 / -93.333 Intake: IV 197.667 / 497.667 200 / 497.667 PANTOprazole 40 mg In Dextrose 197.667 / 497.667 200 / 497.667 5% 100 ml @ 8 MG/HR 20 mls/hr IV Q5H DESTINY Rx#:[id number] Oral 450 / 450 Output: Urine 1050 / 1350 # Bowel Movements 0 / 1 Other: # Unmeasured Voids 2 Weight 106.3 kg Weight Measurement Method Built in [facility]
--- NOTE | 2023-06-27 13:17 | Hospitalist Progress Note ---
Date of Service June 27, 2023 Assessment & Plan (1) Painless rectal bleeding: (2) Acute blood loss anemia: (3) Prostate cancer: (4) Gallbladder anomaly: (5) Pulmonary nodule: (6) 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 BRBPR/Acute GI Bleed/Acute blood loss anemia Pt on Eliquis for Hx of atrial flutter, was recently switched from Coumadin to Eliquis for unclear reasons CT abd/pelvis notes seromas in the groin bilaterally in the ED. continue PPI drip Transfused 1 unit RBC06/26 with appropriate response Flex sig report from [facility] from 04/25/23 reviewed--showed rectal ulcer with 2 exposed vessels. 1 vessel with slow oozing and 1 clip was placed. Defer further management go GI Repeat H/H again later this afternoon Transfuse if Hb < 8 Gallbladder changes Noted on CT abd/pelvis done on admission but patient with no symptoms and LFTs are normal. CT abd/pelvis "Cholelithiasis within a distended gallbladder. There is mild pericholecystic infiltration and findings are suspicious for acute cholecystitis. Clinical and laboratory correlation will be required. If warranted a right upper quadrant ultrasound could be considered for further assessment." Gallbladder US: "1. Distended gallbladder which contains stones and sludge. There is no definitive sonographic evidence of acute cholecystitis. The CT findings remain concerning, and if clinically warranted a nuclear hepatobiliary scan should be obtained to assess for cystic duct obstruction. 2. There is no intra or extrahepatic biliary ductal dilatation." General Surgery consulted by the ED- appreciate recs Will continue to monitor Intraventricular thrombus at [place] CT abd/pelvis:"There is likely intraventricular thrombus at the apex seen on axial image #55.""Cardiomegaly and cardiac pacemaker. Findings are highly suspicious for intraventricular thrombus at the apex. 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 Cardiology consult- appreciate recs Pulmonary Nodules CT scan notes pulmonary nodules, recommended CT scan repeat in 3 months. Dysphagia Has PEG tube. Initial concern for PEG displacement based on CT findings. Small bowel follow through confirms placement and PEG cleared for use by GI Hx of Cardiac Arrest s/p dual chamber Medtronic ICD placement/Atrial Flutter Pt's records and hospital discharge summary reviewed in EPIC from [facility]. 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 04/13/23-Pt with collapse and cardiac arrest in [facility] while visiting family. Course included 8 mins of CPR and shock, placement of Impella CP, ECMO and extubation on 04/27. 05/01- had nose bleed that required packing by ENT and needed a blood transfusion. Had a CTA abd/pelvis that also showed a liver laceration with active bleed from the R superior epigastric artery, +blood cultures (staph capitis). 05/20- PEG tube placed for dysphagia related to intubation, pt taking only ice chips by mouth 05/24-Dual medtronic ICD placed 05/25- Discharged to acute rehab (during rehab had cardioversion for atrial flutter) 06/08- Discharged from rehab to home. Walks with walker, PT/OT/NUCLEAR LICENSING ENGINEER services at home. Coumadin was switched to Eliquis and Coreg switched to metoprolol during his hospitalizations. Lisinopril-hctz held, placed on spironolactone, torsemide and amiodarone. Holding lisinopril- hctz, continue spironolactone, torsemide and metoprolol with cardiology input on BP in setting of GI bleed. Continue amiodarone, hold aspirin and eliquis. Prostate Cancer Hx Diagnosed in 2019 Follows with urology and radiation oncology locally Diet: NPO for procedure, otherwise has PEG tube for feedings CODE STATUS: DNR/DNI DVT prophylaxis: Holding Eliquis due to acute GI bleed. SCDs and ambulation Dispo: PCU/tele Admission and Anticipated Discharge Date Admission Date: June 25, 2023 Subjective Yesterday afternoon around 5pm with bloody and black bowel movement. another episode at 8pm Transfused 1 unit RBC yesterday Otherwise no complaints Review of Systems Review of Systems: as above Physical Exam Physical Exam: No acute distress, pleasant and comfortable Respiratory: Breathing comfortably on room air, no wheezing/rhonchi Cardiovascular: Regular rate and rhythm, no murmurs/rubs Gastrointestinal (Abdomen): Soft, non tender Musculoskeletal: No edema Neurologic: awake, alert, spontaneously moving extremities, answering questions Results & Data Results & Data Vital Signs (Past 12 Hours) Vital Signs Temp Pulse Resp BP Pulse Ox O2 Del Method 06/27/23 11:40 36.9 C 75 18 127/68 96 Room Air 06/27/23 07:59 36.5 C 86 18 134/61 97 Room Air 06/27/23 03:00 36.4 C L 72 19 119/71 95 Room Air
[2023-06-27] MEDS: D5W AND NSS 1,000 ML IV SCH (17:56)
[2023-06-27] MEDS ORDERED: LAVAGE SOLUTION 4000ML PO SCH (19:00)
[2023-06-27 19:44] LABS: Hematocrit (blood only) 26.9 % (42.0-52.0); Hemoglobin 8.8 g/dl (14.0-18.0)
[2023-06-27] MEDS: ATORVASTATIN 40 MG TAB PEG SCH (21:03)
[2023-06-28] MEDS: PANTOprazole 40 MG in DEXTROSE 5% 100 ML IV SCH ×5 (01:32→21:05)
[2023-06-28] MEDS: D5W AND NSS 1,000 ML IV SCH ×3 (01:32→21:06)
[2023-06-28 08:02] LABS: Basophils # (auto) 0.05 K/uL (0-0.2); Basophils % (auto) 0.6 %; Eosinophils # (auto) 0.05 K/uL (0-0.50); Eosinophils % (auto) 0.6 %; Hemoglobin 8.5 g/dl (14.0-18.0); Immature Granulocytes # (auto) 0.04 K/uL (0.01-0.20); Immature Granulocytes % (auto) 0.5 %; Lymphocytes % (auto) 22.1 %; Mean Corpuscular Hgb Conc 32.7 g/dL (32.0-36.0); Mean Corpuscular Volume 94.9 fL (80.0-100.0); Monocytes # (auto) 0.89 K/uL (0.11-0.59); Monocytes % (auto) 10.9 %; Neutrophils % (auto) 65.3 %; Platelet Count 201 K/uL (130-400); RDW Coefficient of Variation 17.5 % (11.5-14.5); RDW Standard Deviation 60.9 fL (36.4-46.3); Red Blood Count 2.74 M/uL (4.70-6.10); White Blood Count 8.13 K/ul (4.8-10.8)
[2023-06-28 08:22] LABS: Albumin Level 3.1 gm/dl (3.4-5.0); Bilirubin,Total 0.8 mg/dl (0.2-1.0); Calcium 8.7 mg/dl (8.6-10.3); Creatinine Clr Calc Pharmacy 73.7 ml/min; Est GFR (African American) 74.1 ml/min; Est GFR (Non-African American) 63.9 ml/min; Potassium 3.4 mmol/L (3.5-5.1); Total Protein 6.1 gm/dl (6.0-8.3)
[2023-06-28] MEDS ORDERED: LIDOCAINE 2% 2 ML VIAL/AMP(20MG/ML) INFIL ONE (08:25)
[2023-06-28] MEDS ORDERED: PROPOFOL IV EMULSION 10 MG/ML 20 ML VIAL IV ONE ×5 (08:25→10:02)
--- NOTE | 2023-06-28 08:44 | History & Physical Bridge Note ---
Date of Service June 28, 2023 History & Physical Bridge Note I have examined the patient, reviewed the History & Physical, & progress notes and in the interval since the performance of the History & Physical I have noted the following changes of clinical significance: no changes noted. H/H 8.5/26.0. He completed a bowel preparation. Dark red blood was noted in his bowel movements this AM. 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 Keep NPO & proceed with EGD and colonoscopy. Supervising Physician Co-Signing Physician Notes Agree with THIERNO Lopez as above Abd: Soft, NT, ND, +BS Continue current therapy with supportive care Proceed with EGD and colonoscopy now due to acute blood loss anemia and abnormal CT scan of the abdomen/pelvis
--- NOTE | 2023-06-28 08:52 | Anesthesiology Consultation ---
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 Ryan Garcia Case, DO Height/Weight Height: 6 ft Weight: 105.9 kg Allergies Allergy/AdvReac Type Severity Reaction Status Date / Time No Known Drug Allergies Allergy Unknown . Verified 06/28/23 08:54 Medications Home Medications Medication Instructions Recorded Confirmed Last Taken aspirin 81 mg tablet,delayed 81 mg PO DAILY 05/07/20 06/25/23 Unknown release (Adult Low Dose Aspirin) carvedilol 25 mg tablet 25 mg PO BID 05/07/20 01/04/23 Unknown ezetimibe 10 mg tablet 10 mg PO DAILY 05/07/20 06/25/23 Unknown lisinopril 20 1 tab PO DAILY 05/07/20 01/04/23 Unknown mg-hydrochlorothiazide 12.5 mg tablet multivitamin 1 tab PO DAILY 05/07/20 06/25/23 Unknown omega-3 fatty acids 1,000 mg 1,000 mg PO DAILY 05/07/20 01/04/23 Unknown capsule vit 2 tab PO DAILY 05/07/20 06/25/23 Unknown [id number] 500 mg-50 mg-25 mg-40 mg tablet (Bioflex) cholecalciferol (vitamin D3) 50 50 mcg PO DAILY 12/31/20 01/04/23 Unknown mcg (2,000 unit) capsule acetaminophen 500 mg tablet 500 mg PO Q6H PRN Pain 01/04/23 06/25/23 Unknown (Tylenol Extra Strength) amiodarone 200 mg tablet 200 mg PO DAILY 06/25/23 06/25/23 Unknown apixaban 5 mg tablet (Eliquis) 5 mg PO BID 06/25/23 06/25/23 Unknown atorvastatin 80 mg tablet 80 mg PO HS 06/25/23 06/25/23 Unknown calcium carbonate 400 mg calcium 400 mg PO DAILY 06/25/23 06/25/23 Unknown (1,000 mg) chewable tablet calcium carbonate 500 mg calcium 500 mg PO DAILY 06/25/23 06/25/23 Unknown (1,250 mg) chewable tablet docusate sodium 100 mg capsule 100 mg PO BID 06/25/23 06/25/23 Unknown (Colace) metoprolol tartrate 50 mg tablet 50 mg PO QID 06/25/23 06/25/23 Unknown sennosides 8.6 mg capsule (senna) 8.6 mg PO BID PRN Constipation 06/25/23 06/25/23 Unknown sertraline 50 mg tablet 50 mg PO DAILY 06/25/23 06/25/23 Unknown sodium bicarbonate 325 mg tablet 325 mg PO DAILY 06/25/23 06/25/23 Unknown spironolactone 25 mg tablet 25 mg PO DAILY 06/25/23 06/25/23 Unknown torsemide 20 mg tablet 20 mg PO DAILY 06/25/23 06/25/23 Unknown Active Medications Generic Name Dose Route Start Last Admin Trade Name Freq PRN Reason Stop Dose Admin Amiodarone HCl 200 mg 06/27/23 09:00 06/27/23 08:50 Amiodarone 200 Mg Tab PEG 07/27/23 08:59 200 mg DAILY DESTINY Administration Atorvastatin Calcium 80 mg 06/26/23 21:00 06/27/23 21:03 Atorvastatin 40 Mg Tab PEG 07/26/23 20:59 80 mg HS DESTINY Administration Ezetimibe 10 mg 06/26/23 09:00 06/27/23 08:50 Ezetimibe 10 Mg Tablet PO 07/26/23 08:59 10 mg DAILY DESTINY Administration Pantoprazole Sodium 40 mg/ 100 mls @ 20 mls/hr 06/25/23 12:30 06/28/23 08:14 Dextrose IV 07/25/23 12:29 8 mg/hr Q5H DESTINY 20 mls/hr Administration 8 MG/HR Dextrose/Sodium Chloride 1,000 mls @ 125 mls/hr 06/27/23 17:45 06/28/23 01:32 D5w And Nss IV 07/27/23 17:44 125 mls/hr .Q8H DESTINY Administration Metoprolol Tartrate 25 mg 06/26/23 19:30 06/27/23 21:02 Metoprolol Tartrate 25 Mg Tab PEG 07/26/23 19:29 25 mg QID DESTINY Administration Polyethylene Glycol/Electrolytes 16 dose 06/27/23 19:00 06/27/23 21:04 Lavage Solution 4000ml PO 07/27/23 18:59 16 dose UD DESTINY Administration Sertraline HCl 50 mg 06/27/23 09:00 06/27/23 08:49 Sertraline Hcl 50 Mg Tablet PEG 07/27/23 08:59 50 mg DAILY DESTINY Administration Sodium Bicarbonate 325 mg 06/26/23 09:00 06/27/23 08:49 Sodium Bicarbonate 650 Mg Tab PO 07/26/23 08:59 325 mg DAILY DESTINY Administration Spironolactone 25 mg 06/27/23 09:00 06/27/23 08:50 Spironolactone 25 Mg Tab PEG 07/27/23 08:59 25 mg DAILY DESTINY Administration Torsemide 20 mg 06/26/23 09:00 06/27/23 08:49 Torsemide 20 Mg Tab PO 07/26/23 08:59 20 mg DAILY DESTINY Administration Past Medical History Medical History (Updated 06/28/23 @ 08:54 by Williams Camacho MD) Anxiety Arthritis BPH with elevated PSA Depression Elevated PSA Encounter for pre-operative examination Heart attack Hypercholesteremia Hypertension Past Family History Family History Father , 72yo Heart disease Rheumatic fever Mother , 74yo Heart disease Hypertension Anxiety Stroke Sister Breast cancer Multiple sclerosis Brother Myocardial infarction Brother Heart disease Hx of CABG Prostate cancer Brother Heart disease H/O heart artery stent Daughter No problems noted. Daughter No problems noted. Past Surgical History Surgical History H/O heart artery stent x 3 History of tonsillectomy No pertinent past surgical history S/P CABG x 2 Social History Smoking Status: Former smoker Smoking cigarettes per day: 1/2 PPD x 20 years Do You Dip or Chew Tobacco: No Smoking End Date: 1992 Hx Alcohol Use: Yes Alcohol type: beer alcohol intake frequency: holidays/special occasions only Hx Substance Use: No Physical Exam Vital Signs Last Vital Signs Temp 36.4 C L 06/28/23 08:07 Pulse 70 06/28/23 08:07 Resp 20 06/28/23 08:07 BP 122/64 06/28/23 08:07 Pulse Ox 93 06/28/23 08:07 O2 Del Method Room Air 06/28/23 08:07 Testing Laboratory Results 06/28/23 07:19 06/28/23 07:19 PT 12.3 Seconds (9.0-12.0) H 06/25/23 11:30 INR 1.1 (0.9-1.1) 06/25/23 11:30 Urine Color Yellow 06/25/23 13:45 Urine Appearance Clear (Clear) 06/25/23 13:45 Urine pH 7.5 (4.5-7.5) 06/25/23 13:45 Ur Specific [place] 1.016 (1.000-1.030) 06/25/23 13:45 Urine Protein Negative (Negative) 06/25/23 13:45 Urine Glucose (UA) Negative (Negative) 06/25/23 13:45 Urine Ketones Negative (Negative) 06/25/23 13:45 Urine Nitrite Negative (Negative) 06/25/23 13:45 Ur Leukocyte Esterase Negative (Negative) 06/25/23 13:45 Blood Type Cancelled 06/25/23 11:15 Blood Type O Positive 06/25/23 11:15 Antibody Screen Cancelled 06/25/23 11:15 Antibody Screen NEGATIVE 06/25/23 11:15 Electrocardiogram Date: 06/25/23 Blood Pressure : / mmHG Vent. Rate : 060 BPM Atrial Rate : 060 BPM P-R Int : 234 ms QRS Dur : 102 ms QT Int : 446 ms P-R-T Axes : -27 064 102 degrees QTc Int : 446 ms Atrial-paced rhythm with prolonged AV conduction Low voltage QRS Cannot rule out Anterior infarct , age undetermined T wave abnormality, consider lateral ischemia Abnormal ECG No previous ECGs available Confirmed by Akil Braun ([id number]) on 06/26/2023 10:35:19 AM Echocardiogram Date: 06/26/23 EF: 45-50 LV Function: dysfunctional RWMA: + akinetic and + hypokinetic Other Findings: + LVH (mod) and + diastolic dysfunction (grade 1) laminar apical mural thrombus.
[2023-06-28] MEDS ORDERED: ceFAZolin 330 MG/ML 1 GM VIAL ONE (09:34)
[2023-06-28] MEDS ORDERED: PHENYLEPHRINE 100MCG/ML 5ML SYR ONE (09:50)
--- NOTE | 2023-06-28 10:30 | GI REPORT ---
Patient Name: Tomer Finley Procedure Date: 06/28/2023 8:42 AM Date of : 1950 Admit Type: Inpatient Age: 72 Gender: Male Attending MD: Maximino Davis DO, Procedure: Colonoscopy Providers: Maximino Davis DO Referring MD: Harry Alvarado MD Indications: Hematochezia, Acute post hemorrhagic anemia Medicines: Monitored Anesthesia Care Complications: No immediate complications. Estimated Blood Loss: Estimated blood loss: none. Procedure: Pre-Anesthesia Assessment: - Prior to the procedure, a History and Physical was performed, and patient medications and allergies were reviewed. The patient's tolerance of previous anesthesia was also reviewed. The risks and benefits of the procedure and the sedation options and risks were discussed with the patient. All questions were answered, and informed consent was obtained. Prior Anticoagulants: The patient has taken Eliquis (apixaban), last dose was 3 days prior to procedure. ASA Grade Assessment: III - A patient with severe systemic disease. After reviewing the risks and benefits, the patient was deemed in satisfactory condition to undergo the procedure. After I obtained informed consent, the scope was passed under direct vision. Throughout the procedure, the patient's blood pressure, pulse, and oxygen saturations were monitored continuously. The Colonoscope was introduced through the anus and advanced to the terminal ileum. The colonoscopy was performed without difficulty. The patient tolerated the procedure well. The quality of the bowel preparation was good. The ileocecal valve, appendiceal orifice, and rectum were photographed. Findings: The perianal and digital rectal examinations were normal. An 8 mm polyp was found in the cecum. The polyp was sessile. The polyp was removed with a hot snare. Resection and retrieval were complete. Multiple small-mouthed diverticula were found in the sigmoid colon. Multiple ulcers were found in the rectum. Oozing was present. Area was successfully injected with 3 mL of a 0.1 mg/mL solution of epinephrine for hemostasis. Fulguration to ablate the lesion by heater probe was successful. Multiple small localized angioectasias with bleeding were found in the rectum. Fulguration to ablate the lesion by argon plasma at 0.4 liters/minute and 30 gracia was successful. Non-bleeding internal hemorrhoids were found. The hemorrhoids were small. Impression: - One 8 mm polyp in the cecum, removed with a hot snare. Resected and retrieved. - Diverticulosis in the sigmoid colon. - Multiple ulcers in the rectum. Injected. Treated with a heater probe. - Multiple bleeding colonic angioectasias. Treated with argon plasma coagulation (APC). - Non-bleeding internal hemorrhoids. Recommendation: - Return patient to hospital [facility] for ongoing care. - NPO. - Continue present medications. - Await pathology results. Maximino Davis, DO 06/28/2023 10:30:01 AM This report has been signed electronically. Note Initiated On: 06/28/2023 8:42 AM Number of Addenda: 0 I attest to the content of the Intraoperative Record and orders documented therein, exceptions below {[id number]}
--- NOTE | 2023-06-28 10:39 | GI REPORT ---
Patient Name: Tomer Finley Procedure Date: 06/28/2023 8:44 AM Date of : 1950 Admit Type: Inpatient Age: 72 Gender: Male Attending MD: Maximino Davis DO, Procedure: Upper GI endoscopy Providers: Maximino Davis DO Referring MD: Harry Alvarado MD Indications: Abnormal CT of the GI tract Medicines: Monitored Anesthesia Care, Ancef 2000 mg IV Complications: No immediate complications. Estimated Blood Loss: Estimated blood loss: none. Procedure: Pre-Anesthesia Assessment: - Prior to the procedure, a History and Physical was performed, and patient medications and allergies were reviewed. The patient's tolerance of previous anesthesia was also reviewed. The risks and benefits of the procedure and the sedation options and risks were discussed with the patient. All questions were answered, and informed consent was obtained. Prior Anticoagulants: The patient has taken Eliquis (apixaban), last dose was 3 days prior to procedure. ASA Grade Assessment: III - A patient with severe systemic disease. After reviewing the risks and benefits, the patient was deemed in satisfactory condition to undergo the procedure. After obtaining informed consent, the endoscope was passed under direct vision. Throughout the procedure, the patient's blood pressure, pulse, and oxygen saturations were monitored continuously. The Endoscope was introduced through the mouth, and advanced to the second part of duodenum. The upper GI endoscopy was accomplished without difficulty. The patient tolerated the procedure well. Findings: The esophagus was normal. There was evidence of a prior gastrostomy present in the gastric body. 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 The PEG tube was removed following placement of a PEG tube at an alternate site as detailed below. Placement of an externally removable 24f PEG with no T-fasteners was successfully completed. The external bumper was at the 4.0 cm marking on the tube. The examined duodenum was normal. Impression: - Normal esophagus. 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 - Normal examined duodenum. - An externally removable PEG placement was successfully completed. - No specimens collected. Recommendation: - Return patient to [facility] for ongoing care. - NPO. - Please follow the post-PEG recommendations including: change dressing on top of bumper daily (nothing should be placed under external bumper), may use PEG today for meds and water and clean site with soap and water daily and dry thoroughly. Maximino Davis, DO 06/28/2023 10:38:32 AM This report has been signed electronically. Note Initiated On: 06/28/2023 8:44 AM Number of Addenda: 0 I attest to the content of the Intraoperative Record and orders documented therein, exceptions below {[id number]}
--- NOTE | 2023-06-28 11:40 | Anesthesiology Progress Note ---
Date of Service June 28, 2023 Anesthesia Post Procedure Vital Signs Vital Signs: Temp Pulse Pulse Pulse Resp BP Pulse Ox 06/28/23 11:00 63 16 127/77 97 06/28/23 10:45 71 16 123/71 98 06/28/23 10:30 78 20 120/62 96 06/28/23 08:00 06/28/23 08:54 36.8 C 69 16 155/84 H 98 06/28/23 08:07 36.4 C L 70 20 122/64 93 06/28/23 08:02 72 06/28/23 04:51 153/105 H 06/28/23 03:20 36.6 C 65 14 131/74 95 06/27/23 22:45 36.5 C 60 18 133/80 99 06/27/23 19:16 36.5 C 66 18 134/77 97 06/27/23 15:32 36.7 C 62 16 124/71 97 O2 Del Method 06/28/23 11:00 Room Air 06/28/23 10:45 Room Air 06/28/23 10:30 Room Air 06/28/23 08:00 Room Air 06/28/23 08:54 Room Air 06/28/23 08:07 Room Air 06/28/23 08:02 06/28/23 04:51 06/28/23 03:20 Room Air 06/27/23 22:45 Room Air 06/27/23 19:16 Room Air 06/27/23 15:32 Room Air Transfer of Care Handoff Completed per policy Notes Mental Status: alert / awake / arousable and participated in evaluation Patient Amnestic to Procedure: Yes Nausea / Vomiting: adequately controlled Pain: adequately controlled Airway Patency, RR, SpO2: stable & adequate BP & HR: stable & adequate Hydration State: stable & adequate Anesthetic Complications: no major complications apparent
[2023-06-28] MEDS ORDERED: POLYETHYLENE (MIRALAX) 17 GM PACK PO SCH (12:00)
[2023-06-28] MEDS: METOPROLOL TARTRATE 25 MG TAB PEG SCH (12:10)
[2023-06-28] MEDS: EZETIMIBE 10 MG TABLET PO SCH (12:10)
[2023-06-28] MEDS: AMIODARONE 200 MG TAB PEG SCH (12:10)
[2023-06-28] MEDS: SPIRONOLACTONE 25 MG TAB PEG SCH (12:11)
[2023-06-28] MEDS: SERTRALINE HCL 50 MG TABLET PEG SCH (12:11)
[2023-06-28] MEDS: TORSEMIDE 20 MG TAB PO SCH (12:11)
[2023-06-28] MEDS: POTASSIUM CHLORIDE / WTR 10 MEQ/100 ML PLCT IV SCH ×2 (12:18→15:01)
[2023-06-28] MEDS ORDERED: OPTIRAY 320 100ml IV ONE (12:57)
--- NOTE | 2023-06-28 13:47 | CT Scan Report ---
CT OF THE ABDOMEN WITH CONTRAST CLINICAL HISTORY: Buried PEG bumper, recent revision COMPARISON STUDY: CT of the abdomen and pelvis June 25, 2023 and KUB June 26, 2023. TECHNIQUE: Following IV administration of 93 mL of Optiray, axial images of the abdomen were obtained from the lung bases to the proximal femurs. Images were reviewed in the axial, sagittal, and coronal planes. IV contrast was administered without complication. Automated exposure control was utilized for the study. A dose lowering technique was utilized adhering to the principles of ALARA. Oral cont rast was administered via the PEG. 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 Pacer leads are partially imaged. No pneumoperitoneum is present. Gallstones within the gallbladder are noted. The g allbladder is mildly distended. Moderate stranding is unchanged. Spleen, adrenal glands and right kid iron are normal as is the pancreas. There is a left renal cyst. There is no hydronephrosis. Trace intr ahepatic gas within the right hepatic dome is present. Interval revision of the PEG is noted. This is well positioned. There is no extraluminal contrast. There is no contrast within the previous PEG sit e. Caliber and wall thickness of visualized small and large bowel are normal. IMPRESSION: 1. Expected findings following revision PEG placement. Well-positioned PEG with no extraluminal contr ast. 2. Cholelithiasis with mild gallbladder distention and trace pericholecystic stranding. This is uncha nged. If suspicion for acute cholecystitis, a nuclear medicine hepatobiliary scan could be obtained. ACT 112: Negative or not required by law. Electronically signed by: David Kim M.D. 06/28/2023 1:45 PM
[2023-06-28] MEDS: METOPROLOL TARTRATE 1 MG/ML VIAL IV SCH ×2 (14:01→17:11)
--- NOTE | 2023-06-28 14:38 | Cardiology Progress Note ---
Date of Service June 28, 2023 Assessment & Plan (1) Cardiomyopathy: (2) Left ventricular thrombus: (3) Hx of cardiac arrest: (4) ICD (implantable cardioverter-defibrillator) in place: (5) Atrial flutter: (6) Acute blood loss anemia: (7) Painless rectal bleeding: Plan Complex 72-year-old patient presents with rectal bleeding. History of chronic apical left ventricular mural thrombus. CT scan images suggest calcified mural thrombus which appears chronic. Resting echocardiography as summarized below. Recent cardiac history significant for cardiac arrest with cardiogenic shock requiring Impella implantation, ECMO, ultimately, ICD implantation. Catheterization without intervention per patient report. Anticoagulation and antiplatelet therapy are currently on hold due to rectal bleeding and anemia. RECOMMENDATIONS: Recommend resumption of aspirin and oral anticoagulation with warfarin with IV heparin bridging when bleeding risk is deemed acceptable by the surgical and gastroenterologic services Continue cardiovascular medications including amiodarone for rhythm control, atorvastatin, Zetia, metoprolol, spironolactone, and torsemide. When able, switch metoprolol tartrate to metoprolol succinate then consider the addition of low-dose Entresto, guideline directed medical therapy for HFrEF Admission and Anticipated Discharge Date Admission Date: June 25, 2023 Supervising Physician Co-Signing Physician Notes Supervising Physician Attestation: I have personally performed a history and physical examination on the patient. I agree with the physician editorial assistant's findings and plan as documented with the following additions. Subjective: Patient subjectively without complaint at present. Tolerated EGD and PEG tube exchange well today. Exam: Cardiovascular: Regular rhythm, no murmurs, no edema Chest: Left infraclavicular ICD pocket clean dry and intact Data: Hemoglobin had been as low as 7.8, 8.8 on most recent measurement Assessment and Plan: Patient presented with bright blood red per rectum, bleeding resolved at present He has a longstanding history of LAD territory scar with left ventricular mural thrombus, that had been detected as an outpatient several years ago prompting initiation of Coumadin. In Mar, 2023 while in [facility], he suffered an out of hospital cardiac arrest. He had successful CPR, was supported with ECMO. I have reviewed the cardiac catheterization report from [facility] dated 04/15/2023. There was a 100% mid LAD lesion was chronically totally occluded. 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 Patent SVG to ramus, patent SVG to PDA. -Per my initial review of the heart catheterization report, I thought there is a suggestion of a new left main to LAD stent. But on further review, I believe the report is making reference to his previous left main and LAD stent that had been placed in [place] in 2011. -With known left main stent placed in 2011, I think it is most reasonable to resume his aspirin today. He is to remain off of anticoagulation for now given bleeding. Per review of the discharge records from his recent complex hospital stay, he had multiple bleeding issues at that time and ultimately was cautiously discharged on aspirin plus Eliquis. The Eliquis replaced his warfarin. At this time I think it is too premature to resume anticoagulation. Case reviewed with Dr. Alvarado. Rhett Romo, Subjective Patient seen and examined. Chart, medications, telemetry reviewed. Status post EGD and colonoscopy earlier today -EGD: Normal esophagus. 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 Normal examined duodenum. An externally removable PEG placement was successfully completed. -Colonoscopy: One 8 mm polyp in the cecum, removed with a hot snare. Resected and retrieved. Diverticulosis in the sigmoid colon. Multiple ulcers in the rectum. Injected. Treated with a heater probe. Multiple bleeding colonic angioectasias. Treated with argon plasma coagulation (APC). Non-bleeding internal hemorrhoids. Swallowing study scheduled to be performed tomorrow Feeling tired. Otherwise okay. No chest pain. No palpitations. No orthopnea or PND. No lower extremity peripheral edema Telemetry: Sinus in the 60s and 70s. June 26, 2023 TTE Interpretation Summary ([facility], Dr. Wynne): Mildly reduced LV systolic function. EF 45 to 50%. Moderate LVH and segments with normal wall motion. Laminar apical mural thrombus. Moderate size apical wall motion abnormality with akinesis to dyskinesis of the segments. Small size apical aneurysm. Moderately dilated left atrium. Mildly dilated aortic root. Review of Systems Review of Systems: Complete review of systems is otherwise as stated above, negative, noncontributory Physical Exam Physical Exam: General: A&Ox3. NAD. HENT: Normocephalic. Atraumatic. Eyes: PER. Conjunctiva pink, sclera clear. Neck: No carotid bruits. No JVD. Heart: RRR. No murmur. PMI is nondisplaced. Chest: Left subclavian device incision/pocket look great, without erythema or hematoma Lungs: Clear to auscultation. Abdomen: PEG tube. +BS. Soft. Nontender. Extremities: No clubbing, cyanosis, or significant edema. Limited neurological examination is without focal deficits. Pulses: radial=2/4, posterior tibial=2/4. Results & Data Vital Signs (Past 12 Hours) Vital Signs Temp Pulse Pulse Pulse Resp BP BP 06/28/23 14:01 78 119/71 06/28/23 12:09 36.2 C L 67 18 132/76 06/28/23 11:00 63 16 127/77 06/28/23 10:45 71 16 123/71 06/28/23 10:30 78 20 120/62 06/28/23 08:00 06/28/23 08:54 36.8 C 69 16 155/84 H 06/28/23 08:07 36.4 C L 70 20 122/64 06/28/23 08:02 72 06/28/23 04:51 153/105 H 06/28/23 03:20 36.6 C 65 14 131/74 Pulse Ox O2 Del Method 06/28/23 14:01 06/28/23 12:09 96 Room Air 06/28/23 11:00 97 Room Air 06/28/23 10:45 98 Room Air 06/28/23 10:30 96 Room Air 06/28/23 08:00 Room Air 06/28/23 08:54 98 Room Air 06/28/23 08:07 93 Room Air 06/28/23 08:02 06/28/23 04:51 06/28/23 03:20 95 Room Air Laboratory Results Cardiac Enzymes 06/28/23 Range/Units 07:19 AST 29 (13-39) U/L CBC 06/27/23 06/28/23 Range/Units 19:04 07:19 WBC 8.13 (4.8-10.8) K/ul RBC 2.74 L (4.70-6.10) M/uL Hgb 8.8 L 8.5 L (14.0-18.0) g/dl Hct 26.9 L 26.0 L (42.0-52.0) % Plt Count 201 (130-400) K/uL Neut # (Auto) 5.30 (1.40-6.50) K/uL Lymph # (Auto) 1.80 (1.2-3.4) K/uL [place] # (Auto) 0.89 H (0.11-0.59) K/uL Eos # (Auto) 0.05 (0-0.50) K/uL Baso # (Auto) 0.05 (0-0.2) K/uL Comprehensive Metabolic Panel 06/28/23 Range/Units 07:19 Sodium 137 (136-145) mmol/L Potassium 3.4 L (3.5-5.1) mmol/L Chloride 103 (98-107) mmol/L Carbon Dioxide 25 (21-32) mmol/L BUN 16 (6-23) mg/dl Creatinine 1.14 (0.6-1.4) mg/dl Glucose 144 H (70-99(Fasting)) mg/dl Calcium 8.7 (8.6-10.3) mg/dl AST 29 (13-39) U/L ALT 37 (7-52) U/L Alkaline Phosphatase 101 (34-104) U/L Total Protein 6.1 (6.0-8.3) gm/dl Albumin 3.1 L (3.4-5.0) gm/dl Intake and Output 06/27/23 06/28/23 06/28/23 22:59 06:59 14:59 Intake Total 189 / 1288.333 999.333 / 2289.964 4976.667 / 1084.667 Output Total 1027 / 1456 429 / 1456 Balance -838 / -167.667 570.333 / -812.640 9053.667 / 1084.667 Intake: IV 189 / 1288.333 999.333 / 8901.428 3992.667 / 1084.667 D5w and Nss 1,000 ml @ 125 mls/ 950 / 950 1000 / 1000 hr IV .Q8H [facility] Rx#:[id number] PANTOprazole 40 mg In Dextrose 189 / 338.333 49.333 / 338.333 84.667 / 84.667 5% 100 ml @ 8 MG/HR 20 mls/hr IV Q5H [facility] Rx#:[id number] Output: Urine 1025 / 1445 420 / 1445 Urine/Stool Mix # Bowel Movements Other: Other Intake Source NPO/ICE CHIPS NPO/ICE CHIPS # Unmeasured Voids 1 1 Weight 105.9 kg 105.9 kg Weight Measurement Method Standing Scale Patient Weight 06/29/23 06:59 Weight 105.9 kg
--- NOTE | 2023-06-28 18:40 | Hospitalist Progress Note ---
Date of Service June 28, 2023 Assessment & Plan (1) Painless rectal bleeding: (2) Acute blood loss anemia: (3) Prostate cancer: (4) Gallbladder anomaly: (5) Pulmonary nodule: (6) 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 BRBPR/Acute GI Bleed/Acute blood loss anemia Pt on Eliquis for Hx of atrial flutter and LV thrombus, was recently switched from Coumadin to Eliquis when he was discharged from [facility] CT abd/pelvis notes seromas in the groin bilaterally in the ED. continue PPI drip Transfused 1 unit RBC 06/26 with appropriate response Flex sig report from [facility] from 04/25/23 reviewed--showed rectal ulcer with 2 exposed vessels. 1 vessel with slow oozing and 1 clip was placed. Today had Colonoscopy and EGD with GI. Also with removal of old PEG and placement of new PEG Gallbladder changes Noted on CT abd/pelvis done on admission but patient with no symptoms and LFTs are normal. CT abd/pelvis "Cholelithiasis within a distended gallbladder. There is mild pericholecystic infiltration and findings are suspicious for acute cholecystitis. Clinical and laboratory correlation will be required. If warranted a right upper quadrant ultrasound could be considered for further assessment." Gallbladder US: "1. Distended gallbladder which contains stones and sludge. There is no definitive sonographic evidence of acute cholecystitis. The CT findings remain concerning, and if clinically warranted a nuclear hepatobiliary scan should be obtained to assess for cystic duct obstruction. 2. There is no intra or extrahepatic biliary ductal dilatation." General Surgery consulted by the ED- appreciate recs Will continue to monitor. Patient does not have pain or elevated LFTs to suggest acute cholecystitis Intraventricular thrombus at [place] CT abd/pelvis:"There is likely intraventricular thrombus at the apex seen on axial image #55.""Cardiomegaly and cardiac pacemaker. Findings are highly suspicious for intraventricular thrombus at the apex. 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 Cardiology consult- appreciate recs Hx of Cardiac Arrest s/p dual chamber Medtronic ICD placement/Atrial Flutter Coronary artery disease There was question whether patient had a stent placed to his left main and it a ppears there was a stent placed (but he was discharged on aspirin and Eliquis and not on Dual antiplatelet therapy) With his recent stent, there is concern for in stent thrombosis if he remains off aspirin for prolonged period so he will be restarted on his aspirin today per Cardiology Dysphagia Has PEG tube. Initial concern for PEG displacement based on CT findings. Small bowel follow through confirms placement and PEG cleared for use by GI. During EGD PEG bumper was noted to in fact be buried and PEG was replaced. Repeat CT A/P with contrast today. When cleared by GI to do so, will resume patient's tube feeds He has a video swallow study scheduled for tomorrow to evaluate his dysphagia further Prostate Cancer Hx Diagnosed in 2019 Follows with urology and radiation oncology locally Pulmonary Nodules CT scan notes pulmonary nodules, recommended CT scan repeat in 3 months. Diet: NPO except ice chips, Resume tube feeds when cleared by GI CODE STATUS: DNR/DNI DVT prophylaxis: Holding Eliquis due to acute GI bleed. SCDs and ambulation Dispo: PCU/tele Admission and Anticipated Discharge Date Admission Date: June 25, 2023 Subjective Went for colonoscopy and EGD today. Replacement of prior PEG tube Patient denies bloody or black BM today since coming back from his procedures Patient asking when he can resume eating ice chips (he was previously NPO except ice chips which he does to help practice his swallow) Review of Systems Review of Systems: as above Physical Exam Physical Exam: Appears stated age, no acute distress, non toxic Respiratory: Breathing comfortably on room air, no wheezing/rhonchi/rales Cardiovascular: Regular rate and rhythm, no murmurs/rubs/gallops Gastrointestinal (Abdomen): soft, non tender Musculoskeletal: No edema Neurologic: awake, alert, spontaneously moving extremities Results & Data Results & Data Vital Signs (Past 12 Hours) Vital Signs Temp Pulse Pulse Pulse Resp BP BP 06/28/23 18:07 79 120/70 06/28/23 17:11 82 122/70 06/28/23 15:49 78 118/70 06/28/23 15:09 73 06/28/23 15:08 36.4 C L 78 16 118/70 06/28/23 14:01 78 119/71 06/28/23 12:09 36.2 C L 67 18 132/76 06/28/23 11:00 63 16 127/77 06/28/23 10:45 71 16 123/71 06/28/23 10:30 78 20 120/62 06/28/23 08:00 06/28/23 08:54 36.8 C 69 16 155/84 H 06/28/23 08:07 36.4 C L 70 20 122/64 06/28/23 08:02 72 Pulse Ox O2 Del Method 06/28/23 18:07 06/28/23 17:11 06/28/23 15:49 06/28/23 15:09 06/28/23 15:08 98 Room Air 06/28/23 14:01 06/28/23 12:09 96 Room Air 06/28/23 11:00 97 Room Air 06/28/23 10:45 98 Room Air 06/28/23 10:30 96 Room Air 06/28/23 08:00 Room Air 06/28/23 08:54 98 Room Air 06/28/23 08:07 93 Room Air 06/28/23 08:02
[2023-06-28 19:34] LABS: Hematocrit (blood only) 25.8 % (42.0-52.0); Hemoglobin 8.4 g/dl (14.0-18.0)
[2023-06-28] MEDS: ASPIRIN 81 MG ECTAB PO SCH (21:41)
[2023-06-29] MEDS: METOPROLOL TARTRATE 1 MG/ML VIAL IV SCH ×5 (00:11→23:15)
[2023-06-29] MEDS: PANTOprazole 40 MG in DEXTROSE 5% 100 ML IV SCH ×5 (01:57→22:13)
[2023-06-29] MEDS: D5W AND NSS 1,000 ML IV SCH ×2 (03:03→22:47)
[2023-06-29 06:41] LABS: Hematocrit (blood only) 23.8 % (42.0-52.0); Hemoglobin 7.9 g/dl (14.0-18.0); Mean Corpuscular Hemoglobin 31.7 pg (25.0-34.0); Mean Corpuscular Hgb Conc 33.2 g/dL (32.0-36.0); Mean Corpuscular Volume 95.6 fL (80.0-100.0); Platelet Count 170 K/uL (130-400); RDW Coefficient of Variation 17.5 % (11.5-14.5); RDW Standard Deviation 60.9 fL (36.4-46.3); Red Blood Count 2.49 M/uL (4.70-6.10); White Blood Count 6.79 K/ul (4.8-10.8)
[2023-06-29 06:55] LABS: BUN Creatinine Ratio 9.3 (10-20); Calcium 8.4 mg/dl (8.6-10.3); Creatinine Clr Calc Pharmacy 98.9 ml/min; Est GFR (African American) 100.4 ml/min; Est GFR (Non-African American) 86.6 ml/min; Potassium 3.1 mmol/L (3.5-5.1)
[2023-06-29] MEDS ORDERED: POTASSIUM CHLORIDE CRTAB 20 MEQ TABCR PO STA (07:20)
[2023-06-29] MEDS: ASPIRIN 81 MG ECTAB PO SCH (08:20)
--- NOTE | 2023-06-29 10:05 | Communication Note ---
Date of Service: June 29, 2023 Patient is a 72 yo male who underwent an EGD with PEG revision/placement and colonoscopy on 06/30/23. EGD showed buried bumper syndrome. A new 24f PEG was placed. Recommendations were made yesterday on EGD report to resume meds/water via PEG on 06/28/23. Patient is to have a video swallow study today reportedly. No further restrictions regarding his PEG feedings at this time, however please note that nothing should be placed underneath the external bumper to prevent buried bumper syndrome moving forward. Colonoscopy indicated a polyp that was resected and path is pending. There were multiple rectal ulcers that were treated with heater probe/epi. H/H presently 7.9/23.8. No charted bowel movements today thus far. Would advise patient's H/H be monitored, anemia treated supportively, and tube be utilized per the recommendations above.
--- NOTE | 2023-06-29 10:41 | Gastroenterology Progress Note ---
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 -Continue with PEG utilization. -Do not place anything underneath external bumper Admission and Anticipated Discharge Date Admission Date: June 25, 2023 Supervising Physician Co-Signing Physician Notes Agree with THIERNO Lopez as above Abd: Soft, NT, ND, +BS, PEG Tube in place, Bumper at 4cm, no redness or drainage I did shorten the patient's PEG tube at his bedside. Continue current therapy and supportive care. Subjective Patient is a 72 yo male who underwent an EGD & colonoscopy on 06/28/23. EGD showed concern for buried bumper syndrome and new PEG tube was placed. The tube appears to be in good position without drainage or erythema at this time. CT abdomen noted good placement without acute concerns as well. Colonoscopy indicated a polyp that was resected. There were multiple ulcers in the rectum that appeared to be the cause of rectal bleeding. These were treated with heater probe/epi. Patient's H/H today is 7.9/23.8. No further acute concerns at this time. He notes that he has a video swallow today. Review of Systems Constitutional: no fever and no chills Respiratory: no cough and no dyspnea Cardiovascular: no chest pain Gastrointestinal: no abdominal pain Physical Exam Gastrointestinal (Abdomen): PEG appropriately placed, nothing under external bumper Musculoskeletal: Head/Neck/Chest: normocephalic Psychiatric: Orientation: alert and oriented x 3 Results & Data Results & Data Vital Signs (Past 12 Hours) Vital Signs Temp Pulse Pulse Resp BP BP Pulse Ox 06/29/23 08:02 74 06/29/23 07:51 36.9 C 71 20 145/65 H 96 06/29/23 05:51 74 06/29/23 03:06 37.1 C 79 18 113/77 95 06/29/23 01:57 76 06/29/23 00:11 77 109/63 06/29/23 00:01 37.0 C 77 16 109/63 99 O2 Del Method 06/29/23 08:02 06/29/23 07:51 Room Air 06/29/23 05:51 06/29/23 03:06 Room Air 06/29/23 01:57 06/29/23 00:11 06/29/23 00:01 Room Air PG Care Time/CCT Total # of Minutes Spent Total Time Spent with Patient: Total time spent is greater than 50% in coordination of care (as documented) at patient's floor/unit and/or counseling patient: Coding Level of Care Code 63507 SUB INP/OBS CARE 3/50MIN Diagnoses Rectal ulcer K62.6 PEG tube malfunction K94.23
--- NOTE | 2023-06-29 11:52 | Cardiology Progress Note ---
Date of Service June 29, 2023 Assessment & Plan (1) Cardiomyopathy: (2) Left ventricular thrombus: (3) Hx of cardiac arrest: (4) ICD (implantable cardioverter-defibrillator) in place: (5) Atrial flutter: (6) Acute blood loss anemia: (7) Painless rectal bleeding: Plan 72-year-old male admitted with rectal bleeding. CT with calcified chronic mural thrombus. Resting echocardiography as summarized below. Recent cardiac history significant for cardiac arrest with cardiogenic shock requiring Impella implantation, ECMO, ultimately, ICD implantation. Catheterization without intervention per patient report. Antiplatelet therapy with aspirin resumed on 06/28/2023. Anticoagulation remains on hold. RECOMMENDATIONS: Initiate Coumadin anticoagulation without heparin bridging when able from a surgical and gastroenterologic standpoint, perhaps in PM of 06/30/2023. Continue cardiovascular medications including amiodarone for rhythm control, metoprolol, torsemide, spironolactone, atorvastatin, and ezetimibe. Switch metoprolol tartrate to metoprolol succinate when able and add low-dose Entresto, guideline directed medical therapy for HFrEF Admission and Anticipated Discharge Date Admission Date: June 25, 2023 Supervising Physician Co-Signing Physician Notes Supervising Physician Attestation: I have personally performed a history and physical examination on the patient. I agree with the physician physical laboratory assistant's findings and plan as documented with the following additions. Subjective: Patient subjectively without complaint at present. Patient having lunch with mechanical soft diet including mashed potatoes today, and states it is his first solid food since 04/13/2023. Telemetry reveals sinus rhythm in the 80s Exam: Cardiovascular: Regular rhythm, no murmurs, no edema Chest: Left infraclavicular ICD pocket clean dry and intact Data: Hemoglobin: 7.9 down from 8.4 yesterday Assessment and Plan: Patient presented with bright blood red per rectum, bleeding resolved at present Source of bleeding likely rectal ulcer He has a longstanding history of LAD territory scar with left ventricular mural thrombus, that had been detected as an outpatient several years ago prompting initiation of Coumadin. In Mar, 2023 while in [facility], he suffered an out of hospital cardiac arrest. He had successful CPR, was supported with ECMO. I have reviewed the cardiac catheterization report from [facility] dated 04/15/2023. There was a 100% mid LAD lesion was chronically totally occluded. 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 Patent SVG to ramus, patent SVG to PDA. -Per my initial review of the heart catheterization report, I thought there is a suggestion of a new left main to LAD stent. But on further review, I believe the report is making reference to his previous left main and LAD stent that had been placed in [place] in 2011. -Aspirin 81 mg daily initiated 06/28/2023. -Finding reasonable from a bleeding standpoint, start Coumadin without heparin bridge. -Previously, it was felt that the apical mural thrombus had resolved on past echocardiography while on Coumadin, and we will therefore favor this agent over resuming Eliquis. Close anticoagulation clinic follow-up in [place] recommended. Rhett Romo, Subjective Patient seen and examined. Chart, medications, telemetry reviewed. Aspirin resumed on 06/28/2023. Hemoglobin 7.9 g/dL this AM Swallowing study completed earlier today. Feeling OK. No chest pain. No tachypalpitations. No orthopnea or PND. No lower extremity peripheral edema Telemetry: Sinus, currently 74 bpm. June 26, 2023 TTE Interpretation Summary ([facility], Dr. Wynne): Mildly reduced LV systolic function. EF 45 to 50%. Moderate LVH and segments with normal wall motion. Laminar apical mural thrombus. Moderate size apical wall motion abn ormality with akinesis to dyskinesis of the segments. Small size apical aneurysm. Moderately dilated left atrium. Mildly dilated aortic root. Review of Systems Review of Systems: Complete review of systems is otherwise as stated above, negative, noncontributory Physical Exam Physical Exam: General: A&Ox3. NAD. HENT: Normocephalic. Atraumatic. Eyes: PER. Conjunctiva pink, sclera clear. Neck: No JVD. Heart: RRR. No murmur. Lungs: Clear to auscultation. Abdomen: PEG tube. +BS. Soft. Nontender. Extremities: No clubbing, cyanosis, or significant edema. Limited neurological examination is without focal deficits. Pulses: Posterior tibial=2/4. Results & Data Vital Signs (Past 12 Hours) Vital Signs Temp Pulse Pulse Resp BP BP Pulse Ox 06/29/23 11:39 37.0 C 82 18 155/75 H 96 08/02/23 08:02 74 06/29/23 07:51 36.9 C 71 20 145/65 H 96 06/29/23 05:51 74 06/29/23 03:06 37.1 C 79 18 113/77 95 06/29/23 01:57 76 06/29/23 00:11 77 109/63 06/29/23 00:01 37.0 C 77 16 109/63 99 O2 Del Method 06/29/23 11:39 Room Air 06/29/23 08:02 06/29/23 07:51 Room Air 06/29/23 05:51 06/29/23 03:06 Room Air 06/29/23 01:57 06/29/23 00:11 06/29/23 00:01 Room Air Laboratory Results CBC 06/28/23 06/29/23 Range/Units 18:51 06:12 WBC 6.79 (4.8-10.8) K/ul RBC 2.49 L (4.70-6.10) M/uL Hgb 8.4 L 7.9 L (14.0-18.0) g/dl Hct 25.8 L 23.8 L (42.0-52.0) % Plt Count 170 (130-400) K/uL Comprehensive Metabolic Panel 06/29/23 Range/Units 06:12 Sodium 137 (136-145) mmol/L Potassium 3.1 L (3.5-5.1) mmol/L Chloride 108 H (98-107) mmol/L Carbon Dioxide 23 (21-32) mmol/L BUN 8 (6-23) mg/dl Creatinine 0.86 (0.6-1.4) mg/dl Glucose 120 H (70-99(Fasting)) mg/dl Calcium 8.4 L (8.6-10.3) mg/dl Intake and Output 06/28/23 06/29/23 06/29/23 22:59 06:59 14:59 Intake Total 833.333 / 3037.083 919.083 / 3037.083 85.667 / 85.667 Output Total 850 / 850 Balance 833.333 / 2187.083 69.083 / 2187.083 85.667 / 85.667 Intake: IV 833.333 / 3037.083 919.083 / 3037.083 85.667 / 85.667 D5w and Nss 1,000 ml @ 125 mls/ 633.333 / 2377.083 743.75 / 2377.083 hr IV .Q8H DESTINY Rx#:[id number] PANTOprazole 40 mg In Dextrose 100 / 460.000 175.333 / 460.000 85.667 / 85.667 5% 100 ml @ 8 MG/HR 20 mls/hr IV Q5H DESTINY Rx#:[id number] Potassium Chloride / Wtr 10 meq 100 / 200 In 100 ml @ 100 mls/hr IV Q1H DESTINY Rx#:[id number] Output: Urine 850 / 850 Other: Other Intake Source NPO/ICE CHIPS Weight 108.8 kg Weight Measurement Method Built in [facility]
[2023-06-29] MEDS ORDERED: POTASSIUM CHLORIDE CRTAB 20 MEQ TABCR PO ONE (12:00)
--- NOTE | 2023-06-29 12:20 | Fluoroscopy Report ---
MODIFIED BARIUM SWALLOW CLINICAL HISTORY: r/o aspiration COMPARISON STUDY: None. FLUOROSCOPY TIME: 2.34 minutes. Ka, r: 14.9 mGy. TECHNIQUE: A modified barium swallow was performed in conjunction with Speech Pathology. The patient ingested varying consistencies of barium containing material. Video fluoroscopy was performed. FINDINGS: No aspiration was identified with thin liquids by spoon. Several episodes of penetration we re noted. Epiglottic inversion was normal. Laryngeal elevation was normal. There was no tracheal aspi ration with nectar thick liquids or pudding consistencies. There was no aspiration with cracker and p udding consistencies. However, there was prolonged mastication with poor AP transfer. Moderate residu als within the vallecula were noted with several consistencies. IMPRESSION: 1. No tracheal aspiration identified. Penetration with several swallows of thin liquids. 2. Prolonged mastication with poor AP transfer with crackers with pudding consistency. Moderate resid uals within the vallecula with several consistencies. 3. Full recommendations by Speech pathology to follow. ACT 112: Negative or not required by law. Electronically signed by: David Kim M.D. 06/29/2023 12:18 PM
--- NOTE | 2023-06-29 15:45 | Hospitalist Progress Note ---
Date of Service June 29, 2023 Assessment & Plan (1) Painless rectal bleeding: (2) Acute blood loss anemia: (3) Prostate cancer: (4) Gallbladder anomaly: (5) Pulmonary nodule: (6) 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 BRBPR/Acute GI Bleed/Acute blood loss anemia Pt on Eliquis for Hx of atrial flutter and LV thrombus, was recently switched from Coumadin to Eliquis when he was discharged from [facility] CT abd/pelvis notes seromas in the groin bilaterally in the ED. continue PPI drip Transfused 1 unit RBC 06/26 with appropriate response Flex sig report from [facility] from 04/25/23 reviewed--showed rectal ulcer with 2 exposed vessels. 1 vessel with slow oozing and 1 clip was placed. Appreciate GI input and recommendation Status post EGD which showed buried bumper syndrome and the new PEG tube was placed and has been working well-06/28/2023 Status post colonoscopy with resection of a polyp and noted to have multiple ulcers which are treated with heater probe/PPI on 06/28/2023 Patient remains stable with hemoglobin at 7.9 today that is 06/29/23 Dysphagia Has PEG tube. Initial concern for PEG displacement based on CT findings. Small bowel follow through confirms placement and PEG cleared for use by GI. During EGD PEG bumper was noted to in fact be buried and PEG was replaced. Repeat CT A/P with contrast today. When cleared by GI to do so, will resume patient's tube feeds He has a video swallow study scheduled for tomorrow to evaluate his dysphagia further Has had fluoroscopic swallowing evaluation and the patient was started with a diet as per speech recommendation Likely to advance diet as tolerated and PEG tube extraction down the line Gallbladder changes Noted on CT abd/pelvis done on admission but patient with no symptoms and LFTs are normal. CT abd/pelvis "Cholelithiasis within a distended gallbladder. There is mild pericholecystic infiltration and findings are suspicious for acute cholecystitis. Clinical and laboratory correlation will be required. If warranted a right upper quadrant ultrasound could be considered for further assessment." Gallbladder US: "1. Distended gallbladder which contains stones and sludge. There is no definitive sonographic evidence of acute cholecystitis. The CT findings remain concerning, and if clinically warranted a nuclear hepatobiliary scan should be obtained to assess for cystic duct obstruction. 2. There is no intra or extrahepatic biliary ductal dilatation." General Surgery consulted by the ED- appreciate recs Will continue to monitor. Patient does not have pain or elevated LFTs to suggest acute cholecystitis No more symptoms suggestive of acute cholecystitis Intraventricular thrombus at [place] CT abd/pelvis:"There is likely intraventricular thrombus at the apex seen on axial image #[id number].""Cardiomegaly and cardiac pacemaker. Findings are highly suspicious for intraventricular thrombus at the apex. 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 Cardiology consult- appreciate recs-please see cardiology note for further cardiac history Aspirin and Eliquis have been started Hx of Cardiac Arrest s/p dual chamber Medtronic ICD placement/Atrial Flutter Coronary artery disease There was question whether patient had a stent placed to his left main and it appears there was a stent placed (but he was discharged on aspirin and Eliquis and not on Dual antiplatelet therapy) With his recent stent, there is concern for in stent thrombosis if he remains off aspirin for prolonged period so he will be restarted on his aspirin today per Cardiology Prostate Cancer Hx Diagnosed in 2020 Follows with urology and radiation oncology locally Pulmonary Nodules CT scan notes pulmonary nodules, recommended CT scan repeat in 3 months. Diet: NPO except ice chips, Resume tube feeds when cleared by GI CODE STATUS: DNR/DNI DVT prophylaxis: Holding Eliquis due to acute GI bleed. SCDs and ambulation Dispo: PCU/tele Admission and Anticipated Discharge Date Admission Date: June 25, 2023 Subjective 06/29/2023 The patient was seen and examined in telemetry unit He has been stable and complains to have some pain at the PEG tube insertion site Denies any chest pain, palpitation or shortness of breath He is awaiting fluoroscopic swallowing evaluation Review of Systems Review of Systems: All systems reviewed and are unremarkable except as noted below Physical Exam Physical Exam: Lying in bed comfortably Constitutional: well developed, well nourished, + ill appearing and + obese Eyes: PERRL, conjunctivae normal, anicteric sclerae ENMT: external ear and nose normal, oropharynx normal Neck: trachea midline, no thyromegaly Respiratory: no respiratory distress Auscultation: lungs clear to auscultation bilaterally; no crackles Cardiovascular: Rate/Rhythm: regular rate and regular rhythm; not tachycardic Heart Sounds: normal S1 and normal S2; no murmur Extremities: no edema Gastrointestinal (Abdomen): Inspection/Auscultation: normal bowel sounds; + abdomen abnormal to inspection (Has PEG tube in situ) and abdomen not distended Percussion/Palpation: + abdomen tender (Mildly tender around PICC insertion site) and abdomen soft Musculoskeletal: No acute arthritis involving any joint Neurologic: normal touch/pain/proprioception and moves all extremities; no focal motor deficits Psychiatric: A+Ox3, euthymic affect Lymphatic: no cervical or axillary lymphadenopathy Results & Data Results & Data Vital Signs (Past 12 Hours) Vital Signs Temp Pulse Pulse Resp BP BP Pulse Ox 06/29/23 14:18 86 121/55 L 06/29/23 12:48 85 155/75 H 06/29/23 11:39 37.0 C 82 18 155/75 H 96 06/29/23 08:02 74 06/29/23 07:51 36.9 C 71 20 145/65 H 96 06/29/23 05:51 74 O2 Del Method 06/29/23 14:18 06/29/23 12:48 06/29/23 11:39 Room Air 06/29/23 08:02 06/29/23 07:51 Room Air 06/29/23 05:51 Laboratory Results Short CBC 06/28/23 06/29/23 Range/Units 18:51 06:12 WBC 6.79 (4.8-10.8) K/ul Hgb 8.4 L 7.9 L (14.0-18.0) g/dl Hct 25.8 L 23.8 L (42.0-52.0) % Plt Count 170 (130-400) K/uL BMP 06/29/23 06:12 Sodium 137 Potassium 3.1 L Chloride 108 H Carbon Dioxide 23 BUN 8 Creatinine 0.86 Glucose 120 H Calcium 8.4 L Medications Administered Current Inpatient Medications Acetaminophen (Acetaminophen Susp 500 Mg/15.6 Ml Udp) 500 mg PEG Q6H PRN PRN Reason: pain/fever Stop: 07/26/23 19:25 Amiodarone HCl (Amiodarone 200 Mg Tab) 200 mg PEG DAILY [facility] Stop: 07/27/23 08:59 Last Admin: 06/28/23 12:10 Dose: Not Given Aspirin (Aspirin 81 Mg Ectab) 81 mg PO QAM [facility] Stop: 07/28/23 18:29 Last Admin: 06/29/23 08:20 Dose: 81 mg Atorvastatin Calcium (Atorvastatin 40 Mg Tab) 80 mg PEG HS [facility]ST[facility]Y Stop: 07/26/23 20:59 Last Admin: 06/27/23 21:03 Dose: 80 mg Ezetimibe (Ezetimibe 10 Mg Tablet) 10 mg PO DAILY DESTINY Stop: 07/26/23 08:59 Last Admin: 06/28/23 12:10 Dose: Not Given Pantoprazole Sodium 40 mg/ (Dextrose) 100 mls @ 20 mls/hr IV Q5H [facility] Stop: 07/25/23 12:29 Last Admin: 06/29/23 10:08 Dose: 8 mg/hr, 20 mls/hr Dextrose/Sodium Chloride (D5w And Nss) 1,000 mls @ 125 mls/hr IV .Q8H [facility] Stop: 07/27/23 17:44 Last Admin: 06/29/23 03:03 Dose: 125 mls/hr Metoprolol Tartrate (Metoprolol Tartrate 25 Mg Tab) 25 mg PEG QID [facility]Y Stop: 07/26/23 19:29 Last Admin: 06/28/23 12:10 Dose: Not Given Metoprolol Tartrate (Metoprolol Tartrate 1 Mg/Ml Vial) 5 mg IV Q6 [facility] Stop: 07/28/23 12:29 Last Admin: 06/29/23 12:48 Dose: 5 mg Ondansetron HCl (Ondansetron Inj 2 Mg/Ml 2 Ml Vial) 4 mg IV Q6H PRN PRN Reason: Nausea And Vomiting Stop: 07/26/23 11:41 Polyethylene Glycol (Polyethylene (Miralax) 17 Gm Pack) 17 gm PO DAILY [facility]STINY Stop: 07/28/23 11:59 Last Admin: 06/28/23 12:11 Dose: Not Given Sertraline HCl (Sertraline Hcl 50 Mg Tablet) 50 mg PEG DAILY [facility] Stop: 07/27/23 08:59 Last Admin: 06/28/23 12:11 Dose: Not Given Sodium Bicarbonate (Sodium Bicarbonate 650 Mg Tab) 325 mg PO DAILY [facility] Stop: 07/26/23 08:59 Last Admin: 06/27/23 08:49 Dose: 325 mg Spironolactone (Spironolactone 25 Mg Tab) 25 mg PEG DAILY [facility]Y Stop: 07/27/23 08:59 Last Admin: 06/28/23 12:11 Dose: Not Given Torsemide (Torsemide 20 Mg Tab) 20 mg PO DAILY [facility] Stop: 07/26/23 08:59 Last Admin: 06/28/23 12:11 Dose: Not Given
[2023-06-30] MEDS: PANTOprazole 40 MG in DEXTROSE 5% 100 ML IV SCH ×6 (03:23→23:42)
[2023-06-30] MEDS: METOPROLOL TARTRATE 1 MG/ML VIAL IV SCH ×4 (06:31→23:41)
[2023-06-30 07:16] LABS: Basophils # (auto) 0.04 K/uL (0-0.2); Basophils % (auto) 0.6 %; Eosinophils # (auto) 0.06 K/uL (0-0.50); Eosinophils % (auto) 0.9 %; Hematocrit (blood only) 25.5 % (42.0-52.0); Hemoglobin 8.1 g/dl (14.0-18.0); Immature Granulocytes # (auto) 0.03 K/uL (0.01-0.20); Immature Granulocytes % (auto) 0.4 %; Lymphocytes # (auto) 1.54 K/uL (1.2-3.4); Lymphocytes % (auto) 22.9 %; Mean Corpuscular Hemoglobin 30.8 pg (25.0-34.0); Mean Corpuscular Hgb Conc 31.8 g/dL (32.0-36.0); Mean Platelet Volume 9.1 fL (9.4-12.4); Monocytes # (auto) 1.04 K/uL (0.11-0.59); Monocytes % (auto) 15.5 %; Neutrophils # (auto) 4.01 K/uL (1.40-6.50); Neutrophils % (auto) 59.7 %; Platelet Count 175 K/uL (130-400); RDW Coefficient of Variation 17.5 % (11.5-14.5); RDW Standard Deviation 61.9 fL (36.4-46.3); Red Blood Count 2.63 M/uL (4.70-6.10); White Blood Count 6.72 K/ul (4.8-10.8)
[2023-06-30 07:26] LABS: BUN Creatinine Ratio 11.4 (10-20); Calcium 8.7 mg/dl (8.6-10.3); Creatinine Clr Calc Pharmacy 106.7 ml/min; Est GFR (Non-African American) 89.7 ml/min; Magnesium 1.9 mg/dl (1.7-2.4); Potassium 3.6 mmol/L (3.5-5.1)
[2023-06-30] MEDS: ASPIRIN 81 MG ECTAB PO SCH (08:41)
--- NOTE | 2023-06-30 12:43 | Cardiology Progress Note ---
Date of Service June 30, 2023 Assessment & Plan (1) Cardiomyopathy: (2) Left ventricular thrombus: (3) Hx of cardiac arrest: (4) ICD (implantable cardioverter-defibrillator) in place: (5) Atrial flutter: (6) Acute blood loss anemia: (7) Painless rectal bleeding: Plan 72-year-old male admitted with rectal bleeding. CT with calcified chronic mural thrombus. Resting echocardiography as summarized below. Recent cardiac history significant for cardiac arrest with cardiogenic shock requiring Impella implantation, ECMO, ultimately, ICD implantation. Catheterization without intervention. Antiplatelet therapy with aspirin resumed on 06/28/2023. Anticoagulation remains on hold. Patient with ? rigors this AM, afebrile. RECOMMENDATIONS: Check PA and lateral CXR, blood and urine cultures. Continue cardiovascular medications including amiodarone for rhythm control, metoprolol, torsemide, spironolactone, atorvastatin, and ezetimibe. Switch metoprolol tartrate to metoprolol succinate when able and add low-dose Entresto, guideline directed medical therapy for HFrEF. Initiate Coumadin anticoagulation without heparin bridging when able from a GI standpoint. Admission and Anticipated Discharge Date Admission Date: June 25, 2023 Supervising Physician Co-Signing Physician Notes Patient seen examined the bedside. Previously noted rigors/tremor has resolved. No documented fever. Cultures drawn. Denies chest pain or shortness of breath. PE: VSS. Gen: NAD, AAOx3. Heart: Regular rhythm, normal S1-S2. No murmur. Jair gs: Clear bilateral, no rales, rhonchi, wheeze. Extremities: No edema. A/P: Agree with above PA-C history, physical exam, assessment and plan. Evaluation of possible infectious process given physical exam findings of rigors earlier today. Cultures pending. Continue current cardiovascular occasions including amiodarone, metoprolol, torsemide, spironolactone, atorvastatin, and Zetia. Restart oral anticoagulation with Coumadin. Currently transitioning from Eliquis to Coumadin due to evidence of LV apical thrombus on echocardiogram. Subjective Patient seen and examined. Chart, medications, telemetry reviewed.+ Chills this AM. Afebrile. No diaphoresis. No chest pain. No palpitations. No cough or increased shortness of breath. Telemetry: Sinus, 60-80 bpm. June 26, 2023 TTE Interpretation Summary ([facility], Dr. Wynne): Mildly reduced LV systolic function. EF 45 to 50%. Moderate LVH and segments with normal wall motion. Laminar apical mural thrombus. Moderate size apical wall motion abnormality with akinesis to dyskinesis of the segments. Small size apical aneurysm. Moderately dilated left atrium. Mildly dilated aortic root. Review of Systems Review of Systems: Complete review of systems is otherwise as stated above, negative, noncontributory Physical Exam Physical Exam: General: A&Ox3. +Tremor versus rigors. HENT: Normocephalic. Atraumatic. Eyes: PER. Conjunctiva pink, sclera clear. Neck: No JVD. Heart: RRR. No murmur. Lungs: Clear to auscultation. Abdomen: PEG tube. +BS. Soft. Nontender. Extremities: Minimal edema. No clubbing. No cyanosis Limited neurological examination is without focal deficits. Pulses: Posterior tibial=2/4. Results & Data Vital Signs (Past 12 Hours) Vital Signs Temp Pulse Pulse Resp BP BP Pulse Ox 06/30/23 10:23 36.4 C L 92 H 23 137/85 96 06/30/23 09:00 68 06/30/23 07:38 36.8 C 66 18 131/77 99 06/30/23 06:46 71 134/76 06/30/23 06:31 76 149/78 H O2 Del Method 06/30/23 10:23 Room Air 06/30/23 09:00 06/30/23 07:38 Room Air 06/30/23 06:46 06/30/23 06:31 Laboratory Results CBC 06/30/23 Range/Units 06:33 WBC 6.72 (4.8-10.8) K/ul RBC 2.63 L (4.70-6.10) M/uL Hgb 8.1 L (14.0-18.0) g/dl Hct 25.5 L (42.0-52.0) % Plt Count 175 (130-400) K/uL Neut # (Auto) 4.01 (1.40-6.50) K/uL Lymph # (Auto) 1.54 (1.2-3.4) K/uL Bradley # (Auto) 1.04 H (0.11-0.59) K/uL Eos # (Auto) 0.06 (0-0.50) K/uL Baso # (Auto) 0.04 (0-0.2) K/uL Comprehensive Metabolic Panel 06/30/23 Range/Units 06:33 Sodium 138 (136-145) mmol/L Potassium 3.6 (3.5-5.1) mmol/L Chloride 108 H (98-107) mmol/L Carbon Dioxide 23 (21-32) mmol/L BUN 9 (6-23) mg/dl Creatinine 0.79 (0.6-1.4) mg/dl Glucose 97 (70-99(Fasting)) mg/dl Calcium 8.7 (8.6-10.3) mg/dl Intake and Output 06/29/23 06/30/23 06/30/23 22:59 06:59 14:59 Intake Total 1560 / 1745.667 100 / 1745.667 100 / 100 Output Total 100 / 1625 1525 / 1625 175 / 175 Balance 1460 / 120.667 -1425 / 120.667 -75 / -75 Intake: IV 1200 / 1385.667 100 / 1385.667 100 / 100 D5w and Nss 1,000 ml @ 125 mls/ 1000 / 1000 hr IV .Q8H [facility] Rx#:[id number] PANTOprazole 40 mg In Dextrose 200 / 385.667 100 / 385.667 100 / 100 5% 100 ml @ 8 MG/HR 20 mls/hr IV Q5H DESTINY Rx#:[id number] Oral 360 / 360 Output: Urine 100 / 1625 1525 / 1625 175 / 175 Other: Weight 106.7 kg Weight Measurement Method Built in [facility]
--- NOTE | 2023-06-30 13:47 | XRay Report ---
TWO VIEW CHEST CLINICAL HISTORY: Chills. FINDINGS: AP and lateral chest radiographs are compared to study dated 08/27/2010. The patient is stat us post midline sternotomy. A 2-lead cardiac AICD partially obscures left upper chest. The heart is e nlarged noting atherosclerotic calcification of the thoracic aorta. The pulmonary vasculature is nonc ongested. Chronic interstitial thickening is similar to previous. There is chronic elevation of the r ight hemidiaphragm with bibasilar scarring/atelectasis. No airspace consolidation or large pleural ef fusion is identified. There is no pneumothorax. The skeletal structures are osteopenic. The bony thor ax appears intact. Enteric contrast is seen within the bowel in the lateral projection. Arthritic dakota nge is noted in the shoulders. IMPRESSION: 1. Cardiomegaly and AICD without radiographic evidence of congestive failure. 2. No airspace elevation or large pleural effusion is identified. ACT 112: Negative or not required by law. Electronically signed by: Prakash Foster M.D. 06/30/2023 1:46 PM
--- NOTE | 2023-06-30 16:40 | Hospitalist Progress Note ---
Date of Service June 30, 2023 Assessment & Plan (1) Painless rectal bleeding: (2) Acute blood loss anemia: (3) Prostate cancer: (4) Gallbladder anomaly: (5) Pulmonary nodule: (6) 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 BRBPR/Acute GI Bleed/Acute blood loss anemia Pt on Eliquis for Hx of atrial flutter and LV thrombus, was recently switched from Coumadin to Eliquis when he was discharged from [facility] CT abd/pelvis notes seromas in the groin bilaterally in the ED. continue PPI drip Transfused 1 unit RBC 06/26 with appropriate response Flex sig report from [facility] from 04/25/23 reviewed--showed rectal ulcer with 2 exposed vessels. 1 vessel with slow oozing and 1 clip was placed. Appreciate GI input and recommendation Status post EGD which showed buried bumper syndrome and the new PEG tube was placed and has been working well-06/28/2023 Status post colonoscopy with resection of a polyp and noted to have multiple ulcers which are treated with heater probe/PPI on 06/28/2023 Patient remains stable with hemoglobin at 7.9 today that is 06/29/23 Hemoglobin remains stable and no more evidence of bleeding Dysphagia Has PEG tube. Initial concern for PEG displacement based on CT findings. Small bowel follow through confirms placement and PEG cleared for use by GI. During EGD PEG bumper was noted to in fact be buried and PEG was replaced. Repeat CT A/P with contrast today. When cleared by GI to do so, will resume patient's tube feeds He has a video swallow study scheduled for tomorrow to evaluate his dysphagia further Has had fluoroscopic swallowing evaluation and the patient was started with a diet as per speech recommendation Likely to advance diet as tolerated and PEG tube extraction down the line He has been tolerating regular diet and he does not want to use the PEG tube and wants it to be discontinued Discussed with the GI for further recommendation with the PEG tube and when that can be taken out He denies any symptoms with the food Gallbladder changes Noted on CT abd/pelvis done on admission but patient with no symptoms and LFTs are normal. CT abd/pelvis "Cholelithiasis within a distended gallbladder. There is mild pericholecystic infiltration and findings are suspicious for acute cholecystitis. Clinical and laboratory correlation will be required. If warranted a right upper quadrant ultrasound could be considered for further assessment." Gallbladder US: "1. Distended gallbladder which contains stones and sludge. There is no definitive sonographic evidence of acute cholecystitis. The CT findings remain concerning, and if clinically warranted a nuclear hepatobiliary scan should be obtained to assess for cystic duct obstruction. 2. There is no intra or extrahepatic biliary ductal dilatation." General Surgery consulted by the ED- appreciate recs Will continue to monitor. Patient does not have pain or elevated LFTs to suggest acute cholecystitis No more symptoms suggestive of acute cholecystitis Intraventricular thrombus at [facility] CT abd/pelvis:"There is likely intraventricular thrombus at the apex seen on axial image #[id number].""Cardiomegaly and cardiac pacemaker. Findings are highly suspicious for intraventricular thrombus at the apex. 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 Cardiology consult- appreciate recs-please see cardiology note for further cardiac history Aspirin and Eliquis have been started Hx of Cardiac Arrest s/p dual chamber Medtronic ICD placement/Atrial Flutter Coronary artery disease There was question whether patient had a stent placed to his left main and it appears there was a stent placed (but he was discharged on aspirin and Eliquis and not on Dual antiplatelet therapy) With his recent stent, there is concern for in stent thrombosis if he remains off aspirin for prolonged period so he will be restarted on his aspirin today per Cardiology Denies any more cardiac symptoms Prostate Cancer Hx Diagnosed in 2020 Follows with urology and radiation oncology locally Pulmonary Nodules CT scan notes pulmonary nodules, recommended CT scan repeat in 3 months. Diet: NPO except ice chips, Resume tube feeds when cleared by GI CODE STATUS: DNR/DNI DVT prophylaxis: Holding Eliquis due to acute GI bleed. SCDs and ambulation Dispo: PCU/tele Likely discharge tomorrow Admission and Anticipated Discharge Date Admission Date: June 25, 2023 Subjective 06/29/2023 The patient was seen and examined in telemetry unit He has been stable and complains to have some pain at the PEG tube insertion site Denies any chest pain, palpitation or shortness of breath He is awaiting fluoroscopic swallowing evaluation 06/30/2023 The patient was seen and examined in telemetry unit He has been feeling much better and is happy that he has been able to eat and drink normally Does not want to use the PEG tube and wants this to be discontinued Denies any other acute symptoms Has been getting physical therapy Review of Systems Review of Systems: All systems reviewed and are unremarkable except as noted below Physical Exam Physical Exam: Sitting on a chair without any acute distress Constitutional: well developed, well nourished, + ill appearing and + obese Eyes: PERRL, conjunctivae normal, anicteric sclerae ENMT: external ear and nose normal, oropharynx normal Neck: trachea midline, no thyromegaly Respiratory: no respiratory distress Auscultation: lungs clear to auscultation bilaterally; no crackles Cardiovascular: Rate/Rhythm: regular rate and regular rhythm; not tachycardic Heart Sounds: normal S1 and normal S2; no murmur Extremities: no edema Gastrointestinal (Abdomen): Inspection/Auscultation: normal bowel sounds; + abdomen abnormal to inspection (Has PEG tube in situ) and abdomen not distended Percussion/Palpation: + abdomen tender (Mildly tender around PICC insertion site) and abdomen soft Musculoskeletal: No acute arthritis involving any of the joint Neurologic: normal touch/pain/proprioception and moves all extremities; no focal motor deficits Psychiatric: A+Ox3, euthymic affect Lymphatic: no cervical or axillary lymphadenopathy Results & Data Results & Data Vital Signs (Past 12 Hours) Vital Signs Temp Pulse Pulse Resp BP BP Pulse Ox 06/30/23 15:47 36.8 C 104 H 20 130/74 95 06/30/23 14:08 114 H 148/80 H 06/30/23 12:51 36.8 C 06/30/23 10:23 36.4 C L 92 H 23 137/85 96 06/30/23 09:00 68 06/30/23 07:38 36.8 C 66 18 131/77 99 06/30/23 06:46 71 134/76 06/30/23 06:31 76 149/78 H O2 Del Method 06/30/23 15:47 Room Air 06/30/23 14:08 06/30/23 12:51 06/30/23 10:23 Room Air 06/30/23 09:00 06/30/23 07:38 Room Air 06/30/23 06:46 06/30/23 06:31 Laboratory Results Short CBC 06/30/23 Range/Units 06:33 WBC 6.72 (4.8-10.8) K/ul Hgb 8.1 L (14.0-18.0) g/dl Hct 25.5 L (42.0-52.0) % Plt Count 175 (130-400) K/uL BMP 06/30/23 06:33 Sodium 138 Potassium 3.6 Chloride 108 H Carbon Dioxide 23 BUN 9 Creatinine 0.79 Glucose 97 Calcium 8.7 Medications Administered Current Inpatient Medications Acetaminophen (Acetaminophen Susp 500 Mg/15.6 Ml Udp) 500 mg PEG Q6H PRN PRN Reason: pain/fever Stop: 07/26/23 19:25 Amiodarone HCl (Amiodarone 200 Mg Tab) 200 mg PEG DAILY DESTINY Stop: 07/27/23 08:59 Last Admin: 06/28/23 12:10 Dose: Not Given Aspirin (Aspirin 81 Mg Ectab) 81 mg PO QAM DESTINY Stop: 07/28/23 18:29 Last Admin: 06/30/23 08:41 Dose: 81 mg Atorvastatin Calcium (Atorvastatin 40 Mg Tab) 80 mg PEG HS DESTINY Stop: 07/26/23 20:59 Last Admin: 06/27/23 21:03 Dose: 80 mg Ezetimibe (Ezetimibe 10 Mg Tablet) 10 mg PO DAILY DESTINY Stop: 07/26/23 08:59 Last Admin: 06/28/23 12:10 Dose: Not Given Pantoprazole Sodium 40 mg/ (Dextrose) 100 mls @ 20 mls/hr IV Q5H DESTINY Stop: 07/25/23 12:29 Last Admin: 06/30/23 14:08 Dose: 8 mg/hr, 20 mls/hr Metoprolol Tartrate (Metoprolol Tartrate 25 Mg Tab) 25 mg PEG QID DESTINY Stop: 07/26/23 19:29 Last Admin: 06/28/23 12:10 Dose: Not Given Metoprolol Tartrate (Metoprolol Tartrate 1 Mg/Ml Vial) 5 mg IV Q6 DESTINY Stop: 07/28/23 12:29 Last Admin: 06/30/23 14:08 Dose: 5 mg Ondansetron HCl (Ondansetron Inj 2 Mg/Ml 2 Ml Vial) 4 mg IV Q6H PRN PRN Reason: Nausea And Vomiting Stop: 07/26/23 11:41 Polyethylene Glycol (Polyethylene (Miralax) 17 Gm Pack) 17 gm PO DAILY [facility] Stop: 07/28/23 11:59 Last Admin: 06/28/23 12:11 Dose: Not Given Sertraline HCl (Sertraline Hcl 50 Mg Tablet) 50 mg PEG DAILY [facility] Stop: 07/27/23 08:59 Last Admin: 06/28/23 12:11 Dose: Not Given Sodium Bicarbonate (Sodium Bicarbonate 650 Mg Tab) 325 mg PO DAILY [facility] Stop: 07/26/23 08:59 Last Admin: 06/27/23 08:49 Dose: 325 mg Spironolactone (Spironolactone 25 Mg Tab) 25 mg PEG DAILY [facility] Stop: 07/27/23 08:59 Last Admin: 06/28/23 12:11 Dose: Not Given Torsemide (Torsemide 20 Mg Tab) 20 mg PO DAILY [facility] Stop: 07/26/23 08:59 Last Admin: 06/28/23 12:11 Dose: Not Given
[2023-06-30] MEDS: MELATONIN 3 MG TAB PO PRN (23:51)
[2023-07-01] MEDS: PANTOprazole 40 MG in DEXTROSE 5% 100 ML IV SCH ×4 (04:49→20:42)
[2023-07-01] MEDS: METOPROLOL TARTRATE 1 MG/ML VIAL IV SCH ×2 (06:25→12:07)
[2023-07-01 06:55] LABS: Calcium 8.6 mg/dl (8.6-10.3); Creatinine Clr Calc Pharmacy 94.4 ml/min; Est GFR (Non-African American) 82.8 ml/min; Magnesium 1.8 mg/dl (1.7-2.4); Potassium 3.8 mmol/L (3.5-5.1)
[2023-07-01 07:42] LABS: Basophils # (auto) 0.04 K/uL (0-0.2); Basophils % (auto) 0.3 %; Eosinophils # (auto) 0.04 K/uL (0-0.50); Eosinophils % (auto) 0.3 %; Hematocrit (blood only) 24.3 % (42.0-52.0); Hemoglobin 7.8 g/dl (14.0-18.0); Immature Granulocytes # (auto) 0.06 K/uL (0.01-0.20); Immature Granulocytes % (auto) 0.5 %; Lymphocytes # (auto) 1.96 K/uL (1.2-3.4); Lymphocytes % (auto) 15.2 %; Mean Corpuscular Hgb Conc 32.1 g/dL (32.0-36.0); Mean Corpuscular Volume 96.4 fL (80.0-100.0); Mean Platelet Volume 9.8 fL (9.4-12.4); Monocytes # (auto) 1.57 K/uL (0.11-0.59); Monocytes % (auto) 12.2 %; Neutrophils # (auto) 9.19 K/uL (1.40-6.50); Neutrophils % (auto) 71.5 %; Platelet Count 193 K/uL (130-400); Platelet Estimate Normal (Normal); Polychromasia 1+; RDW Coefficient of Variation 17.2 % (11.5-14.5); RDW Standard Deviation 60.8 fL (36.4-46.3); Red Blood Count 2.52 M/uL (4.70-6.10); White Blood Count 12.86 K/ul (4.8-10.8)
--- NOTE | 2023-07-01 09:08 | Communication Note ---
Date of Service: July 01, 2023 Per hospitalist, patient passed video swallow and can take food by mouth. Patient inquired when he can have PEG tube removed. Advise that tube should be left in place for 6-8 weeks before pulling. As for patient's anticoagulation, note that from a GI perspective he continues to be at a high risk for re-bleeding.
[2023-07-01] MEDS: ASPIRIN 81 MG ECTAB PO SCH (09:21)
--- NOTE | 2023-07-01 10:53 | Cardiology Progress Note ---
Date of Service July 01, 2023 Assessment & Plan (1) Cardiomyopathy: (2) Left ventricular thrombus: (3) Hx of cardiac arrest: (4) ICD (implantable cardioverter-defibrillator) in place: (5) Atrial flutter: (6) Acute blood loss anemia: (7) Painless rectal bleeding: Plan 72-year-old male admitted with rectal bleeding. CT with calcified chronic mural thrombus. Resting echocardiography as summarized below. Recent cardiac history significant for cardiac arrest with cardiogenic shock requiring Impella implantation, ECMO, ultimately, ICD implantation. Catheterization without intervention. Antiplatelet therapy with aspirin resumed on 06/28/2023. Anticoagulation remains on hold with GI noting "he continues to be at a high risk for re-bleeding." Continue cardiovascular medications including amiodarone for rhythm control, metoprolol, torsemide, spironolactone, atorvastatin, and ezetimibe. Consider low-dose Entresto down the road, RE: HFrEF. Risks and benefits of resuming anticoagulation as well as continuing without anticoagulation discussed. For now, he will remain off of anticoagulation. Recommend periodically reassessing the risks/benefits. Admission and Anticipated Discharge Date Admission Date: June 25, 2023 Supervising Physician Co-Signing Physician Notes Patient seen examined the bedside. Denies chest pain or shortness of breath. No signs of recurrent GI bleeding. Denies chest pain or shortness of breath. present at bedside. PE: VSS. Gen: NAD, AAOx3. Heart: Regular rhythm, normal S1-S2. No murmur. Lungs: Clear bilateral, no rales, rhonchi, wheeze. Extremities: No edema. A/P: Agree with above PA-C history, physical exam, assessment and plan. Discontinue IV Lopressor. Restart oral metoprolol, and amiodarone. Continue low-dose aspirin. Transition from Eliquis to warfarin when bleeding risk is deemed acceptable by the gastroenterology service. Monitor daily H&H. Subjective Patient seen and examined. Chart, medications, telemetry reviewed.Feeling OK. Anxious to return home. No chest pain, palpitations, chest congestion, increased shortness of breath, fevers, or chills. Telemetry: Sinus at 80 bpm. June 26, 2023 TTE Interpretation Summary ([facility], Dr. Wynne): Mildly reduced LV systolic function. EF 45 to 50%. Moderate LVH and segments with normal wall motion. Laminar apical mural thrombus. Moderate size apical wall motion abnormality with akinesis to dyskinesis of the segments. Small size apical aneurysm. Moderately dilated left atrium. Mildly dilated aortic root. Review of Systems Review of Systems: Complete review of systems is otherwise as stated above, negative, noncontributory Physical Exam Physical Exam: General: A&Ox3. HENT: Normocephalic. Atraumatic. Eyes: PER. Conjunctiva pink, sclera clear. Neck: No JVD. Heart: RRR. No murmur. Lungs: Clear to auscultation. Abdomen: PEG tube. +BS. Soft. Nontender. Extremities: No edema. No clubbing. No cyanosis Limited neurological examination is without focal deficits. Pulses: Posterior tibial=2/4. Results & Data Vital Signs (Past 12 Hours) Vital Signs Temp Pulse Pulse Resp BP BP Pulse Ox 07/01/23 10:49 36.3 C L 79 20 131/68 96 07/01/23 07:07 36.3 C L 76 19 119/62 95 07/01/23 06:41 70 07/01/23 06:25 84 114/65 07/01/23 05:58 84 18 114/65 98 07/01/23 03:24 36.4 C L 74 22 122/72 96 07/01/23 00:07 81 06/30/23 23:54 92 H 06/30/23 23:41 84 123/71 06/30/23 23:25 37.2 C 84 22 123/71 98 O2 Del Method 07/01/23 10:49 Room Air 07/01/23 07:07 Room Air 07/01/23 06:41 07/01/23 06:25 07/01/23 05:58 Room Air 07/01/23 03:24 Room Air 07/01/23 00:07 06/30/23 23:54 06/30/23 23:41 06/30/23 23:25 Room Air Laboratory Results CBC 07/01/23 Range/Units 05:46 WBC 12.86 H (4.8-10.8) K/ul RBC 2.52 L (4.70-6.10) M/uL Hgb 7.8 L (14.0-18.0) g/dl Hct 24.3 L (42.0-52.0) % Plt Count 193 (130-400) K/uL Neut # (Auto) 9.19 H (1.40-6.50) K/uL Lymph # (Auto) 1.96 (1.2-3.4) K/uL Iron # (Auto) 1.57 H (0.11-0.59) K/uL Eos # (Auto) 0.04 (0-0.50) K/uL Baso # (Auto) 0.04 (0-0.2) K/uL Comprehensive Metabolic Panel 07/01/23 Range/Units 05:46 Sodium 132 L (136-145) mmol/L Potassium 3.8 (3.5-5.1) mmol/L Chloride 104 (98-107) mmol/L Carbon Dioxide 22 (21-32) mmol/L BUN 12 (6-23) mg/dl Creatinine 0.92 (0.6-1.4) mg/dl Glucose 115 H (70-99(Fasting)) mg/dl Calcium 8.6 (8.6-10.3) mg/dl Intake and Output 06/30/23 07/01/23 07/01/23 22:59 06:59 14:59 Intake Total 89.333 / 1139.333 200 / 1139.333 100 / 100 Output Total 1150 / 1425 Balance 89.333 / -285.667 -950 / -285.667 100 / 100 Intake: IV 89.333 / 489.333 200 / 489.333 100 / 100 PANTOprazole 40 mg In Dextrose 89.333 / 489.333 200 / 489.333 100 / 100 5% 100 ml @ 8 MG/HR 20 mls/hr IV Q5H DESTINY Rx#:[id number] Output: Urine 1150 / 1425 Other: Other Intake Source sips # Unmeasured Voids 1 Weight 106.7 kg 113.5 kg Weight Measurement Method Built in [facility]
[2023-07-01] MEDS ORDERED: AMIODARONE 200 MG TAB PO SCH (15:00)
--- NOTE | 2023-07-01 15:21 | Hospitalist Progress Note ---
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 BRBPR/Acute GI Bleed/Acute blood loss anemia Pt on Eliquis for Hx of atrial flutter and LV thrombus, was recently switched from Coumadin to Eliquis when he was discharged from [facility] CT abd/pelvis notes seromas in the groin bilaterally in the ED. continue PPI drip Transfused 1 unit RBC 06/26 with appropriate response Flex sig report from [facility] from 04/25/23 reviewed--showed rectal ulcer with 2 exposed vessels. 1 vessel with slow oozing and 1 clip was placed. Appreciate GI input and recommendation Status post EGD which showed buried bumper syndrome and the new PEG tube was placed and has been working well-06/28/2023 Status post colonoscopy with resection of a polyp and noted to have multiple ulcers which are treated with heater probe/PPI on 06/28/2023 Patient remains stable with hemoglobin at 7.9 today that is 06/29/23 Hemoglobin remains stable and no more evidence of bleeding No more bleeding and the hemoglobin remains stable Dysphagia Has PEG tube. Initial concern for PEG displacement based on CT findings. Small bowel follow through confirms placement and PEG cleared for use by GI. During EGD PEG bumper was noted to in fact be buried and PEG was replaced. Repeat CT A/P with contrast today. When cleared by GI to do so, will resume patient's tube feeds He has a video swallow study scheduled for tomorrow to evaluate his dysphagia further Has had fluoroscopic swallowing evaluation and the patient was started with a diet as per speech recommendation Likely to advance diet as tolerated and PEG tube extraction down the line He has been tolerating regular diet and he does not want to use the PEG tube and wants it to be discontinued Discussed with the GI for further recommendation with the PEG tube and when that can be taken out He denies any symptoms with the food Has been tolerating regular meals orally Discussed with the GI and the PEG tube can be taken out after about 6 to 8 weeks The patient does not want to use PEG tube feeding but that will need to be flushed every so often to keep it free from clogging and infection Gallbladder changes Noted on CT abd/pelvis done on admission but patient with no symptoms and LFTs are normal. CT abd/pelvis "Cholelithiasis within a distended gallbladder. There is mild pericholecystic infiltration and findings are suspicious for acute cholecystitis. Clinical and laboratory correlation will be required. If warranted a right upper quadrant ultrasound could be considered for further assessment." Gallbladder US: "1. Distended gallbladder which contains stones and sludge. There is no definitive sonographic evidence of acute cholecystitis. The CT findings remain concerning, and if clinically warranted a nuclear hepatobiliary scan should be obtained to assess for cystic duct obstruction. 2. There is no intra or extrahepatic biliary ductal dilatation." General Surgery consulted by the ED- appreciate recs Will continue to monitor. Patient does not have pain or elevated LFTs to suggest acute cholecystitis No more symptoms suggestive of acute cholecystitis Intraventricular thrombus at [place] CT abd/pelvis:"There is likely intraventricular thrombus at the apex seen on axial image #55.""Cardiomegaly and cardiac pacemaker. Findings are highly suspicious for intraventricular thrombus at the apex. 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 Cardiology consult- appreciate recs-please see cardiology note for further cardiac history Aspirin and Eliquis have been started Has been on aspirin and anticoagulation has not been started yet due to high risk of bleeding Discussed with the cardiology and GI Not to start Coumadin at this time and will assess risk and benefit down the line Hx of Cardiac Arrest s/p dual chamber Medtronic ICD placement/Atrial Flutter Coronary artery disease There was question whether patient had a stent placed to his left main and it appears there was a stent placed (but he was discharged on aspirin and Eliquis and not on Dual antiplatelet therapy) With his recent stent, there is concern for in stent thrombosis if he remains off aspirin for prolonged period so he will be restarted on his aspirin today per Cardiology Denies any more cardiac symptoms Cardiac medicines have been restarted Prostate Cancer Hx Diagnosed in 2019 Follows with urology and radiation oncology locally Pulmonary Nodules CT scan notes pulmonary nodules, recommended CT scan repeat in 3 months. Diet: NPO except ice chips, Resume tube feeds when cleared by GI CODE STATUS: DNR/DNI DVT prophylaxis: Holding Eliquis due to acute GI bleed. SCDs and ambulation Dispo: PCU/tele Likely discharge tomorrow Admission and Anticipated Discharge Date Admission Date: June 25, 2023 Subjective 06/29/2023 The patient was seen and examined in telemetry unit He has been stable and complains to have some pain at the PEG tube insertion site Denies any chest pain, palpitation or shortness of breath He is awaiting fluoroscopic swallowing evaluation 06/30/2023 The patient was seen and examined in telemetry unit He has been feeling much better and is happy that he has been able to eat and drink normally Does not want to use the PEG tube and wants this to be discontinued Denies any other acute symptoms Has been getting physical therapy 07/01/2023 The patient was seen and examined in telemetry unit He has been feeling much better and denies any significant symptoms Has been tolerating regular diet He does not want to use the PEG tube feeding Review of Systems Review of Systems: All systems reviewed and are unremarkable except as noted below Physical Exam Physical Exam: Sitting on a chair without any acute distress Constitutional: well developed, well nourished, + ill appearing and + obese Eyes: PERRL, conjunctivae normal, anicteric sclerae ENMT: external ear and nose normal, oropharynx normal Neck: trachea midline, no thyromegaly Respiratory: no respiratory distress Auscultation: lungs clear to auscultation bilaterally; no crackles Cardiovascular: Rate/Rhythm: regular rate and regular rhythm; not tachycardic Heart Sounds: normal S1 and normal S2; no murmur Extremities: no edema Gastrointestinal (Abdomen): Inspection/Auscultation: normal bowel sounds; + abdomen abnormal to inspection (Has PEG tube in situ) and abdomen not distended Percussion/Palpation: + abdomen tender (Mildly tender around PICC insertion site) and abdomen soft Neurologic: normal touch/pain/proprioception and moves all extremities; no focal motor deficits Psychiatric: A+Ox3, euthymic affect Lymphatic: no cervical or axillary lymphadenopathy Results & Data Results & Data Vital Signs (Past 12 Hours) Vital Signs Temp Pulse Pulse Resp BP BP Pulse Ox 07/01/23 12:50 78 125/76 07/01/23 08:00 07/01/23 12:07 82 132/77 07/01/23 10:49 36.3 C L 79 20 131/68 96 07/01/23 07:07 36.3 C L 76 19 119/62 95 07/01/23 06:41 70 07/01/23 06:25 84 114/65 07/01/23 05:58 84 18 114/65 98 07/01/23 03:24 36.4 C L 74 22 122/72 96 O2 Del Method 07/01/23 12:50 07/01/23 08:00 Room Air 07/01/23 12:07 07/01/23 10:49 Room Air 07/01/23 07:07 Room Air 07/01/23 06:41 07/01/23 06:25 07/01/23 05:58 Room Air 07/01/23 03:24 Room Air Laboratory Results Short CBC 07/01/23 Range/Units 05:46 WBC 12.86 H (4.8-10.8) K/ul Hgb 7.8 L (14.0-18.0) g/dl Hct 24.3 L (42.0-52.0) % Plt Count 193 (130-400) K/uL BMP 07/01/23 05:46 Sodium 132 L Potassium 3.8 Chloride 104 Carbon Dioxide 22 BUN 12 Creatinine 0.92 Glucose 115 H Calcium 8.6 Medications Administered Current Inpatient Medications Acetaminophen (Acetaminophen Susp 500 Mg/15.6 Ml Udp) 500 mg PEG Q6H PRN PRN Reason: pain/fever Stop: 07/26/23 19:25 Amiodarone HCl (Amiodarone 200 Mg Tab) 200 mg PO DAILY [facility] Stop: 07/31/23 14:59 Aspirin (Aspirin 81 Mg Ectab) 81 mg PO QAM [facility] Stop: 07/28/23 18:29 Last Admin: 07/01/23 09:21 Dose: 81 mg Atorvastatin Calcium (Atorvastatin 40 Mg Tab) 80 mg PO HS [facility] Stop: 07/31/23 20:59 Ezetimibe (Ezetimibe 10 Mg Tablet) 10 mg PO DAILY [facility] Stop: 07/26/23 08:59 Last Admin: 06/28/23 12:10 Dose: Not Given Pantoprazole Sodium 40 mg/ (Dextrose) 100 mls @ 20 mls/hr IV Q5H [facility] Stop: 07/25/23 12:29 Last Admin: 07/01/23 10:23 Dose: 8 mg/hr, 20 mls/hr Melatonin (Melatonin 3 Mg Tab) 3 mg PO HS PRN PRN Reason: Sleep Stop: 07/30/23 23:36 Last Admin: 06/30/23 23:51 Dose: 3 mg Metoprolol Tartrate (Metoprolol Tartrate 1 Mg/Ml Vial) 5 mg IV Q6 [facility] Stop: 07/28/23 12:29 Last Admin: 07/01/23 12:07 Dose: 5 mg Metoprolol Tartrate (Metoprolol Tartrate 25 Mg Tab) 25 mg PO QID [facility] Stop: 07/31/23 14:59 Ondansetron HCl (Ondansetron Inj 2 Mg/Ml 2 Ml Vial) 4 mg IV Q6H PRN PRN Reason: Nausea And Vomiting Stop: 07/26/23 11:41 Polyethylene Glycol (Polyethylene (Miralax) 17 Gm Pack) 17 gm PO DAILY [facility] Stop: 07/28/23 11:59 Last Admin: 06/28/23 12:11 Dose: Not Given Sertraline HCl (Sertraline Hcl 50 Mg Tablet) 50 mg PEG DAILY [facility] Stop: 07/27/23 08:59 Last Admin: 06/28/23 12:11 Dose: Not Given Sodium Bicarbonate (Sodium Bicarbonate 650 Mg Tab) 325 mg PO DAILY [facility] Stop: 07/26/23 08:59 Last Admin: 06/27/23 08:49 Dose: 325 mg Spironolactone (Spironolactone 25 Mg Tab) 25 mg PEG DAILY [facility] Stop: 07/27/23 08:59 Last Admin: 06/28/23 12:11 Dose: Not Given Torsemide (Torsemide 20 Mg Tab) 20 mg PO DAILY [facility] Stop: 07/26/23 08:59 Last Admin: 06/28/23 12:11 Dose: Not Given
[2023-07-01] MEDS: METOPROLOL TARTRATE 25 MG TAB PO SCH ×2 (19:08→20:37)
[2023-07-01] MEDS: MELATONIN 3 MG TAB PO PRN (20:46)
[2023-07-01] MEDS ORDERED: ATORVASTATIN 40 MG TAB PO SCH (21:00)
[2023-07-02] MEDS: PANTOprazole 40 MG in DEXTROSE 5% 100 ML IV SCH ×3 (01:18→09:23)
[2023-07-02 08:00] LABS: Basophils # (auto) 0.03 K/uL (0-0.2); Basophils % (auto) 0.3 %; Eosinophils # (auto) 0.09 K/uL (0-0.50); Eosinophils % (auto) 0.9 %; Hematocrit (blood only) 23.4 % (42.0-52.0); Hemoglobin 7.6 g/dl (14.0-18.0); Immature Granulocytes # (auto) 0.07 K/uL (0.01-0.20); Immature Granulocytes % (auto) 0.7 %; Lymphocytes # (auto) 1.72 K/uL (1.2-3.4); Lymphocytes % (auto) 16.3 %; Mean Corpuscular Hemoglobin 30.4 pg (25.0-34.0); Mean Corpuscular Hgb Conc 32.5 g/dL (32.0-36.0); Mean Corpuscular Volume 93.6 fL (80.0-100.0); Mean Platelet Volume 9.3 fL (9.4-12.4); Monocytes # (auto) 1.17 K/uL (0.11-0.59); Monocytes % (auto) 11.1 %; Neutrophils # (auto) 7.44 K/uL (1.40-6.50); Neutrophils % (auto) 70.7 %; Platelet Count 172 K/uL (130-400); RDW Coefficient of Variation 16.4 % (11.5-14.5); RDW Standard Deviation 55.8 fL (36.4-46.3); White Blood Count 10.52 K/ul (4.8-10.8)
[2023-07-02 08:17] LABS: BUN Creatinine Ratio 15.8 (10-20); Calcium 8.5 mg/dl (8.6-10.3); Creatinine Clr Calc Pharmacy 114.4 ml/min; Est GFR (African American) 105.6 ml/min; Est GFR (Non-African American) 91.1 ml/min; Magnesium 1.8 mg/dl (1.7-2.4); Potassium 3.2 mmol/L (3.5-5.1)
[2023-07-02 08:38] LABS: RBC Morphology Unremarkable
[2023-07-02] MEDS: ASPIRIN 81 MG ECTAB PO SCH (08:52)
[2023-07-02] MEDS: TORSEMIDE 20 MG TAB PO SCH (08:53)
[2023-07-02] MEDS: EZETIMIBE 10 MG TABLET PO SCH (08:53)
[2023-07-02] MEDS: SPIRONOLACTONE 25 MG TAB PEG SCH (08:53)
[2023-07-02] MEDS: METOPROLOL TARTRATE 25 MG TAB PO SCH ×3 (08:53→17:06)
[2023-07-02] MEDS ORDERED: POTASSIUM CHLORIDE CRTAB 20 MEQ TABCR PO ONE (09:04)
[2023-07-02] MEDS ORDERED: SODIUM CHLORIDE 0.9% 250 ML IV PRN (09:29)
[2023-07-02] MEDS: SERTRALINE HCL 50 MG TABLET PEG SCH (09:30)
--- NOTE | 2023-07-02 10:08 | Hospitalist Progress Note ---
Date of Service July 02, 2023 Assessment & Plan (1) Painless rectal bleeding: (2) Acute blood loss anemia: (3) Prostate cancer: (4) Gallbladder anomaly: (5) Pulmonary nodule: (6) 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 BRBPR/Acute GI Bleed/Acute blood loss anemia Pt on Eliquis for Hx of atrial flutter and LV thrombus, was recently switched from Coumadin to Eliquis when he was discharged from [facility] CT abd/pelvis notes seromas in the groin bilaterally in the ED. continue PPI drip Transfused 1 unit RBC 06/26 with appropriate response Flex sig report from [facility] from 04/25/23 reviewed--showed rectal ulcer with 2 exposed vessels. 1 vessel with slow oozing and 1 clip was placed. Appreciate GI input and recommendation Status post EGD which showed buried bumper syndrome and the new PEG tube was placed and has been working well-06/28/2023 Status post colonoscopy with resection of a polyp and noted to have multiple ulcers which are treated with heater probe/PPI on 06/28/2023 Patient remains stable with hemoglobin at 7.9 today that is 06/29/23 Hemoglobin remains stable and no more evidence of bleeding Has had brown color bowel movement today Hemoglobin went down to 7.6 as of 07/02/2023 Given the cardiac history we will give you 1 unit of blood transfusion today before discharging home Dysphagia Has PEG tube. Initial concern for PEG displacement based on CT findings. Small bowel follow through confirms placement and PEG cleared for use by GI. During EGD PEG bumper was noted to in fact be buried and PEG was replaced. Repeat CT A/P with contrast today. When cleared by GI to do so, will resume patient's tube feeds He has a video swallow study scheduled for tomorrow to evaluate his dysphagia further Has had fluoroscopic swallowing evaluation and the patient was started with a diet as per speech recommendation Likely to advance diet as tolerated and PEG tube extraction down the line He has been tolerating regular diet and he does not want to use the PEG tube and wants it to be discontinued Discussed with the GI for further recommendation with the PEG tube and when that can be taken out He denies any symptoms with the food Has been tolerating regular meals orally Discussed with the GI and the PEG tube can be taken out after about 6 to 8 weeks The patient does not want to use PEG tube feeding but that will need to be flushed every so often to keep it free from clogging and infection Has been tolerating oral diet Gallbladder changes Noted on CT abd/pelvis done on admission but patient with no symptoms and LFTs are normal. CT abd/pelvis "Cholelithiasis within a distended gallbladder. There is mild pericholecystic infiltration and findings are suspicious for acute cholecystitis. Clinical and laboratory correlation will be required. If warranted a right upper quadrant ultrasound could be considered for further assessment." Gallbladder US: "1. Distended gallbladder which contains stones and sludge. Ther e is no definitive sonographic evidence of acute cholecystitis. The CT findings remain concerning, and if clinically warranted a nuclear hepatobiliary scan should be obtained to assess for cystic duct obstruction. 2. There is no intra or extrahepatic biliary ductal dilatation." General Surgery consulted by the ED- appreciate recs Will continue to monitor. Patient does not have pain or elevated LFTs to suggest acute cholecystitis No more symptoms suggestive of acute cholecystitis Intraventricular thrombus at [place] CT abd/pelvis:"There is likely intraventricular thrombus at the apex seen on axial image #55.""Cardiomegaly and cardiac pacemaker. Findings are highly suspicious for intraventricular thrombus at the apex. 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 Cardiology consult- appreciate recs-please see cardiology note for further cardiac history Aspirin and Eliquis have been started Has been on aspirin and anticoagulation has not been started yet due to high risk of bleeding Discussed with the cardiology and GI Not to start Coumadin at this time and will assess risk and benefit down the line Discussed with the patient about anticoagulation which will not be started on discharge Hx of Cardiac Arrest s/p dual chamber Medtronic ICD placement/Atrial Flutter Coronary artery disease There was question whether patient had a stent placed to his left main and it appears there was a stent placed (but he was discharged on aspirin and Eliquis and not on Dual antiplatelet therapy) With his recent stent, there is concern for in stent thrombosis if he remains off aspirin for prolonged period so he will be restarted on his aspirin today per Cardiology Denies any more cardiac symptoms Cardiac medicines have been restarted No cardiac symptoms and remains hemodynamically stable to be discharged Prostate Cancer Hx Diagnosed in 2019 Follows with urology and radiation oncology locally Pulmonary Nodules CT scan notes pulmonary nodules, recommended CT scan repeat in 3 months. Diet: NPO except ice chips, Resume tube feeds when cleared by GI CODE STATUS: DNR/DNI DVT prophylaxis: Holding Eliquis due to acute GI bleed. SCDs and ambulation Dispo: PCU/tele Likely discharge this afternoon Admission and Anticipated Discharge Date Admission Date: June 25, 2023 Subjective 06/29/2023 The patient was seen and examined in telemetry unit He has been stable and complains to have some pain at the PEG tube insertion site Denies any chest pain, palpitation or shortness of breath He is awaiting fluoroscopic swallowing evaluation 06/30/2023 The patient was seen and examined in telemetry unit He has been feeling much better and is happy that he has been able to eat and drink normally Does not want to use the PEG tube and wants this to be discontinued Denies any other acute symptoms Has been getting physical therapy 07/01/2023 The patient was seen and examined in telemetry unit He has been feeling much better and denies any significant symptoms Has been tolerating regular diet He does not want to use the PEG tube feeding 07/02/2023 The patient was seen and examined in telemetry unit He has been stable and denies any significant symptoms No more bleeding per rectum and hemoglobin is slightly down at 7.6 today He denies any palpitation, chest pain or shortness of breath Has been ambulating without any difficulties Review of Systems Review of Systems: All systems reviewed and are unremarkable except as noted below Physical Exam Physical Exam: Lying in bed comfortably Constitutional: well developed, well nourished, + ill appearing and + obese Eyes: PERRL, conjunctivae normal, anicteric sclerae ENMT: external ear and nose normal, oropharynx normal Neck: trachea midline, no thyromegaly Respiratory: no respiratory distress Auscultation: lungs clear to auscultation bilaterally; no crackles Cardiovascular: Rate/Rhythm: regular rate and regular rhythm; not tachycardic Heart Sounds: normal S1 and normal S2; no murmur Extremities: no edema Gastrointestinal (Abdomen): Inspection/Auscultation: normal bowel sounds; + abdomen abnormal to inspection (Has PEG tube in situ) and abdomen not distended Percussion/Palpation: + abdomen tender (Mildly tender around PICC insertion site) and abdomen soft Musculoskeletal: No acute arthritis involving any joint. Right upper extremity specially the arm is swollen likely secondary to IV line used on that side. Neurologic: normal touch/pain/proprioception and moves all extremities; no focal motor deficits Psychiatric: A+Ox3, euthymic affect Lymphatic: no cervical or axillary lymphadenopathy Results & Data Results & Data Vital Signs (Past 12 Hours) Vital Signs Temp Pulse Pulse Resp BP Pulse Ox O2 Del Method 07/02/23 07:01 37.0 C 95 H 19 118/72 94 Room Air 07/02/23 03:07 36.7 C 87 18 117/64 91 Room Air 07/01/23 23:15 37.0 C 83 18 122/69 94 Room Air 07/01/23 23:14 82 Laboratory Results Short CBC 07/02/23 Range/Units 07:21 WBC 10.52 (4.8-10.8) K/ul Hgb 7.6 L (14.0-18.0) g/dl Hct 23.4 L (42.0-52.0) % Plt Count 172 (130-400) K/uL BMP 07/02/23 07:21 Sodium 132 L Potassium 3.2 L Chloride 102 Carbon Dioxide 22 BUN 12 Creatinine 0.76 Glucose 99 Calcium 8.5 L Medications Administered Current Inpatient Medications Acetaminophen (Acetaminophen Susp 500 Mg/15.6 Ml Udp) 500 mg PEG Q6H PRN PRN Reason: pain/fever Stop: 07/26/23 19:25 Amiodarone HCl (Amiodarone 200 Mg Tab) 200 mg PO DAILY [facility] Stop: 07/31/23 14:59 Last Admin: 07/02/23 08:53 Dose: 200 mg Aspirin (Aspirin 81 Mg Ectab) 81 mg PO QAM [facility] Stop: 07/28/23 18:29 Last Admin: 07/02/23 08:52 Dose: 81 mg Atorvastatin Calcium (Atorvastatin 40 Mg Tab) 80 mg PO HS [facility] Stop: 07/31/23 20:59 Last Admin: 07/01/23 21:40 Dose: 80 mg Ezetimibe (Ezetimibe 10 Mg Tablet) 10 mg PO DAILY [facility] Stop: 07/26/23 08:59 Last Admin: 07/02/23 08:53 Dose: 10 mg Pantoprazole Sodium 40 mg/ (Dextrose) 100 mls @ 20 mls/hr IV Q5H [facility] Stop: 07/25/23 12:29 Last Admin: 07/02/23 09:23 Dose: Not Given Sodium Chloride (Nss) 250 mls @ 15 mls/hr IV .[id number] PRN PRN Reason: For Transfusion Duration Stop: 07/02/23 19:30 Melatonin (Melatonin 3 Mg Tab) 3 mg PO HS PRN PRN Reason: Sleep Stop: 07/30/23 23:36 Last Admin: 07/01/23 20:46 Dose: 3 mg Metoprolol Tartrate (Metoprolol Tartrate 1 Mg/Ml Vial) 5 mg IV Q6 [facility] Stop: 07/28/23 12:29 Last Admin: 07/01/23 12:07 Dose: 5 mg Metoprolol Tartrate (Metoprolol Tartrate 25 Mg Tab) 25 mg PO QID [facility] Stop: 07/31/23 14:59 Last Admin: 07/02/23 08:53 Dose: 25 mg Ondansetron HCl (Ondansetron Inj 2 Mg/Ml 2 Ml Vial) 4 mg IV Q6H PRN PRN Reason: Nausea And Vomiting Stop: 07/26/23 11:41 Polyethylene Glycol (Polyethylene (Miralax) 17 Gm Pack) 17 gm PO DAILY [facility] Stop: 07/28/23 11:59 Last Admin: 06/28/23 12:11 Dose: Not Given Sertraline HCl (Sertraline Hcl 50 Mg Tablet) 50 mg PEG DAILY [facility] Stop: 07/27/23 08:59 Last Admin: 07/02/23 09:30 Dose: 50 mg Sodium Bicarbonate (Sodium Bicarbonate 650 Mg Tab) 325 mg PO DAILY [facility] Stop: 07/26/23 08:59 Last Admin: 06/27/23 08:49 Dose: 325 mg Spironolactone (Spironolactone 25 Mg Tab) 25 mg PEG DAILY [facility] Stop: 07/27/23 08:59 Last Admin: 07/02/23 08:53 Dose: 25 mg Torsemide (Torsemide 20 Mg Tab) 20 mg PO DAILY [facility] Stop: 07/26/23 08:59 Last Admin: 07/02/23 08:53 Dose: 20 mg
--- NOTE | 2023-07-02 11:15 | Cardiology Progress Note ---
Date of Service July 02, 2023 Assessment & Plan (1) Cardiomyopathy: (2) Left ventricular thrombus: (3) Hx of cardiac arrest: (4) ICD (implantable cardioverter-defibrillator) in place: (5) Atrial flutter: (6) Painless rectal bleeding: Plan Complex 72 year old male with history of remote left ventricular apical aneurysm patch repair 1992, CABG x2, and drug-eluting stent placement x2, longstanding history of calcified chronic LV mural thrombus, history of atrial flutter. In March 2023 patient suffered a cardiac arrest with cardiogenic shock requiring Impella implantation, ECMO, ultimately, ICD implantation on 05/24/2023.Catheterization at that time without need for intervention. EF mildly impaired at 40-45%. Patient admitted to [facility] on 06/25/2023 with rectal bleeding status post colonoscopy intervention on 06/28/2023 - multiple ulcers in the rectum treated with a heater probe and multiple bleeding colonic angioectasias treated with argon plasma coagulation. Antiplatelet therapy with aspirin resumed on 06/28/2023. Via shared decision making, Coumadin anticoagulation will remain on hold as patient is high risk for re-bleeding from a GI standpoint. Cardiovascular medications including amiodarone for rhythm control, metoprolol, torsemide, spironolactone, atorvastatin, and ezetimibe should be continued as prescribed. Outpatient consideration should be made for initiation of Entresto, RE: HFrEF. Recommend close outpatient cardiology follow-up with primary interactive marketing strategist, Dr. Romo. Admission and Anticipated Discharge Date Admission Date: June 25, 2023 Supervising Physician Co-Signing Physician Notes Attending Staff: Patient seen and evaluated with [facility] staff. Concur with observations and plans. 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 * Please hold DOAC * May reconsider DOAC as an outpt * Continue ASA 81 mg po per day * Consideration for DAPT was made, however, ASA monotherapy was selected given the age of the BASIA (12+ years) and the need for transfusion. * Plasn to transfuse PRBCs on 07/02/2023 * Continue Lipitor 80 mg po per day * Continue Zetia 10 mg po per day * LDL 60 in 2011 * Recheck LDL as an outpt * Pt just passed a swallow test * PEG tube in place * GDMT - * Consider D/C Lopressor * Consider Starting Toprol XL 50 mg po per day * Consider Entresto 24/26 mg po BID as an outpt * Pt appears euvolemic - transition to Torsemide 20 mg po per day * + afib hx * Continue Amiodarone 200 mg po per day * Plans to f/u with Dr Romo at [facility] Subjective Events overnight: None reported Patient seen and examined. Chart, medications, telemetry reviewed. No complaints of chest pain or dyspnea Telemetry: no significant alarms reported Review of Systems Review of Systems: Complete Review of Systems is as stated above, negative, or noncontributory. Physical Exam Physical Exam: Examined in bed at 30-40 degrees General: A&Ox3. NAD. HENT: Normocephalic. Atraumatic. Eyes: PER. Conjunctiva pink, sclera clear. Neck: Normal JVP. Heart: RRR. Lungs: Clear. Abdomen: PEG tube. +BS. Extremities: Stasis changes. No edema. No clubbing. No cyanosis Limited neurological examination is without focal deficits. Results & Data Vital Signs (Past 12 Hours) Vital Signs Temp Pulse Pulse Resp BP Pulse Ox O2 Del Method 07/02/23 10:49 36.7 C 86 19 125/68 94 Room Air 07/02/23 08:00 90 07/02/23 07:01 37.0 C 95 H 19 118/72 94 Room Air 07/02/23 03:07 36.7 C 87 18 117/64 91 Room Air 07/01/23 23:15 37.0 C 83 18 122/69 94 Room Air 07/01/23 23:14 82 Laboratory Results CBC 07/02/23 Range/Units 07:21 WBC 10.52 (4.8-10.8) K/ul RBC 2.50 L (4.70-6.10) M/uL Hgb 7.6 L (14.0-18.0) g/dl Hct 23.4 L (42.0-52.0) % Plt Count 172 (130-400) K/uL Neut # (Auto) 7.44 H (1.40-6.50) K/uL Lymph # (Auto) 1.72 (1.2-3.4) K/uL [place] # (Auto) 1.17 H (0.11-0.59) K/uL Eos # (Auto) 0.09 (0-0.50) K/uL Baso # (Auto) 0.03 (0-0.2) K/uL Comprehensive Metabolic Panel 07/02/23 Range/Units 07:21 Sodium 132 L (136-145) mmol/L Potassium 3.2 L (3.5-5.1) mmol/L Chloride 102 (98-107) mmol/L Carbon Dioxide 22 (21-32) mmol/L BUN 12 (6-23) mg/dl Creatinine 0.76 (0.6-1.4) mg/dl Glucose 99 (70-99(Fasting)) mg/dl Calcium 8.5 L (8.6-10.3) mg/dl Intake and Output 07/01/23 07/02/23 07/02/23 22:59 06:59 14:59 Intake Total 187.667 / 1133.000 485.333 / 1133.000 Output Total 350 / 1550 650 / 1550 Balance -162.333 / -417.000 -164.667 / -417.000 Intake: IV 187.667 / 473.000 185.333 / 473.000 PANTOprazole 40 mg In Dextrose 187.667 / 473.000 185.333 / 473.000 5% 100 ml @ 8 MG/HR 20 mls/hr IV Q5H [facility] Rx#:[id number] Oral 300 / 660 Output: Urine 350 / 1550 650 / 1550 Other: Weight 113.8 kg Weight Measurement Method Built in [facility] Diagnostic Findings ECHOcardiogram: 07/01/2023 * Mildly reduced LV systolic function. * EF 45 to 50%. * Moderate LVH and segments with normal wall motion. * Laminar apical mural thrombus. * Moderate size apical wall motion abnormality with akinesis to dyskinesis of the segments. * Small size apical aneurysm. * Moderately dilated left atrium. * Mildly dilated aortic root.
[2023-07-02 13:37] VITALS: O2SAT 95
[2023-07-02 15:53] VITALS: TEMP 97.7
[2023-07-02 15:58] VITALS: BP 125/68; PULSE 69
[2023-07-02 16:18] LABS: Hemoglobin 8.3 g/dl (14.0-18.0)
--- NOTE | 2023-07-03 08:52 | Discharge Summary ---
Date of Service July 03, 2023 Admission HPI Per Admitting Provider Pt is 72yoM with PMHx significant for prostate cancer, atrial flutter currently on Eliquis and cardiac arrest (March 2023) s/p dual chamber Medtronic ICD placement and PEG placement for dysphagia related to intubation presenting with a GI bleed. present at bedside and also provides some of the history. States that he has been having occasional bleeding per rectum for the past few months, but has been more copious with bowel movements over the last 4-5 days. States the toilet bowl is filled with blood and he has noted stains ranging from brown to bright red on the sheets when he gets up in the morning. Currently on Eliquis, notes he was previously on coumadin for a Hx of atrial flutter. Notes a Hx of an MN many years ago and placement of a "patch" on the apex of his heart. also tells of his hospitalization for 5 weeks in the ICU after going into cardiac arrest in [facility] while visiting family. States that he had ECMO done there and was placed on a ventilator, got dysphagia from that after ex tubation and had to have a PEG tube placed. Follows with cardiology and states that his braille transcriber is Dr. Romo. Vitals stable in the ED with hgb of 9.7 on admission. Admission Exam Per Admitting Provider Physical Exam: General: Alert, oriented. No acute distress Skin: No noted rashes or bruises Psych: Appropriate mood and affect Neuro: No gross deficits observed while laying in bed HEENT: NC/AT CV: RRR, Blowing murmur appreciated Resp: Breath sounds clear bilaterally, no increased effort of breathing. Abdomen: Soft, nontender, PEG tube in place Extremities: edema in lower extremities bilaterally. Principal Diagnosis Rectal bleed, rectal ulcers, history of prostate cancer, history of cardiac arrest status post dual-chamber Medtronic ICD placement, PEG tube status, Passed Speech and eating normally Discharge Exam Lying in bed comfortably Constitutional well developed, well nourished, + ill appearing and + obese Eyes PERRL, conjunctivae normal, anicteric sclerae ENMT external ear and nose normal, oropharynx normal Neck trachea midline, no thyromegaly Respiratory no respiratory distress Auscultation: lungs clear to auscultation bilaterally; no crackles Cardiovascular Rate/Rhythm: regular rate and regular rhythm; not tachycardic Heart Sounds: normal S1 and normal S2; no murmur Extremities: no edema Gastrointestinal (Abdomen) Inspection/Auscultation: normal bowel sounds; + abdomen abnormal to inspection (Has PEG tube in situ) and abdomen not distended Percussion/Palpation: + abdomen tender (Mildly tender around PICC insertion site) and abdomen soft Neurologic normal touch/pain/proprioception and moves all extremities; no focal motor deficits Psychiatric A+Ox3, euthymic affect Lymphatic no cervical or axillary lymphadenopathy Discharge Data Allergies Allergy/AdvReac Type Severity Reaction Status Date / Time No Known Drug Allergies Allergy Unknown . Verified 06/28/23 08:54 Consultations 06/25/23 13:31 Consult General Surgery Routine 06/25/23 14:06 ED Decision to Admit Stat 06/25/23 14:44 Consult Cardiology Routine Consult Gastroenterology Routine 06/27/23 18:37 Consult Anesthesiology Routine Procedures Performed Operation Date: 06/28/23 16:30 Actual Procedures p Esophagogastroduodenoscopy - Maximino Garcia Case, DO s Peg Tube Placement Dr Davis - Maximino Garcia Case, DO s Colonoscopy Polypectomy - Maximino Garcia Case, DO Ordered Studies 06/25/23 11:33 CT Abd and Pelvis [CT abd pelvis IV con only] Stat 06/25/23 13:24 US gallbladder Stat 06/28/23 11:39 CT abdomen oral and IV con Urgent 06/29/23 11:00 FL video swallow Routine Hospital Course (1) Painless rectal bleeding: (2) Acute blood loss anemia: (3) Prostate cancer: (4) Gallbladder anomaly: (5) Pulmonary nodule: (6) 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 BRBPR/Acute GI Bleed/Acute blood loss anemia Pt on Eliquis for Hx of atrial flutter and LV thrombus, was recently switched from Coumadin to Eliquis when he was discharged from [facility] CT abd/pelvis notes seromas in the groin bilaterally in the ED. continue PPI drip Transfused 1 unit RBC 06/26 with appropriate response Flex sig report from [facility] from 04/25/23 reviewed--showed rectal ulcer with 2 exposed vessels. 1 vessel with slow oozing and 1 clip was placed. Appreciate GI input and recommendation Status post EGD which showed buried bumper syndrome and the new PEG tube was placed and has been working well-06/28/2023 Status post colonoscopy with resection of a polyp and noted to have multiple ulcers which are treated with heater probe/PPI on 06/28/2023 Patient remains stable with hemoglobin at 7.9 today that is 06/29/23 Hemoglobin remains stable and no more evidence of bleeding Has had brown color bowel movement today Hemoglobin went down to 7.6 as of 07/02/2023 Given the cardiac history we will give you 1 unit of blood transfusion today before discharging home Dysphagia Has PEG tube. Initial concern for PEG displacement based on CT findings. Small bowel follow through confirms placement and PEG cleared for use by GI. During EGD PEG bumper was noted to in fact be buried and PEG was replaced. Repeat CT A/P with contrast today. When cleared by GI to do so, will resume patient's tube feeds He has a video swallow study scheduled for tomorrow to evaluate his dysphagia further Has had fluoroscopic swallowing evaluation and the patient was started with a diet as per speech recommendation Likely to advance diet as tolerated and PEG tube extraction down the line He has been tolerating regular diet and he does not want to use the PEG tube and wants it to be discontinued Discussed with the GI for further recommendation with the PEG tube and when that can be taken out He denies any symptoms with the food Has been tolerating regular meals orally Discussed with the GI and the PEG tube can be taken out after about 6 to 8 weeks The patient does not want to use PEG tube feeding but that will need to be flushed every so often to keep it free from clogging and infection Has been tolerating oral diet Gallbladder changes Noted on CT abd/pelvis done on admission but patient with no symptoms and LFTs are normal. CT abd/pelvis "Cholelithiasis within a distended gallbladder. There is mild pericholecystic infiltration and findings are suspicious for acute cholecystitis. Clinical and laboratory correlation will be required. If warranted a right upper quadrant ultrasound could be considered for further assessment." Gallbladder US: "1. Distended gallbladder which contains stones and sludge. There is no definitive sonographic evidence of acute cholecystitis. The CT findings remain concerning, and if clinically warranted a nuclear hepatobiliary scan should be obtained to assess for cystic duct obstruction. 2. There is no intra or extrahepatic biliary ductal dilatation." General Surgery consulted by the ED- appreciate recs Will continue to monitor. Patient does not have pain or elevated LFTs to suggest acute cholecystitis No more symptoms suggestive of acute cholecystitis Intraventricular thrombus at [place] CT abd/pelvis:"There is likely intraventricular thrombus at the apex seen on axial image #55.""Cardiomegaly and cardiac pacemaker. Findings are highly suspicious for intraventricular thrombus at the apex. 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 Cardiology consult- appreciate recs-please see cardiology note for further cardiac history Aspirin and Eliquis have been started Has been on aspirin and anticoagulation has not been started yet due to high risk of bleeding Discussed with the cardiology and GI Not to start Coumadin at this time and will assess risk and benefit down the line Discussed with the patient about anticoagulation which will not be started on discharge Hx of Cardiac Arrest s/p dual chamber Medtronic ICD placement/Atrial Flutter Coronary artery disease There was question whether patient had a stent placed to his left main and it appears there was a stent placed (but he was discharged on aspirin and Eliquis and not on Dual antiplatelet therapy) With his recent stent, there is concern for in stent thrombosis if he remains off aspirin for prolonged period so he will be restarted on his aspirin today per Cardiology Denies any more cardiac symptoms Cardiac medicines have been restarted No cardiac symptoms and remains hemodynamically stable to be discharged Prostate Cancer Hx Diagnosed in 2019 Follows with urology and radiation oncology locally Pulmonary Nodules CT scan notes pulmonary nodules, recommended CT scan repeat in 3 months. Diet: NPO except ice chips, Resume tube feeds when cleared by GI CODE STATUS: DNR/DNI DVT prophylaxis: Holding Eliquis due to acute GI bleed. SCDs and ambulation Dispo: PCU/tele Likely discharge this afternoon Total Time Total Time Spent Total Time Spent (In Minutes): 45 minutes Discharge Plan Discharge Items Patient Disposition: Home - Self-Care Reason For Visit: GI BLEED Discharge Diagnosis: Rectal bleed, rectal ulcers, history of prostate cancer, history of cardiac arrest status post dual-chamber Medtronic ICD placement, PEG tube status, Passed Speech and eating normally Condition on Discharge: Fair Activity: Resume your previous activity Non-emergency contact: Primary Care Provider Call non-emergency contact if: you have any medication questions and your sympt oms worsen Follow-up/Referrals: Oli Puente MD [Primary Care Provider] - (Date & Time 07/04/2023 12:00 PM Provider Oli Puente MD Department General Internal Medicine [facility] ) Diet: Heart Healthy Addtl Attending Provider Instructions: Please take precautions to avoid falls Take it easy Take your medications as advised Continue aspirin 81 mg daily and do not restart Eliquis and or Coumadin until you are seen by the [facility] Furnace Tender as an outpatient Your metoprolol doses have been decreased to 25 mg 4 times daily Please keep follow-up appointments with your healthcare providers Discontinue Sodium bicarbonate Has been tolerating diet orally PEG tube remains in place and has to be flushed as advised PEG tube can be taken out in about 6 to 8 weeks as per GI Pending Studies at Discharge: No Stand-Alone Forms: My [employer], Smoking Cessation Medications and DC Order Prescriptions: New pantoprazole 40 mg Tablet,Delayed Release (Dr/Ec) 40 mg PO QAM 30 Days Qty: 30 0RF metoprolol tartrate 25 mg Tablet 25 mg PO QID Qty: 120 0RF Continued aspirin [Adult Low Dose Aspirin] 81 mg tablet,delayed release (DR/EC) 81 mg PO DAILY Bioflex [id number] mg tablet 2 tab PO DAILY multivitamin Tablet 1 tab PO DAILY omega-3 fatty acids 1,000 mg capsule 1,000 mg PO DAILY cholecalciferol (vitamin D3) 50 mcg (2,000 unit) capsule 50 mcg PO DAILY acetaminophen [Tylenol Extra Strength] 500 mg tablet 500 mg PO Q6H PRN (Reason: Pain) ezetimibe 10 mg tablet 10 mg PO DAILY atorvastatin 80 mg tablet 80 mg PO HS torsemide 20 mg tablet 20 mg PO DAILY amiodarone 200 mg tablet 200 mg PO DAILY spironolactone 25 mg tablet 25 mg PO DAILY sertraline 50 mg tablet 50 mg PO DAILY sodium bicarbonate 325 mg Tablet 325 mg PO DAILY docusate sodium [Colace] 100 mg Capsule 100 mg PO BID calcium carbonate 500 mg calcium (1,250 mg) Tablet,Chewable 500 mg PO DAILY senna 8.6 mg Capsule 8.6 mg PO BID PRN (Reason: Constipation) Discontinued lisinopril-hydrochlorothiazide 20-12.5 mg tablet 1 tab PO DAILY carvedilol 25 mg tablet 25 mg PO BID metoprolol tartrate 50 mg tablet 50 mg PO QID Eliquis 5 mg tablet 5 mg PO BID calcium carbonate 400 mg calcium (1,000 mg) Tablet,Chewable 400 mg PO DAILY Discharge Orders: Discharge Order (Routine); Ordered 07/02/23 Ordered By: Sharon Meza Discharge Order- CHF (Routine); Ordered 07/02/23 Ordered By: Sharon Meza Admission Data Admit Date/Time: 06/25/23 14:33 Attending Provider: Sharon Meza Admit Provider: Samina Ruvalcaba Primary Care Provider: lOi Puente Other Providers: Alexys Sanchez ; Samina Ruvalcaba ; Danyelle Santos Jr ; [facility] ; Dennis Vance ; Smith Alvarado-Jud Other Interventions: Discharge Summary Assessment (RN) Last Done: 07/02/23 15:57
[2023-07-03] MEDS ORDERED: PANTOprazole 40 MG TAB PO SCH (09:00)
== END 2023-07-02 18:02 | disposition home health service (06) | DRG 327 ==
LOC: ED 10:20 → SUATTDRO 14:33 → EDINP 14:33 → 2S 17:44

== ENCOUNTER 2025-06-19 11:26 | Inpatient (IN) ==
--- NOTE | 2025-06-19 11:49 | Emergency Department Note ---
Impression & Plan Acute cholecystitis, Abdominal pain, acute, right upper quadrant ED Provider Note NAME: KALANI GREENBERG AGE: 74 SEX: M : 1950 ARRIVES VIA: Walk-In INFORMANT: Patient, ED PROVIDER(S): Bruce Mena DO CHIEF COMPLAINT: Abdominal pain HPI: The patient is a 74-year-old male who presented to the emergency department for an evaluation of abdominal pain. The patient describes right upper quadrant abdominal pain which started over the last few days. The patient denies having any chest pain. He states the pain does somewhat worsen with deep breathing. The patient has been compliant with his outpatient medications. He does take medications for atrial fibrillation. The patient denies having any fever or back pain. He denies having any dysuria or frequency. ROS: See above HPI for pertinent positives & negatives. A total of 10 systems reviewed and were otherwise negative. PAST MEDICAL HISTORY: See Below PAST SURGICAL HISTORY: See Below FAMILY HISTORY: See Below SOCIAL HISTORY: See Below HOME MEDICATIONS: See Below ALLERGIES: See Below VITALS: See Below PHYSICAL EXAMINATION: GENERAL: The patient is awake and alert. The patient is somewhat anxious appearing EYES: The conjunctivae are clear. The pupils are round and reactive. EARS, NOSE, MOUTH AND THROAT: The nose is without any evidence of any deformity. NECK: The neck is nontender and supple. RESPIRATORY: Normal respiratory effort is noted there is no evidence of wheezing rhonchi or rales CARDIOVASCULAR: Regular rate and rhythm noted there no murmurs rubs or gallops normal S1 normal S2. GASTROINTESTINAL: The abdomen is distended. There is right upper quadrant tenderness to palpation but no specific guarding or rigidity. BACK: No midline tenderness or or step-off noted range of motion in flexion extension as well as rotation no signs of muscle spasm noted MUSCULOSKELETAL/EXTREMITIES: There is no evidence of gross deformity full range of motion is noted in the hips and shoulders. SKIN: Skin is warm and dry. Pedal edema was noted bilaterally. NEUROLOGIC: Patient is awake alert and oriented x3 MEDICAL DECISION MAKING: The patient is a 74-year-old male who presented to the emergency department for an evaluation of right sided abdominal pain. The patient has known gallstones. The patient had a history of physical exam that was consistent with cholecystitis. Laboratory results did reveal an elevation in white blood cell count. The patient's LFTs were reassuring. Given his physical exam I discussed his condition with the on-call general surgeon. The evaluated the patient in the emergency department. They feel this is consistent with gallbladder pathology. I discussed the patient's condition with the [facility] for medical management. I discussed the patient's condition with him. He was agreeable with the plan. He was feeling much better on reevaluation. Triage Nursing notes reviewed. Prior medical records reviewed Vital Signs: reviewed and remarkable for no significant abnormalities Differential diagnosis: Etiologies such as appendicitis, diverticulitis, obstruction, inflammatory bowel disease, renal colic, PUD, biliary pathology, pancreatitis, mesenteric ischemia, aortic pathology, infections, genitourinary, UTI, perforated viscus, as well as others were entertained. ER treatment provided: See below Diagnostics interpreted by me: ECG: EKG was obtained in the emergency department. My interpretation is atrial paced rhythm at 74 bpm. No PVCs were noted. There were no lower elwha beats noted. Nonspecific ST and T wave abnormalities were noted. This was compared to a tracing from June 25, 2023. No changes were noted. Cardiac Monitoring: An order was placed for continuous cardiac monitoring. The monitor shows a rate of 65 bpm with paced rhythm. Laboratory studies: As stated above and show below. Imaging studies: See below. Radiographic imaging was reviewed by myself Consultation(s): I discussed this case with Gabrielle who is on for general surgery. I discussed this case with Allyson who is on for the [facility] hospitalist group. Past Med/Surg History Problem List (Updated 06/19/25 @ 15:13 by Bruce Mena DO) Abdominal pain, acute, right upper quadrant (Acute) Acute cholecystitis (Acute) Acute cholecystitis Elevated PSA Prostate cancer (Chronic 04/03/20) Bilateral knee pain DJD (degenerative joint disease) of knee Elevated transaminase level Painless rectal bleeding (Acute) Acute blood loss anemia Gallbladder anomaly Pulmonary nodule Dysphagia as late effect of cerebral aneurysm Atrial flutter ICD (implantable cardioverter-defibrillator) in place Hx of cardiac arrest Left ventricular thrombus Cardiomyopathy Encounter for pre-operative examination Rectal ulcer PEG tube malfunction Medical History Automatic implantable cardiac defibrillator in situ 04/2023, [employer], placed in [facility]>pacer/defibrillator Hx of cardiac arrest 03/2023, was on echmo, [facility] in [place], [place], intubated, and IMPELLA 4, and dialysis>in hospital for 6 weeks per cardio note-due to lt ventricular thrombus History of renal dialysis 03/2023, kidneys were beginning to fail following cardiac arrest, no longer on Chronic anemia Hypothyroidism Hx of malignant neoplasm of prostate 2018, XRT tx only Anxiety Depression Hypertension Hypercholesteremia Arthritis Heart attack 1992>led to CABG Surgical History Hx of colonoscopy PEG (percutaneous endoscopic gastrostomy) status History of esophagogastroduodenoscopy (EGD) History of cardiac cath ~2009, recheck following CABG procedure in 1992, [facility] [place], x 3 stents History of tonsillectomy H/O heart artery stent ~2009, recheck following CABG procedure in 1992, [facility] [place], x 3 stents S/P CABG x 2 1992, [facility]; f/u dr. franklin, [facility] Family History Father , 72yo Heart disease Rheumatic fever Mother , 74yo Heart disease Hypertension Anxiety Stroke Sister Breast cancer Multiple sclerosis Brother Myocardial infarction Brother Heart disease Hx of CABG Prostate cancer Brother Heart disease H/O heart artery stent Daughter No problems noted. Daughter No problems noted. Social History (Updated 06/19/25 @ 15:03 by Allyson Hughes PA-C) Smoking Status: Former smoker Cigarettes Per Day: 1/2 PPD x 20 years; Second Hand Exposure: Yes (hx); Do You Dip or Chew Tobacco: No; Hx Alcohol Use: Yes Alcohol type: beer Hx Substance Use: No Preferred Language: Albanian Communication Ability: Effective Visual Impairment: No Limitations Hearing Ability: Normal Certified Registered Locksmith Required: No Beliefs That Will Affect Care: None marital status: Current Living Situation: Spouse current occupational status: retired current occupation: [employer] Feels Safe at Home: Yes Diet: other caffeine: Yes (2 cups/day) Assistive Devices: Cane Allergies Allergies Allergy/AdvReac Type Severity Reaction Status Date / Time No Known Drug Allergies Allergy Unknown . Verified 01/18/25 11:48 Home Meds Home Medications Medication Instructions Recorded Confirmed aspirin 81 mg tablet,delayed 81 mg PO QAM 05/07/20 06/19/25 release (Adult Low Dose Aspirin) ezetimibe 10 mg tablet 10 mg PO QAM 05/07/20 06/19/25 multivitamin 1 tab PO QPM 05/07/20 06/19/25 omega-3 fatty acids 1,000 mg 1,000 mg PO QPM 05/07/20 06/19/25 capsule cholecalciferol (vitamin D3) 50 50 mcg PO QPM 12/31/20 06/19/25 mcg (2,000 unit) capsule amiodarone 200 mg tablet 200 mg PO QAM 06/25/23 06/19/25 atorvastatin 80 mg tablet 80 mg PO HS 06/25/23 06/19/25 sennosides 8.6 mg capsule (senna) 8.6 mg PO BID PRN Constipation 06/25/23 06/19/25 sertraline 50 mg tablet 50 mg PO QAM 06/25/23 06/19/25 spironolactone 25 mg tablet 25 mg PO QAM 06/25/23 06/19/25 torsemide 20 mg tablet 20 mg PO QAM 06/25/23 06/19/25 ascorbic acid (vitamin C) 1,000 mg 1 g PO HS 08/15/23 06/19/25 tablet (Vitamin C) calcium carbonate (Calcium 600) 600 mg PO QPM 08/15/23 06/19/25 levothyroxine 50 mcg tablet 50 mcg PO QAM 08/15/23 06/19/25 metoprolol tartrate 100 mg tablet 100 mg PO QAM 08/15/23 06/19/25 acetaminophen 650 mg 650 mg PO Q6H PRN Pain 01/04/24 06/19/25 tablet,extended release docosahexaenoic acid (dha)-epa 120 1 cap PO DAILY 01/04/24 06/19/25 mg-180 mg capsule (Fish Oil) lisinopril 2.5 mg tablet 2.5 mg PO HS 01/04/24 06/19/25 vit 2 tab PO DAILY 01/18/25 06/19/25 [id number] 500 mg-50 mg-25 mg-40 mg tablet (Bioflex) Results & Data (ED) Vital Signs Vital Signs - 24 hr 06/19/25 11:29 06/19/25 11:51 06/19/25 12:00 Temperature 36.0 C L Temperature Source Temporal Artery Scan Pulse Rate 67 60 Pulse Rate from SpO2 Sensor 61 Respiratory Rate 20 19 Respiratory Effort / Characteristics Non-Labored Spontaneous Respiratory Depth Normal Respiratory Pattern Regular Blood Pressure 129/80 117/82 Blood Pressure Mean 96 104 Blood Pressure Position Sitting Pulse Oximetry 97 96 96 Oxygen Delivery Method Room Air Room Air Sepsis Recent Fever Within 48 Hours No Sepsis New/Unexplained Change in Mental Status N/A Sepsis Action Taken by Nursing No Action Required 06/19/25 12:02 06/19/25 12:12 06/19/25 13:45 Temperature Temperature Source Pulse Rate 60 60 66 Pulse Rate from SpO2 Sensor 60 66 Respiratory Rate 19 24 Respiratory Effort / Characteristics Respiratory Depth Respiratory Pattern Blood Pressure 116/63 153/81 H Blood Pressure Mean 80 105 Blood Pressure Position Pulse Oximetry 95 93 Oxygen Delivery Method Sepsis Recent Fever Within 48 Hours Sepsis New/Unexplained Change in Mental Status Sepsis Action Taken by Nursing 06/19/25 14:00 Temperature Temperature Source Pulse Rate 65 Pulse Rate from SpO2 Sensor 65 Respiratory Rate 24 Respiratory Effort / Characteristics Respiratory Depth Respiratory Pattern Blood Pressure 121/73 Blood Pressure Mean 89 Blood Pressure Position Pulse Oximetry 93 Oxygen Delivery Method Sepsis Recent Fever Within 48 Hours Sepsis New/Unexplained Change in Mental Status Sepsis Action Taken by Retirement Medications Current Medication List: was personally reviewed by me Laboratory Data Attestation: I reviewed the patient's lab results. 06/19/25 11:37 06/19/25 11:37 Lab Results 06/19/25 Range/Units 11:37 WBC 18.45 H (4.8-10.8) K/ul RBC 4.78 (4.70-6.10) M/uL Hgb 14.8 (14.0-18.0) g/dl Hct 45.1 (42.0-52.0) % MCV 94.4 (80.0-100.0) fL MCH 31.0 (25.0-34.0) pg MCHC 32.8 (32.0-36.0) g/dL RDW Std Deviation 49.8 H (36.4-46.3) fL RDW Coeff of [place] 14.3 (11.5-14.5) % Plt Count 209 (130-400) K/uL MPV 9.8 (9.4-12.4) fL Immature Gran % (Auto) 1.7 % Neut % (Auto) 78.6 % Lymph % (Auto) 10.6 % [place] % (Auto) 8.8 % Eos % (Auto) 0.1 % Baso % (Auto) 0.2 % Neut # (Auto) 14.50 H (1.40-6.50) K/uL Lymph # (Auto) 1.95 (1.20-3.40) K/uL [place] # (Auto) 1.62 H (0.11-0.59) K/uL Eos # (Auto) 0.02 (0.00-0.50) K/uL Baso # (Auto) 0.04 (0.00-0.20) K/uL Immature Gran # (Auto) 0.32 H (0.01-0.20) K/uL PT 10.9 (9.0-12.0) Seconds INR 1.0 (0.9-1.1) APTT 25 (21-31) Seconds PTT Ratio 0.9 Sodium 137 (136-145) mmol/L Potassium 4.2 (3.5-5.1) mmol/L Chloride 101 (98-107) mmol/L Carbon Dioxide 25 (21-32) mmol/L Anion Gap 11 (3-11) BUN 21 (6-23) mg/dl Creatinine 1.24 (0.6-1.4) mg/dl Est Cr Clr Drug Dosing Not Reportable eGFR 61.01 BUN/Creatinine Ratio 16.9 (10-20) Glucose 179 H (70-99(Fasting)) mg/dl Calcium 9.3 (8.6-10.3) mg/dl Total Bilirubin 1.3 H (0.2-1.0) mg/dl AST 23 (13-39) U/L ALT 22 (7-52) U/L Alkaline Phosphatase 96 (34-104) U/L Troponin I High Sens 14.3 (0-20) pg/ml Total Protein 7.1 (6.0-8.3) gm/dl Albumin 4.2 (3.4-5.0) gm/dl Globulin 2.9 (2.5-4.0) gm/dl Albumin/Globulin Ratio 1.4 (0.9-2) Lipase 18 (11-82) U/L Urine Color Yellow Urine Appearance Clear (Clear) Urine pH 5.0 (4.5-7.5) Ur Specific [place] 1.010 (1.000-1.030) Urine Protein Negative (Negative) Urine Glucose (UA) Negative (Negative) Urine Ketones Negative (Negative) Urine Blood Negative (Negative) Urine Nitrite Negative (Negative) Urine Bilirubin Negative (Negative) Urine Urobilinogen Negative (Negative) Ur Leukocyte Esterase Negative (Negative) Urine Comment Administered Medications Morphine Sulfate (Morphine Sulfate 4 Mg/Ml 1 Ml Carp\Vial) 4 mg IV Q15M PRN PRN Reason: Pain Stop: 07/03/25 11:38 Last Admin: 06/19/25 11:51 Dose: 4 mg Documented By: ALIVIA Discontinued Medications Piperacillin Sod/Tazobactam Sod (Zosyn) 4.5 gm in 100 mls @ 200 mls/hr IV NOW ONE; Protocol Stop: 06/19/25 13:54 Last Infusion: 06/19/25 14:42 Dose: Infused Documented By: Admin: 06/19/25 13:58 Dose: 200 mls/hr Documented By: ALIVIA Ondansetron HCl (Ondansetron Inj 2 Mg/Ml 2 Ml Vial) 4 mg IV NOW STA Stop: 06/19/25 11:40 Last Admin: 06/19/25 11:51 Dose: 4 mg Documented By: ALIVIA Imaging Data Attestation: I personally reviewed and interpreted this imaging study as follows: My Impression: 1 view chest x-ray was obtained in the emergency department. My interpretation is no free air or definite infiltrate, final report below. Radiologist's Impression: Chest X-Ray 06/19/25 11:39 XR chest 1V portable CLINICAL HISTORY: RUQ COMPARISON STUDY: 06/30/2023 FINDINGS: Stable CABG and pacemaker. Stable cardiomegaly without pulmonary vascular congestion. Stable elevation of the right hemidiaphragm. No consolidation or pleural effusion seen. No pneumothorax. IMPRESSION: No acute findings. ACT 112: Negative or not required by law. Electronically signed by: Alexys Doe M.D. 06/19/2025 12:36 PM Gallbladder Ultrasound 06/19/25 11:39 ABDOMINAL ULTRASOUND, RIGHT UPPER QUADRANT HISTORY: Acute right upper quadrant abdominal pain RUQ. COMPARISON: CT 06/28/2023 FINDINGS: Pancreas: The pancreas is partially obscured by bowel gas. Liver: Increased echogenicity without mass. Gallbladder: Distended measuring 12 cm in length. Sludge with cholelithiasis. The wall measures within the upper limits of normal at 3 mm. Sonographic Gunderson sign was not reported by the solar electric practitioner. No pericholecystic fluid. CBD: 6 mm Right kidney: No hydronephrosis. IMPRESSION: 1. Distended gallbladder with cholelithiasis and layering sludge, similar in appearance to the ultrasound from 06/25/2023. No definitive evidence of acute cholecystitis. 2. No biliary ductal dilation. ACT 112: Negative or not required by law. Electronically signed by: Dao Carrasco M.D. 06/19/2025 1:28 PM KUB X-Ray 06/19/25 11:39 KUB HISTORY: RUQ COMPARISON STUDY: 06/26/2023 FINDINGS: There are surgical clips at the inguinal regions bilaterally. There is moderate retained stool. No bowel obstruction seen. No gross free air. IMPRESSION: No acute findings seen. ACT 112: Negative or not required by law. The above report was generated using voice recognition software. It may contain grammatical, syntax or spelling errors. Electronically signed by: Alexys Doe M.D. 06/19/2025 12:37 PM Discharge Plan Visit Data Chief Complaint: Abdominal Pain Stated Complaint: GALL BLADDER ? SHARP PAIN UPPER RGT ABD ED Provider: Bruce Mena Discharge Problem: Acute cholecystitis, Abdominal pain, acute, right upper quadrant Patient Disposition: Admitted As Inpatient Condition: Fair Forms Stand Alone Forms: [facility] Prescriptions Prescriptions: No Action aspirin [Adult Low Dose Aspirin] 81 mg tablet,delayed release (DR/EC) 81 mg PO QAM multivitamin Tablet 1 tab PO QPM omega-3 fatty acids 1,000 mg capsule 1,000 mg PO QPM Bioflex [id number] mg tablet 2 tab PO DAILY cholecalciferol (vitamin D3) 50 mcg (2,000 unit) capsule 50 mcg PO QPM lisinopril 2.5 mg tablet 2.5 mg PO HS Fish Oil 120-180 mg capsule 1 cap PO DAILY ezetimibe 10 mg tablet 10 mg PO QAM metoprolol tartrate 100 mg Tablet 100 mg PO QAM calcium carbonate [Calcium 600] 600 mg calcium (1,500 mg) Tablet 600 mg PO QPM ascorbic acid (vitamin C) [Vitamin C] 1,000 mg Tablet 1 g PO HS levothyroxine 50 mcg Tablet 50 mcg PO QAM acetaminophen 650 mg tablet extended release 650 mg PO Q6H PRN (Reason: Pain) atorvastatin 80 mg tablet 80 mg PO HS torsemide 20 mg tablet 20 mg PO QAM amiodarone 200 mg tablet 200 mg PO QAM spironolactone 25 mg tablet 25 mg PO QAM sertraline 50 mg tablet 50 mg PO QAM senna 8.6 mg Capsule 8.6 mg PO BID PRN (Reason: Constipation) Patient Comments: has been taking 1 every morning Referrals Referrals: Oli Puente MD [Primary Care Provider] -
[2025-06-19] MEDS: ONDANSETRON INJ 2 MG/ML 2 ML VIAL IV STA (11:51)
[2025-06-19] MEDS: MoRPHine SULFATE 4 MG/ML 1 ML CARP\\VIAL IV PRN (11:51)
[2025-06-19 11:58] LABS: Hematocrit (blood only) 45.1 % (42.0-52.0); Hemoglobin 14.8 g/dl (14.0-18.0); Immature Granulocytes # (auto) 0.32 K/uL (0.01-0.20); Immature Granulocytes % (auto) 1.7 %; Mean Corpuscular Hemoglobin 31.0 pg (25.0-34.0); Mean Corpuscular Volume 94.4 fL (80.0-100.0); Platelet Count 209 K/uL (130-400); RDW Standard Deviation 49.8 fL (36.4-46.3); Red Blood Count 4.78 M/uL (4.70-6.10); White Blood Count 18.45 K/ul (4.8-10.8)
[2025-06-19 11:59] LABS: Appearance Urine Clear (Clear); Glucose Urine UA Negative (Negative)
[2025-06-19 12:21] LABS: Alanine Aminotransferase 22 U/L (7-52); Albumin Globulin Ratio 1.4 (0.9-2); Alkaline Phosphatase 96 U/L (34-104); Anion Gap 11 (3-11); Bilirubin,Total 1.3 mg/dl (0.2-1.0); Blood Urea Nitrogen 21 mg/dl (6-23); Calcium 9.3 mg/dl (8.6-10.3); Carbon Dioxide 25 mmol/L (21-32); Chloride 101 mmol/L (98-107); Globulin 2.9 gm/dl (2.5-4.0); Glucose 179 mg/dl (70-99(Fasting)); Lipase 18 U/L (11-82); Potassium 4.2 mmol/L (3.5-5.1); Sodium 137 mmol/L (136-145); Total Protein 7.1 gm/dl (6.0-8.3)
[2025-06-19 12:36] LABS: INR 1.0 (0.9-1.1); Partial Thromboplastin Time 25 Seconds (21-31); Prothrombin Time 10.9 Seconds (9.0-12.0)
--- NOTE | 2025-06-19 12:37 | XRay Report ---
XR chest 1V portable CLINICAL HISTORY: RUQ COMPARISON STUDY: 06/30/2023 FINDINGS: Stable CABG and pacemaker. Stable cardiomegaly without pulmonary vascular congestion. Stabl e elevation of the right hemidiaphragm. No consolidation or pleural effusion seen. No pneumothorax. IMPRESSION: No acute findings. ACT 112: Negative or not required by law. Electronically signed by: Alexys Doe M.D. 06/19/2025 12:36 PM
--- NOTE | 2025-06-19 12:38 | XRay Report ---
KUB HISTORY: RUQ COMPARISON STUDY: 06/26/2023 FINDINGS: There are surgical clips at the inguinal regions bilaterally. There is moderate retained st ool. No bowel obstruction seen. No gross free air. IMPRESSION: No acute findings seen. ACT 112: Negative or not required by law. The above report was generated using voice recognition software. It may contain grammatical, syntax o r spelling errors. Electronically signed by: Alexys Doe M.D. 06/19/2025 12:37 PM
--- NOTE | 2025-06-19 13:29 | Ultrasound Report ---
ABDOMINAL ULTRASOUND, RIGHT UPPER QUADRANT HISTORY: Acute right upper quadrant abdominal pain RUQ. COMPARISON: CT 06/28/2023 FINDINGS: Pancreas: The pancreas is partially obscured by bowel gas. Liver: Increased echogenicity without mass. Gallbladder: Distended measuring 12 cm in length. Sludge with cholelithiasis. The wall measures withi n the upper limits of normal at 3 mm. Sonographic Gunderson sign was not reported by the contract processor. No pericholecystic fluid. CBD: 6 mm Right kidney: No hydronephrosis. IMPRESSION: 1. Distended gallbladder with cholelithiasis and layering sludge, similar in appearance to the ultras ound from 06/25/2023. No definitive evidence of acute cholecystitis. 2. No biliary ductal dilation. ACT 112: Negative or not required by law. Electronically signed by: Dao Carrasco M.D. 06/19/2025 1:28 PM
[2025-06-19] MEDS: PIPERACILLIN/TAZOBACTAM 4.5 GM/100 ML BAG IV ONE (13:58)
--- NOTE | 2025-06-19 14:02 | Surgery Consultation ---
Date of Consultation June 19, 2025 Assessment & Plan (1) Acute cholecystitis: His ultrasound images and results were personally viewed interpreted by myself He does have cholelithiasis without any definitive evidence of cholecystitis, however he has tenderness on exam and a white count of 18 Looking back through his chart his gallbladder has been abnormal on imaging since at least 2022 Will plan on a laparoscopic cholecystectomy, possible open, possible intraoperative cholangiogram Consent was obtained, risks discussed including bleeding, infection, bile leak, ductal injury History of Present Illness Reason for Consultation: Possible acute cholecystitis History of Present Illness This is a 74-year-old male who presented to the emergency department this afternoon with right upper quadrant abdominal pain since sometime last night. It began getting worse this morning which brought him to the ER. He denies any nausea or vomiting. He denies any fevers or chills. He has had 2 different PEG tubes placed in the past, otherwise no abdominal surgeries. He does have a history of cardiac arrest back in 2022 and he was on ECMO in [facility] but has recovered nicely from this. He states he did see his pharmacovigilance specialist within the last month and they did an echo and nuclear stress test which were okay. Takes a baby aspirin, otherwise no blood thinners. Denies any scleral icterus, jaundice, tea colored urine, acholic stools. Allergies Allergy/AdvReac Type Severity Reaction Status Date / Time No Known Drug Allergies Allergy Unknown . Verified 01/18/25 11:48 Home Medications Medication Instructions Recorded Confirmed Type aspirin 81 mg tablet,delayed 81 mg PO QAM 05/07/20 01/18/25 History release (Adult Low Dose Aspirin) ezetimibe 10 mg tablet 10 mg PO QAM 05/07/20 01/18/25 History multivitamin 1 tab PO QPM 05/07/20 01/18/25 History omega-3 fatty acids 1,000 mg 1,000 mg PO QPM 05/07/20 01/18/25 History capsule cholecalciferol (vitamin D3) 50 50 mcg PO QPM 12/31/20 01/18/25 History mcg (2,000 unit) capsule amiodarone 200 mg tablet 200 mg PO QAM 06/25/23 01/18/25 History atorvastatin 80 mg tablet 80 mg PO HS 06/25/23 01/18/25 History sennosides 8.6 mg capsule (senna) 8.6 mg PO BID PRN Constipation 06/25/23 01/18/25 History sertraline 50 mg tablet 50 mg PO QAM 06/25/23 01/18/25 History spironolactone 25 mg tablet 25 mg PO QAM 06/25/23 01/18/25 History torsemide 20 mg tablet 20 mg PO QAM 06/25/23 01/18/25 History ascorbic acid (vitamin C) 1,000 mg 1 g PO HS 08/15/23 01/18/25 History tablet (Vitamin C) calcium carbonate (Calcium 600) 600 mg PO QPM 08/15/23 01/18/25 History levothyroxine 50 mcg tablet 50 mcg PO QAM 08/15/23 01/18/25 History metoprolol tartrate 100 mg tablet 100 mg PO QAM 08/15/23 01/18/25 History acetaminophen 650 mg 650 mg PO Q6H PRN Pain 01/04/24 01/18/25 History tablet,extended release docosahexaenoic acid (dha)-epa 120 1 cap PO DAILY 01/04/24 01/18/25 History mg-180 mg capsule (Fish Oil) lisinopril 2.5 mg tablet 2.5 mg PO DAILY 01/04/24 01/18/25 History vit 2 tab PO DAILY 01/18/25 01/18/25 History [id number] 500 mg-50 mg-25 mg-40 mg tablet (Bioflex) Patient History Medical History Automatic implantable cardiac defibrillator in situ 04/2023, [employer], placed in [facility] in [place]>pacer/defibrillator Hx of cardiac arrest 03/2023, was on echmo, [facility] in [place], [place], intubated, and IMPELLA 4, and dialysis>in hospital for 6 weeks per cardio note-due to lt ventricular thrombus History of renal dialysis 03/2023, kidneys were beginning to fail following cardiac arrest, no longer on Chronic anemia Hypothyroidism Hx of malignant neoplasm of prostate 2018, XRT tx only Anxiety Depression Hypertension Hypercholesteremia Arthritis Heart attack 1992>led to CABG Surgical History Hx of colonoscopy PEG (percutaneous endoscopic gastrostomy) status History of esophagogastroduodenoscopy (EGD) History of cardiac cath ~2009, recheck following CABG procedure in 1992, [facility] [place], x 3 stents History of tonsillectomy H/O heart artery stent ~2009, recheck following CABG procedure in 1992, [facility] [place], x 3 stents S/P CABG x 2 1992, [facility]; f/u dr. franklin, s Family History Father , 72yo Heart disease Rheumatic fever Mother , 74yo Heart disease Hypertension Anxiety Stroke Sister Breast cancer Multiple sclerosis Brother Myocardial infarction Brother Heart disease Hx of CABG Prostate cancer Brother Heart disease H/O heart artery stent Daughter No problems noted. Daughter No problems noted. Social History Smoking Status: Never smoker Cigarettes Per Day: 1/2 PPD x 20 years; Second Hand Exposure: Yes (hx); Do You Dip or Chew Tobacco: No; Hx Alcohol Use: Yes Alcohol type: beer Hx Substance Use: No Preferred Language: Irish Communication Ability: Effective Visual Impairment: No Limitations Hearing Ability: Normal [place] Required: No Beliefs That Will Affect Care: None marital status: Current Living Situation: Spouse current occupational status: retired current occupation: [employer] Feels Safe at Home: Yes Diet: other caffeine: Yes (2 cups/day) Assistive Devices: Cane Review of Systems Constitutional: no fever and no chills Eyes: no blind spots and no corrective lenses Ear, Nose, Mouth, Throat: no ear pain and no hearing loss Respiratory: no cough and no dyspnea Cardiovascular: no chest pain and no dyspnea on exertion Gastrointestinal: + abdominal pain, + nausea, + vomiting, + constipation and + diarrhea/loose stools Genitourinary: no dysuria or no decreased urination Musculoskeletal: no back pain and no neck pain Integumentary: no acne, no sores, no urticaria and no skin swelling Neurologic: no gait abnormality and no tremor(s) Psychiatric: no behavioral changes and no depression Hematologic / Lymphatic: no easy bleeding and no easy bruising Physical Exam Constitutional: WD/WN, vitals as above Eyes: PERRL, conjunctivae normal, anicteric sclerae ENMT: external ear and nose normal, oropharynx normal Neck: trachea midline, no thyromegaly Respiratory: normal respiratory effort, lungs clear to auscultation Cardiovascular: RRR, no murmur, no edema Gastrointestinal (Abdomen): Inspection/Auscultation: abdomen normal to inspection; abdomen not distended Percussion/Palpation: + abdomen tender (Right upper quadrant), abdomen soft, + hernia and + ascites (Reducible umbilical); no guarding Musculoskeletal: no cyanosis or clubbing, extremities motor strength 5/5 Skin: no rashes, warm and dry Neurologic: PERRL, EOMI, accommodation nl, no face palsy, no dysarthria Psychiatric: A+Ox3, euthymic affect Results & Data Vital Signs (Past 12 Hours) Vital Signs Temp Pulse Resp BP Pulse Ox O2 Del Method 06/19/25 12:02 60 06/19/25 12:00 96 Room Air 06/19/25 11:51 60 19 117/82 96 06/19/25 11:29 36.0 C L 67 20 129/80 97 Room Air PG Care Time/CCT Total # of Minutes Spent Total Time Spent with Patient: Total time spent is greater than 50% in coordination of care (as documented) at patient's floor/unit and/or counseling patient: Coding Level of Care Code 79737 OP VST NEW HI 60 MIN Diagnoses Acute cholecystitis K81.0
[2025-06-19] MEDS ORDERED: ROCURONIUM BROMIDE 10 MG/ML 5 ML VIAL IV ONE (14:25)
[2025-06-19] MEDS ORDERED: LIDOCAINE 2% 2 ML VIAL/AMP(20MG/ML) INFIL ONE (14:25)
[2025-06-19] MEDS ORDERED: DEXAMETHASONE SOD INJ 4 MG/ML VIAL ONE (14:25)
[2025-06-19] MEDS ORDERED: PROPOFOL IV EMULSION 10 MG/ML 20 ML VIAL IV ONE (14:25)
[2025-06-19] MEDS ORDERED: GLYCOPYRROLATE 0.2 MG/ML VIAL ONE (14:25)
[2025-06-19] MEDS ORDERED: MIDAZOLAM HCL 1 MG/ML 2ML VIAL ONE (14:25)
[2025-06-19] MEDS ORDERED: ONDANSETRON INJ 2 MG/ML 2 ML VIAL ONE (14:25)
[2025-06-19] MEDS ORDERED: SUGAMMADEX SODIUM 200 MG/2 ML VIAL IV ONE (14:26)
--- NOTE | 2025-06-19 14:54 | History & Physical Report ---
Date of Service June 19, 2025 Assessment & Plan (1) Acute cholecystitis: (2) CAD (coronary artery disease): (3) Hx of two vessel coronary artery bypass graft: (4) Hx of cardiac arrest: (5) Automatic implantable cardiac defibrillator in situ: (6) Hypertension: (7) Hypercholesteremia: (8) Left ventricular thrombus: Plan "Angel" Malia Is a 74-year-old male who has a complex past medical history including CAD with CABG x 2 including vein graft to the ramus intermedius into the distal RCA territory, status post PCI intervention in August 2012, ischemic cardiomyopathy and chronic systolic CHF, left ventricular apical mural thrombus previously on warfarin since resolved with reoccurrence per echo since 2022, now likely calcified per most recent echo in April 2025, history of ventricular fibrillation cardiac arrest status post AICD, history of significant GI bleeding secondary to rectal ulcers status post epinephrine injection with ablation and heat probe, history of atrial flutter, history of left ventricular apical aneurysm, history of prostate cancer, MG US, HTN, HLD, prediabetes and hypothyroidism who presents to ED secondary to right upper quadrant abdominal pain x 1 day. #Acute cholecystitis [facility] on board Initial plan was for OR today; however general surgery/anesthesia planning to wait til tomorrow as family wishes for further discussion with cardiology prior to clearance After further discussion with Dr Barraza and Dr. Vance of anesthesia NPO after midnight, clears for today Empiric IV zosyn given leukocytosis CT A/P per gen surg Given pts cardiac complexity he is moderate-high risk for elective/urgent proc edures, pt recently underwent nuclear stress test/echo with reception interviewer Dr. Franklin EF 45-49%LVEF which is stable and unchanged, moderately sized apical and anterior septal wall motion abnormality with hypokinesis to akinesis, moderately sized apical scar, mild mitral vegetation and tricuspid regurgitation and laminar mural thrombus per Dr. Franklin's outpatient note from April 2025 pts mural thrombus is chronically calcified, currently off anticoagulation due to life-threatening GI bleeding pacer/AICD most recently interrogated as an outpatient in April with no evidence of arrhythmias patient is planning to undergo elective hip surgery in [place] and per EPIC Dr. Franklin's note feels from cardiac standpoint he is okay to proceed RCRI score is 2 with 5% risk of major cardiac event, pt moderate-high risk given complexity, okay to proceed with surgery if felt indicated #CAD with hx of CABG x 2 in , hx of PCI in 2011 #Ischemic cardiomyopathy #Chronic systolic CHF #Chronically calcified LV apical mural thrombus not on anticoagulation due to hx of life threatening GIB #Hx of Cardiac arrest 2/2 Vfib s/p Dual chambered AICD in 2022 in [place], [place] #Hx of aflutter #HTN #HLD pt stable from a cardiac standpoint on GDMT, daily weights, I and OS continue asa, statin, metoprolol, lisinopril, amiodarone and aldactone hold torsemide tomorrow given surgery - resume As soon as possible post operatively #Pre diabetes a1c 5.7 05/24/24 #DVT ppx: SCDS given hx of life threatening GIB FULL CODE PCP: Kwame Dispo: Admit to med tele Pt was seen and examined in collaboration with Dr. Carballo, please see addendum I spent a total of 80 minutes coordinating, documenting and providing care for this patient excluding time spent in the performance of separately billed services or time spent by another provider/QHP. History of Present Illness Chief Complaint: Abd pain x 1 day. Primary Care Provider: Oli Puente MD "Fidel Finley Is a 74-year-old male who has a complex past medical history including CAD with CABG x 2 including vein graft to the ramus intermedius into the distal RCA territory, status post PCI intervention in August 2012, ischemic cardiomyopathy and chronic systolic CHF, left ventricular apical mural thrombus previously on warfarin since resolved with reoccurrence per echo since 2022, now likely calcified per most recent echo in April 2025, history of ventricular fibrillation cardiac arrest status post AICD, history of significant GI bleeding secondary to rectal ulcers status post epinephrine injection with ablation and heat probe, history of atrial flutter, history of left ventricular apical aneurysm, history of prostate cancer, MG US, HTN, HLD, prediabetes and hypothyroidism who presents to ED secondary to right upper quadrant abdominal pain x 1 day. Pt has been having intermittent abdominal discomfort. His sx started again last Night after eating supper and significantly got worse again this morning after drinking coffee. Pain is in the right upper quadrant with radiation around his right mid back with associated nausea and sweats. He has been unable to eat or drink anything. He denies mare fever or chills, chest pain, shortness of breath, cough, URI symptoms, vomiting, hematemesis, change in bowel or urinary habits. He typically moves his bowels every other day. He denies any melena or hematochezia. He has been compliant with his medications. In ED patient was hemodynamically stable. Notable lab abnormalities are leukocytosis at 18,000, total bilirubin1.31.3 and right upper quadrant ultrasound revealing distended gallbladder with cholelithiasis and layering sludge. No definitive evidence of acute cholecystitis or biliary ductal dilatation. Allergies Allergy/AdvReac Type Severity Reaction Status Date / Time No Known Drug Allergies Allergy Unknown . Verified 01/18/25 11:48 Home Medications Medication Instructions Recorded Confirmed Type aspirin 81 mg tablet,delayed 81 mg PO QAM 05/07/20 06/19/25 History release (Adult Low Dose Aspirin) ezetimibe 10 mg tablet 10 mg PO QAM 05/07/20 06/19/25 History multivitamin 1 tab PO QPM 05/07/20 06/19/25 History omega-3 fatty acids 1,000 mg 1,000 mg PO QPM 05/07/20 06/19/25 History capsule cholecalciferol (vitamin D3) 50 50 mcg PO QPM 12/31/20 06/19/25 History mcg (2,000 unit) capsule amiodarone 200 mg tablet 200 mg PO QAM 06/25/23 06/19/25 History atorvastatin 80 mg tablet 80 mg PO HS 06/25/23 06/19/25 History sennosides 8.6 mg capsule (senna) 8.6 mg PO BID PRN Constipation 06/25/23 06/19/25 History sertraline 50 mg tablet 50 mg PO QAM 06/25/23 06/19/25 History spironolactone 25 mg tablet 25 mg PO QAM 06/25/23 06/19/25 History torsemide 20 mg tablet 20 mg PO QAM 06/25/23 06/19/25 History ascorbic acid (vitamin C) 1,000 mg 1 g PO HS 08/15/23 06/19/25 History tablet (Vitamin C) calcium carbonate (Calcium 600) 600 mg PO QPM 08/15/23 06/19/25 History levothyroxine 50 mcg tablet 50 mcg PO QAM 08/15/23 06/19/25 History metoprolol tartrate 100 mg tablet 100 mg PO QAM 08/15/23 06/19/25 History acetaminophen 650 mg 650 mg PO Q6H PRN Pain 01/04/24 06/19/25 History tablet,extended release docosahexaenoic acid (dha)-epa 120 1 cap PO DAILY 01/04/24 06/19/25 History mg-180 mg capsule (Fish Oil) lisinopril 2.5 mg tablet 2.5 mg PO HS 01/04/24 06/19/25 History vit 2 tab PO DAILY 01/18/25 06/19/25 History [id number] 500 mg-50 mg-25 mg-40 mg tablet (Bioflex) Past Med/Surg History Problem List (Updated 06/19/25 @ 15:55 by Allyson Hughes PA-C) Hx of two vessel coronary artery bypass graft CAD (coronary artery disease) Abdominal pain, acute, right upper quadrant (Acute) Acute cholecystitis (Acute) Acute cholecystitis Elevated PSA Prostate cancer (Chronic 04/03/20) Bilateral knee pain DJD (degenerative joint disease) of knee Elevated transaminase level Painless rectal bleeding (Acute) Acute blood loss anemia Gallbladder anomaly Pulmonary nodule Dysphagia as late effect of cerebral aneurysm Atrial flutter ICD (implantable cardioverter-defibrillator) in place Hx of cardiac arrest Left ventricular thrombus Cardiomyopathy Encounter for pre-operative examination Rectal ulcer PEG tube malfunction Medical History Automatic implantable cardiac defibrillator in situ 04/2023, [employer], placed in [facility] in [place]>pacer/defibrillator Hx of cardiac arrest 03/2023, was on echmo, [facility] in [place], [place], intubated, and IMPELLA 4, and dialysis>in hospital for 6 weeks per cardio note-due to lt ventricular thrombus History of renal dialysis 03/2023, kidneys were beginning to fail following cardiac arrest, no longer on Chronic anemia Hypothyroidism Hx of malignant neoplasm of prostate 2018, XRT tx only Anxiety Depression Hypertension Hypercholesteremia Arthritis Heart attack 1992>led to CABG Surgical History Hx of colonoscopy PEG (percutaneous endoscopic gastrostomy) status History of esophagogastroduodenoscopy (EGD) History of cardiac cath ~2009, recheck following CABG procedure in 1992, [facility] [place], x 3 stents History of tonsillectomy H/O heart artery stent ~2009, recheck following CABG procedure in 1992, [facility] [place], x 3 stents S/P CABG x 2 1992, [facility]; f/u dr. franklin, s Family History Father , 72yo Heart disease Rheumatic fever Mother , 74yo Heart disease Hypertension Anxiety Stroke Sister Breast cancer Multiple sclerosis Brother Myocardial infarction Brother Heart disease Hx of CABG Prostate cancer Brother Heart disease H/O heart artery stent Daughter No problems noted. Daughter No problems noted. Social History (Updated 06/19/25 @ 15:03 by Allyson Hughes PA-C) Smoking Status: Former smoker Cigarettes Per Day: 1/2 PPD x 20 years; Second Hand Exposure: Yes (hx); Do You Dip or Chew Tobacco: No; Hx Alcohol Use: Yes Alcohol type: beer Hx Substance Use: No Preferred Language: Armenian Communication Ability: Effective Visual Impairment: No Limitations Hearing Ability: Normal International Exchange Coordinator Required: No Beliefs That Will Affect Care: None marital status: Current Living Situation: Spouse current occupational status: retired current occupation: [employer] Feels Safe at Home: Yes Diet: other caffeine: Yes (2 cups/day) Assistive Devices: Cane Review of Systems Review of Systems: All systems reviewed & are unremarkable except as noted in HPI & below Physical Exam Physical Exam: Constitutional: WD/WN, vitals as above, NAD, sitting up in bed, pleasant, conversing easily Head: Normocephalic, Atraumatic Eyes: conjunctivae normal, anicteric sclerae ENMT: external ear and nose normal, oropharynx normal Neck: trachea midline, no thyromegaly normal visual inspection Respiratory: normal respiratory effort, lungs clear to auscultation, no wheeze, rales, rhonchi. Normal insp/exp effort, no accessory muscle use Cardiovascular: RRR, no murmur, no edema Chest: normal inspection of chest , sternal scar noted Abdomen: normal bowel sounds, soft, TTP RUQ with guarding, no rebound Musculoskeletal: no cyanosis or clubbing, AROM x 4 Skin: no rashes, warm and dry normal turgor Neurologic: no face palsy, no dysarthria CN's II-XI intact bilaterally and moves all extremities Psychiatric: A+Ox3, euthymic affect Results & Data Results & Data Vital Signs (Past 12 Hours) Vital Signs Temp Pulse Resp BP Pulse Ox O2 Del Method 06/19/25 14:00 65 24 121/73 93 06/19/25 13:45 66 24 153/81 H 93 06/19/25 12:12 60 19 116/63 95 06/19/25 12:02 60 06/19/25 12:00 96 Room Air 06/19/25 11:51 60 19 117/82 96 06/19/25 11:29 36.0 C L 67 20 129/80 97 Room Air Laboratory Results I have independently reviewed and interpreted patient's admitting labs including CBC, CMP, PTT, PT/INR, lipase, urine and troponin. Diagnostic Findings Chest X-Ray 06/19/25 11:39 XR chest 1V portable CLINICAL HISTORY: RUQ COMPARISON STUDY: 06/30/2023 FINDINGS: Stable CABG and pacemaker. Stable cardiomegaly without pulmonary vascular congestion. Stable elevation of the right hemidiaphragm. No consolidation or pleural effusion seen. No pneumothorax. IMPRESSION: No acute findings. ACT 112: Negative or not required by law. Electronically signed by: Alexys Doe M.D. 06/19/2025 12:36 PM Gallbladder Ultrasound 06/19/25 11:39 ABDOMINAL ULTRASOUND, RIGHT UPPER QUADRANT HISTORY: Acute right upper quadrant abdominal pain RUQ. COMPARISON: CT 06/28/2023 FINDINGS: Pancreas: The pancreas is partially obscured by bowel gas. Liver: Increased echogenicity without mass. Gallbladder: Distended measuring 12 cm in length. Sludge with cholelithiasis. The wall measures within the upper limits of normal at 3 mm. Sonographic Gunderson sign was not reported by the blood and plasma laboratory assistant. No pericholecystic fluid. CBD: 6 mm Right kidney: No hydronephrosis. IMPRESSION: 1. Distended gallbladder with cholelithiasis and layering sludge, similar in appearance to the ultrasound from 06/25/2023. No definitive evidence of acute cholecystitis. 2. No biliary ductal dilation. ACT 112: Negative or not required by law. Electronically signed by: Dao Carrasco M.D. 06/19/2025 1:28 PM KUB X-Ray 06/19/25 11:39 KUB HISTORY: RUQ COMPARISON STUDY: 06/26/2023 FINDINGS: There are surgical clips at the inguinal regions bilaterally. There is moderate retained stool. No bowel obstruction seen. No gross free air. IMPRESSION: No acute findings seen. ACT 112: Negative or not required by law. The above report was generated using voice recognition software. It may contain grammatical, syntax or spelling errors. Electronically signed by: Alexys Doe M.D. 06/19/2025 12:37 PM Medications Administered Medication List Morphine Sulfate (Morphine Sulfate 4 Mg/Ml 1 Ml Carp\\Vial) 4 mg IV Q15M PRN PRN Reason: Pain Stop: 07/03/25 11:38 Last Admin: 06/19/25 11:51 Dose: 4 mg Documented By: ALIVIA Discontinued Medications Piperacillin Sod/Tazobactam Sod (Zosyn) 4.5 gm in 100 mls @ 200 mls/hr IV NOW ONE; Protocol Stop: 06/19/25 13:54 Last Infusion: 06/19/25 14:42 Dose: Infused Documented By: Admin: 06/19/25 13:58 Dose: 200 mls/hr Documented By: ALIVIA Ioversol (Optiray 320 100ml) 90 ml IV ONCE ONE Stop: 06/19/25 15:25 Last Admin: 06/19/25 15:25 Dose: 90 ml Documented By: JENNIFER Ondansetron HCl (Ondansetron Inj 2 Mg/Ml 2 Ml Vial) 4 mg IV NOW STA Stop: 06/19/25 11:40 Last Admin: 06/19/25 11:51 Dose: 4 mg Documented By: ALIVIA ECG Additional Comments: I have independently reviewed and interpreted patient's admitting EKG which revealed: atrial paced V4-6 t wave in II, avf similar to previous in 2022 COVID-19 Results Results COVID-19 Adm Lab Results: RBC 4.78 M/uL (4.70-6.10) 06/19/25 WBC 18.45 K/ul (4.8-10.8) H 06/19/25 Hgb 14.8 g/dl (14.0-18.0) 06/19/25 Hct 45.1 % (42.0-52.0) 06/19/25 Plt Count 209 K/uL (130-400) 06/19/25 Neutrophils (%) (Auto) 78.6 % 06/19/25 Lymphocytes (%) (Auto) 10.6 % 06/19/25 Monocytes # (Auto) 1.62 K/uL (0.11-0.59) H 06/19/25 Eosinophils # (Auto) 0.02 K/uL (0.00-0.50) 06/19/25 Immature Granulocyte % (Auto) 1.7 % 06/19/25 Neutrophils # (Auto) 14.50 K/uL (1.40-6.50) H 06/19/25 Lymphocytes # (Auto) 1.95 K/uL (1.20-3.40) 06/19/25 Monocytes # (Auto) 1.62 K/uL (0.11-0.59) H 06/19/25 Eosinophils # (Auto) 0.02 K/uL (0.00-0.50) 06/19/25 Basophils # (Auto) 0.04 K/uL (0.00-0.20) 06/19/25 Immature Granulocyte # (Auto) 0.32 K/uL (0.01-0.20) H 06/19 Na 137 mmol/L (136-145) 06/19/25 K 4.2 mmol/L (3.5-5.1) 06/19/25 Cl 101 mmol/L (98-107) 06/19/25 CO2 25 mmol/L (21-32) 06/19/25 Anion Gap 11 (3-11) 06/19/25 BUN 21 mg/dl (6-23) 06/19/25 Creatinine 1.24 mg/dl (0.6-1.4) 06/19/25 BUN/Creatinine Ratio 16.9 (10-20) 06/19/25 Glucose Level 179 mg/dl (70-99(Fasting)) H 06/19/25 Ca 9.3 mg/dl (8.6-10.3) 06/19/25 Total Bilirubin 1.3 mg/dl (0.2-1.0) H 06/19/25 AST/SGOT 23 U/L (13-39) 06/19/25 ALT/SGPT 22 U/L (7-52) 06/19/25 Alkaline Phosphatase 96 U/L (34-104) 06/19/25 Total Protein 7.1 gm/dl (6.0-8.3) 06/19/25 Albumin 4.2 gm/dl (3.4-5.0) 06/19/25 Globulin 2.9 gm/dl (2.5-4.0) 06/19/25 Albumin/Globulin Ratio 1.4 (0.9-2) 06/19/25 PTT 25 Seconds (21-31) 06/19/25 INR 1.0 (0.9-1.1) 06/19/25 Chest X-Ray 06/19/25 Code Status & VTE Plan Code Status FULL CODE VTE Prophylaxis Plan VTE Prophylaxis will be ordered: Yes Supervising Physician Co-Signing Physician Notes Patient seen and examined independently. Patient presents to the hospital with right upper quadrant abdominal pain. Patient is at high risk for hans-operative complications given his cardiac history. No further cardiac testing required as per cardiology. Plan for continue zosyn, clear liquid diet and NPO from midnight I have reviewed the advanced practitioner's documentation, and I agree with, and take responsibility for the plan of care I spent a total of 30 minutes coordinating, documenting, and providing care for this patient excluding time spent in the performance of separately billed services. All of the aforementioned completed while collaborating with the assigned advanced practitioner for a full treatment plan
--- NOTE | 2025-06-19 15:18 | Communication Note ---
Date of Service: June 19, 2025 After initially evaluating the patient it was deemed appropriate to have cardiology weigh in the patient given his significant cardiac history. We appreciate their input prior to proceeding with laparoscopic cholecystectomy. The hospitalists are planning on admitting the patient. He may have some clears and make NPO at midnight for tentative procedure tomorrow. In the meantime we will also order a CT a/p for further evaluation of his gallbladder. Patient/family/hospitalists aware of the plan and in agreement.
[2025-06-19] MEDS: OPTIRAY 320 100ml IV ONE (15:25)
--- NOTE | 2025-06-19 15:47 | CT Scan Report ---
CT SCAN OF THE ABDOMEN AND PELVIS WITH IV CONTRAST CLINICAL HISTORY: Right upper quadrant pain. COMPARISON STUDY: CT of the abdomen June 28, 2023. Right upper quadrant ultrasound performed donnie brady today. TECHNIQUE: Following the IV administration of 90 cc of Optiray 320, CT scan of the abdomen and pelvi s is performed from the lung bases to the proximal femora. Images are reviewed in the axial, sagittal , and coronal planes. IV contrast was administered without complication. A dose lowering technique wa s utilized adhering to the principles of ALARA. CT DOSE: 1591.82 mGy.cm FINDINGS: Elevation of the right hemidiaphragm is unchanged. Linear right lower lung densities repres ent atelectasis. The heart is moderately enlarged. Extensive coronary artery calcification is noted. 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 No pneumatosis, free air or nivia l venous gas is present. There is no biliary or pancreatic ductal dilatation. The gallbladder is mild ly distended. Multiple gallstones within the gallbladder present. There is gallbladder wall thickenin g with adjacent stranding and a small amount of pericholecystic fluid. Spleen, adrenal glands and rig ht kidney are normal. The pancreas is unremarkable. Low-attenuation left renal lesions favor cysts. T here is no evidence for a bowel obstruction. Caliber and wall thickness of small and large bowel are normal. There is sigmoid diverticulosis without evidence for acute diverticulitis. There are fiducial markers within the prostate. There is no lymphadenopathy. There is extensive plaque within the abdom inal aorta. IMPRESSION: 1. Findings consistent with acute cholecystitis. 2. No biliary ductal dilatation. 3. Extensive sigmoid diverticulosis. No evidence for acute diverticulitis. ACT 112: Negative or not required by law. Electronically signed by: David Kim M.D. 06/19/2025 3:45 PM
[2025-06-19] MEDS ORDERED: ONDANSETRON INJ 2 MG/ML 2 ML VIAL IV PRN (16:59)
[2025-06-19] MEDS: HYDROmorphone INJ 0.5 MG/0.5 ML SYR IV PRN (19:51)
[2025-06-19] MEDS: ATORVASTATIN 40 MG TAB PO SCH (21:30)
[2025-06-19] MEDS: CALCIUM CARBONATE 1250MG TAB PO SCH (21:30)
[2025-06-19] MEDS: CHOLECALCIFEROL 25 MCG (1000 UNITS) TAB PO SCH (21:30)
[2025-06-19] MEDS: PIPERACILLIN/TAZOBACTAM 4.5 GM/100 ML BAG IV SCH (21:31)
[2025-06-19] MEDS: ASCORBIC ACID 500 MG TAB PO SCH (21:31)
[2025-06-20] MEDS: Patient's HEIGHT &/or WEIGHT Needed STA (04:02)
[2025-06-20] MEDS: LEVOTHYROXINE SODIUM 50 MCG TABLET PO SCH (06:33)
[2025-06-20 06:55] LABS: Hematocrit (blood only) 42.7 % (42.0-52.0); Hemoglobin 14.1 g/dl (14.0-18.0); Immature Granulocytes # (auto) 0.09 K/uL (0.01-0.20); Immature Granulocytes % (auto) 0.6 %; Mean Corpuscular Hemoglobin 31.1 pg (25.0-34.0); Mean Corpuscular Volume 94.3 fL (80.0-100.0); Platelet Count 164 K/uL (130-400); RDW Standard Deviation 50.6 fL (36.4-46.3); Red Blood Count 4.53 M/uL (4.70-6.10); White Blood Count 15.98 K/ul (4.8-10.8)
[2025-06-20 07:21] LABS: Alanine Aminotransferase 58.0 U/L (7-52); Albumin Globulin Ratio 1.6 (0.9-2); Alkaline Phosphatase 76.0 U/L (34-104); Anion Gap 9.0 (3-11); Bilirubin,Total 1.6 mg/dl (0.2-1.0); Blood Urea Nitrogen 27.0 mg/dl (6-23); Calcium 9.0 mg/dl (8.6-10.3); Carbon Dioxide 28.0 mmol/L (21-32); Chloride 101.0 mmol/L (98-107); Creatinine Clr Calc Pharmacy 61.9 ml/min; Globulin 2.5 gm/dl (2.5-4.0); Glucose 121.0 mg/dl (70-99(Fasting)); Magnesium 2.0 mg/dl (1.7-2.4); Potassium 3.9 mmol/L (3.5-5.1); Sodium 138.0 mmol/L (136-145); Total Protein 6.4 gm/dl (6.0-8.3)
--- NOTE | 2025-06-20 08:53 | Anesthesiology Consultation ---
Date of Service June 20, 2025 Assessment & Plan (1) Encounter for pre-operative examination: Chart Review Chart Review: Acceptable Risk for Surgery and Patient NOT seen in Pre Admission Testing Cardiology note: ASCVD: [place] 1992. CABG x2. PCI to diag1 and left main 08/2012. Ischemic cardiomyopathy. 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 On coumadin, resolved 05/2021. Reoccurrence per echo 05/2023. Possibly calcified per CT. 04/13/23 s/p V fib cardiac arrest with placement of impella left ventricular assist device cardiac cath revealed patent stents and bypasses and PCI no performed, transitioned to ECMO support. multiple bleeding issues during march 2023. peg placed and recently removed. 05/19/23 implantation of dual-chamber medtronic AICD. hx/o a flutter and cardioversion. Consults Requested none History Surgery Operation Date: 06/20/25 08:50 Proposed Procedures p Laparoscopic Cholecystectomy - Leonardo Barraza, Height/Weight Height: 6 ft 1 in Weight: 114.668 kg Allergies Allergy/AdvReac Type Severity Reaction Status Date / Time No Known Drug Allergies Allergy Unknown . Verified 01/18/25 11:48 Medications Home Medications Medication Instructions Recorded Confirmed Last Taken aspirin 81 mg tablet,delayed 81 mg PO QAM 05/07/20 06/19/25 08/23/23 08:00 release (Adult Low Dose Aspirin) ezetimibe 10 mg tablet 10 mg PO QAM 05/07/20 06/19/25 08/23/23 08:00 multivitamin 1 tab PO QPM 05/07/20 06/19/25 Unknown omega-3 fatty acids 1,000 mg 1,000 mg PO QPM 05/07/20 06/19/25 08/19/23 capsule cholecalciferol (vitamin D3) 50 50 mcg PO QPM 12/31/20 06/19/25 08/19/23 mcg (2,000 unit) capsule amiodarone 200 mg tablet 200 mg PO QAM 06/25/23 06/19/25 08/23/23 08:00 atorvastatin 80 mg tablet 80 mg PO HS 06/25/23 06/19/25 08/22/23 sennosides 8.6 mg capsule (senna) 8.6 mg PO BID PRN Constipation 06/25/23 06/19/25 Unknown sertraline 50 mg tablet 50 mg PO QAM 06/25/23 06/19/25 08/23/23 08:00 spironolactone 25 mg tablet 25 mg PO QAM 06/25/23 06/19/25 08/22/23 torsemide 20 mg tablet 20 mg PO QAM 06/25/23 06/19/25 08/22/23 ascorbic acid (vitamin C) 1,000 mg 1 g PO HS 08/15/23 06/19/25 08/19/23 tablet (Vitamin C) calcium carbonate (Calcium 600) 600 mg PO QPM 08/15/23 06/19/25 Unknown levothyroxine 50 mcg tablet 50 mcg PO QAM 08/15/23 06/19/25 08/23/23 08:00 metoprolol tartrate 100 mg tablet 100 mg PO QAM 08/15/23 06/19/25 08/23/23 08:00 acetaminophen 650 mg 650 mg PO Q6H PRN Pain 01/04/24 06/19/25 Unknown tablet,extended release docosahexaenoic acid (dha)-epa 120 1 cap PO DAILY 01/04/24 06/19/25 Unknown mg-180 mg capsule (Fish Oil) lisinopril 2.5 mg tablet 2.5 mg PO HS 01/04/24 06/19/25 Unknown vit 2 tab PO DAILY 01/18/25 06/19/25 Unknown [id number] 500 mg-50 mg-25 mg-40 mg tablet (Bioflex) Active Medications Generic Name Dose Route Start Last Admin Trade Name Iman PRN Reason Stop Dose Admin Amiodarone HCl 200 mg 06/20/25 09:00 06/20/25 09:06 Amiodarone 200 Mg Tab PO 07/20/25 08:59 200 mg QAM DESTINY Administration Ascorbic Acid 1,000 mg 06/19/25 21:00 06/19/25 21:31 Ascorbic Acid 500 Mg Tab PO 07/19/25 20:59 1,000 mg HS DESTINY Administration Aspirin 81 mg 06/20/25 09:00 06/20/25 09:06 Aspirin 81 Mg Ectab PO 07/20/25 08:59 81 mg QAM DESTINY Administration Atorvastatin Calcium 80 mg 06/19/25 21:00 06/19/25 21:30 Atorvastatin 40 Mg Tab PO 07/19/25 20:59 80 mg HS DESTINY Administration Calcium Carbonate 1 tab 06/19/25 21:00 06/19/25 21:30 Calcium Carbonate 1250mg Tab PO 07/19/25 20:59 1 tab QPM DESTINY Administration Ezetimibe 10 mg 06/20/25 09:00 06/20/25 09:05 Ezetimibe 10 Mg Tab PO 07/20/25 08:59 10 mg QAM DESTINY Administration Hydromorphone HCl 0.5 mg 06/19/25 16:59 06/20/25 04:06 Hydromorphone Inj 0.5 Mg/0.5 Ml Syr IV 07/03/25 16:58 0.5 mg Q6H PRN Administration Severe Pain (Scale 7, 8, 9,10) Piperacillin Sod/Tazobactam Sod 4.5 gm in 100 mls @ 25 mls/hr 06/19/25 20:00 06/20/25 08:13 Zosyn IV 06/29/25 19:59 Infused Q8H DESTINY Infusion Protocol Levothyroxine Sodium 50 mcg 06/20/25 06:30 06/20/25 06:33 Levothyroxine Sodium 50 Mcg Tablet PO 07/20/25 06:29 50 mcg DAILYBB DESTINY Administration Lisinopril 2.5 mg 06/19/25 21:00 06/19/25 21:30 Lisinopril 2.5 Mg Tab PO 07/19/25 20:59 2.5 mg HS DESTINY Administration Metoprolol Tartrate 100 mg 06/20/25 09:00 06/20/25 09:05 Metoprolol Tartrate 100 Mg Tab PO 07/20/25 08:59 100 mg QAM DESTINY Administration Sertraline HCl 50 mg 06/20/25 09:00 06/20/25 09:05 Sertraline Hcl 50 Mg Tablet PO 07/20/25 08:59 50 mg QAM DESTINY Administration Spironolactone 25 mg 06/20/25 09:00 06/20/25 09:06 Spironolactone 25 Mg Tab PO 07/20/25 08:59 25 mg QAM DESTINY Administration Vitamin D 50 mcg 06/19/25 21:00 06/19/25 21:30 Cholecalciferol 25 Mcg (1000 Units) Tab PO 07/19/25 20:59 50 mcg QPM DESTINY Administration Past Medical History Medical History (Updated 06/20/25 @ 09:02 by Go Barker MD) Cardiomyopathy Left ventricular thrombus Atrial flutter Automatic implantable cardiac defibrillator in situ 04/2023, Medtronic, placed in [facility]>pacer/defibrillator Hx of cardiac arrest 03/2023, was on echmo, [facility] in [place], [place], intubated, and IMPELLA 4, and dialysis>in hospital for 6 weeks per cardio note-due to lt ventricular thrombus History of renal dialysis 03/2023, kidneys were beginning to fail following cardiac arrest, no longer on Chronic anemia Hypothyroidism Hx of malignant neoplasm of prostate 2018, XRT tx only Anxiety Depression Hypertension Hypercholesteremia Arthritis Heart attack 1992>led to CABG Exercise / Class Metabolic Activity III < 4 Walking/Shop/Light housework Past Family History Family History Father , 72yo Heart disease Rheumatic fever Mother , 74yo Heart disease Hypertension Anxiety Stroke Sister Breast cancer Multiple sclerosis Brother Myocardial infarction Brother Heart disease Hx of CABG Prostate cancer Brother Heart disease H/O heart artery stent Daughter No problems noted. Daughter No problems noted. Past Surgical History Surgical History Hx of colonoscopy PEG (percutaneous endoscopic gastrostomy) status History of esophagogastroduodenoscopy (EGD) History of cardiac cath ~2009, recheck following CABG procedure in 1992, [facility], x 3 stents History of tonsillectomy H/O heart artery stent ~2009, recheck following CABG procedure in 1992, [facility], x 3 stents S/P CABG x 2 1992, [facility]; f/u dr. romo, [facility] Social History Smoking Status: Former smoker Smoking cigarettes per day: 1/2 PPD x 20 years Do You Dip or Chew Tobacco: No Hx Alcohol Use: Yes Alcohol type: beer alcohol intake frequency: a few times a week Hx Substance Use: No substance use type: does not use Physical Exam Vital Signs Last Vital Signs Temp 36.9 C 06/20/25 09:47 Pulse 61 06/20/25 09:47 Resp 20 06/20/25 09:47 BP 110/56 L 06/20/25 09:47 Pulse Ox 94 06/20/25 09:47 O2 Del Method Room Air 06/20/25 09:47 Testing Laboratory Results 06/20/25 06:09 06/20/25 06:09 PT 10.9 Seconds (9.0-12.0) 06/19/25 11:37 INR 1.0 (0.9-1.1) 06/19/25 11:37 APTT 25 Seconds (21-31) 06/19/25 11:37 Urine Color Yellow 06/19/25 11:37 Urine Appearance Clear (Clear) 06/19/25 11:37 Urine pH 5.0 (4.5-7.5) 06/19/25 11:37 Ur Specific [place] 1.010 (1.000-1.030) 06/19/25 11:37 Urine Protein Negative (Negative) 06/19/25 11:37 Urine Glucose (UA) Negative (Negative) 06/19/25 11:37 Urine Ketones Negative (Negative) 06/19/25 11:37 Urine Nitrite Negative (Negative) 06/19/25 11:37 Ur Leukocyte Esterase Negative (Negative) 06/19/25 11:37 Electrocardiogram Date: 06/19/25 Findings: + NSR @ A-paced rhythm with prolonged AV conduction. Ant infarct ST and T wave abnormality Chest X-Ray Date: 06/19/25 XR chest 1V portable CLINICAL HISTORY: RUQ COMPARISON STUDY: 06/30/2023 FINDINGS: Stable CABG and pacemaker. Stable cardiomegaly without pulmonary vascular congestion. Stable elevation of the right hemidiaphragm. No consolidation or pleural effusion seen. No pneumothorax. IMPRESSION: No acute findings. Echocardiogram Date: 03/17/24 Focal apical infarct with scarring and mild aneurysmal expansion EF 44% LV diastolic function is mildly abnormal LA is severely enlarged mild MR Mild TR aortic root is mildly enlarged Other Testing Per Dr. Romo 05/22/25: Stress test reveals a large area of scar tissue but no suggestion of heart tissue that is at risk of decreased blood flow form progressive blockages in the heart arteries. Echo performed on reveals relatively stable findings with the area of scar tissue at the LV apex with associated aneurysm and scar tissue of that area of the heart. EJ 45-49% (stable/unchanged). Presence of a recurrent thrombus adherent to the apex of the heart can not be excluded. Believe this is chronic and calcified and would favor remaining off of coumadin and eliquis. Recent pacemaker/defibrillator interrogation revealed stable findings with no recent arrhythmia issues. "I would estimate that given your past history, you would be at moderate to high-risk for a per-procedure cardiac complication however I think that data that we have obtained thus far is reassuring and that surgery would not be of prohibitively high-risk.
[2025-06-20] MEDS: METOPROLOL TARTRATE 100 MG TAB PO SCH (09:05)
[2025-06-20] MEDS: SERTRALINE HCL 50 MG TABLET PO SCH (09:05)
[2025-06-20] MEDS: EZETIMIBE 10 MG TAB PO SCH (09:05)
[2025-06-20] MEDS: ASPIRIN 81 MG ECTAB PO SCH (09:06)
[2025-06-20] MEDS: AMIODARONE 200 MG TAB PO SCH (09:06)
[2025-06-20] MEDS: SPIRONOLACTONE 25 MG TAB PO SCH (09:06)
--- NOTE | 2025-06-20 09:06 | Surgery Progress Note ---
Date of Service June 20, 2025 Assessment & Plan (1) Acute cholecystitis: Plan: His CT images and results were personally viewed and interpreted by myself He does have a fair amount of pericholecystic stranding consistent with cholecystitis that has worsened since his CT scan in 2022 Will proceed with a laparoscopic cholecystectomy, possible open, possible intraoperative angiogram today Consent was obtained, risks discussed including bleeding, infection, bile leak, ductal injury He is at moderate to high risk for perioperative complications due to his coronary artery disease and complex cardiopulmonary history (2) Hx of two vessel coronary artery bypass graft: (3) CAD (coronary artery disease): Admission and Anticipated Discharge Date Admission Date: June 19, 2025 Subjective Patient seen and examined. Still with right upper quadrant pain. Afebrile. No acute events overnight. Review of Systems Constitutional: no fever and no chills Eyes: no blind spots and no corrective lenses Ear, Nose, Mouth, Throat: no ear pain and no hearing loss Respiratory: no cough and no dyspnea Cardiovascular: no chest pain and no dyspnea on exertion Gastrointestinal: + abdominal pain, + nausea, + vomiting, + constipation and + diarrhea/loose stools Genitourinary: no dysuria or no decreased urination Musculoskeletal: no back pain and no neck pain Integumentary: no acne, no sores, no urticaria and no skin swelling Neurologic: no gait abnormality and no tremor(s) Psychiatric: no behavioral changes and no depression Hematologic / Lymphatic: no easy bleeding and no easy bruising Physical Exam Constitutional: WD/WN, vitals as above Eyes: PERRL, conjunctivae normal, anicteric sclerae Respiratory: normal respiratory effort, lungs clear to auscultation Cardiovascular: RRR, no murmur, no edema Gastrointestinal (Abdomen): Inspection/Auscultation: abdomen normal to inspection; abdomen not distended Percussion/Palpation: + abdomen tender (Right upper quadrant), abdomen soft and + hernia (Reducible umbilical); no guarding Musculoskeletal: no cyanosis or clubbing, extremities motor strength 5/5 Skin: no rashes, warm and dry Neurologic: PERRL, EOMI, accommodation nl, no face palsy, no dysarthria Psychiatric: A+Ox3, euthymic affect Results & Data Vital Signs (Past 12 Hours) Vital Signs Temp Pulse Pulse Resp BP Pulse Ox O2 Del Method 06/20/25 07:27 37 C 60 21 108/65 92 Room Air 06/20/25 07:09 61 06/20/25 02:37 36.7 C 63 14 125/77 92 Room Air 06/19/25 21:58 67 PG Care Time/CCT Total # of Minutes Spent Total Time Spent with Patient: Total time spent is greater than 50% in coordination of care (as documented) at patient's floor/unit and/or counseling patient: Coding Level of Care Code 07738 SUB INP/OBS CARE 2/35MIN Diagnoses Acute cholecystitis K81.0 Hx of two vessel coronary artery bypass graft Z95.1 CAD (coronary artery disease) I25.10
[2025-06-20] MEDS ORDERED: LIDOCAINE 2% 2 ML VIAL/AMP(20MG/ML) INFIL ONE (09:29)
[2025-06-20] MEDS ORDERED: ROCURONIUM BROMIDE 10 MG/ML 5 ML VIAL IV ONE ×2 (09:29→12:15)
[2025-06-20] MEDS ORDERED: PROPOFOL IV EMULSION 10 MG/ML 20 ML VIAL IV ONE (09:29)
[2025-06-20] MEDS ORDERED: ONDANSETRON INJ 2 MG/ML 2 ML VIAL ONE (09:30)
[2025-06-20] MEDS ORDERED: PHENYLEPHRINE HCL 10 MG/ML VIAL ONE (09:30)
[2025-06-20] MEDS ORDERED: MIDAZOLAM HCL 1 MG/ML 2ML VIAL ONE (10:27)
[2025-06-20] MEDS ORDERED: PROMETHAZINE HCL 6.25 MG in SODIUM CHLORIDE 0.9% 50 ML IV PRN (11:10)
[2025-06-20] MEDS ORDERED: ATROPINE SULFATE 0.1 MG/ML 10ML SYR IV PRN (11:10)
[2025-06-20] MEDS ORDERED: HYDROmorphone INJ 1 MG/ML SYRINGE IV PRN (11:10)
[2025-06-20] MEDS ORDERED: ONDANSETRON INJ 2 MG/ML 2 ML VIAL IV PRN (11:10)
[2025-06-20] MEDS ORDERED: ACETAMINOPHEN 1000 MG/100 ML IV IV ONE (11:26)
[2025-06-20] MEDS ORDERED: KETAMINE HCL 10MG/ML SYR ONE (11:41)
[2025-06-20] MEDS: FLOSEAL HEMOSTATIC MATRIX 10ML TOP ONE (12:21)
[2025-06-20] MEDS ORDERED: SUGAMMADEX SODIUM 200 MG/2 ML VIAL IV ONE (12:23)
[2025-06-20] MEDS: BUPIVACAINE/EPINEPHRINE 0.5% MPF 1:200,000 30 ML VIAL ONE (12:24)
[2025-06-20] MEDS: ceFAZolin 3000MG 3,000 MG/72.5 ML BAG IV SCH (12:26)
[2025-06-20] MEDS ORDERED: HYDROmorphone INJ 2 MG/ML SYR/VIAL ONE (12:29)
--- NOTE | 2025-06-20 12:31 | Post Operative Brief Note ---
PG Immediate Post Op with CF Date of Surgery June 20, 2025 Pre & Post Diagnosis Operation Date: 06/20/25 08:50 Pre-Op Diagnosis: Acute cholecystitis Post-Op Diagnosis: Acute on chronic cholecystitis I identified the patient and participated in the time-out.: Yes Procedure Operation Date: 06/20/25 08:50 Actual Procedures p Laparoscopic Cholecystectomy(Not Applicable) - Leonardo Barraza DO Surgeon Leonardo Barraza DO Check Cashier Gabrielle Umana PA-C Estimated Blood Loss 100 Findings See Below Dense omental adhesions to the liver edge and gallbladder itself Gallbladder itself was dilated thickened and chronically inflamed consistent with acute on chronic cholecystitis Specimens Specimen Description: A: Gallbladder and contents Drains Leonardo Drain (19 fr inserted ) Anesthesia Type General Complications none Disposition Disposition: Recovery Room
--- NOTE | 2025-06-20 12:35 | Operative Report ---
PG Post Operative Report Pre & Post Diagnosis Operation Date: 06/20/25 08:50 Pre-Op Diagnosis: Acute cholecystitis Post-Op Diagnosis: Acute on chronic cholecystitis I identified the patient and participated in the time-out.: Yes Procedure Operation Date: 06/20/25 08:50 Actual Procedures p Laparoscopic Cholecystectomy(Not Applicable) - Leonardo Barraza DO Surgeon Leonardo Barraza DO Administrative Support Specialist Gabrielle Umana PA-C Estimated Blood Loss 100 Findings See Below Dense omental adhesions to the liver edge and gallbladder itself Gallbladder itself was dilated thickened and chronically inflamed consistent wit h acute on chronic cholecystitis Fluids see anesthesia record Specimens Gallbladder to pathology Drains 19 Nepalese Leonardo drain in the right upper quadrant/gallbladder fossa Anesthesia Type General Complications none Disposition Disposition: Recovery Room Indications 74-year-old male with acute cholecystitis Description of Procedure The patient was brought to the operating room and placed in the supine position with both arms extended. At this time he underwent general endotracheal anesthesia without any problems. He was given appropriate pre-operative antibiotics. His abdomen prepped and draped in the usual sterile fashion. A timeout was called, the procedure was verified as Laparoscopic cholecystectomy, possible open, possible intra-operative cholangiogram. Surgical, nursing and anesthesia teams agreed and the procedure was begun. After injection of 0.25% Marcaine with epinephrine, a supraumbilical vertical incision was made and carried down to the fascia using S-retractors. The abdominal wall was then elevated with towel clamps and abdomen entered using the Veress needle confirming position using the saline drop test. Pneumoperitoneum was established. 5mm trocar was placed. Laparoscope was introduced. No injury from entry into the abdomen was visualized after inspection of the abdomen. Three further ports were placed under direct visualization. One 11mm in the subxiphoid region and two 5mm in the RUQ. At this time the abdomen was inspected and the gallbladder identified. The omentum was densely adhered to the liver edge as well as the gallbladder itself. The superior portion of the liver was also stuck to the peritoneum more superiorly. I was able through combination of sharp and blunt dissection as well as electrocautery lysed the adhesions to the gallbladder. The gallbladder itself was dilated and chroni topher thickened consistent with acute on chronic cholecystitis. The gallbladder fundus was grasped and retracted cephalad. The gallbladder infundibulum was then grasped and retracted laterally. The cystic duct and cystic artery were then identified and skeletonized. The critical view of safety was obtained. The cystic duct and infundibulum was transected using a 45 mm martinez [employer] MARIAM stapler. The cystic artery was clipped twice proximally and once distally and then cut between with scissors. The gallbladder was then taken off of the liver bed using electrocautery and placed in an endocatch bag and removed from the subxiphoid port. The gallbladder fossa was cauterized until no active bleeding present. 10 mL of Floseal hemostatic agent was placed in the gallbladder fossa and nivia. A 19 Nepalese Leonardo drain was then introduced into the abdomen and brought out through the right lateral incision and placed in the gallbladder fossa. The liver bed was then inspected and no bile leak or bleeding was evident. The subxiphoid port was then closed using 0-Vicryl using the suture passer. The trocars were then removed under direct visualization and no bleeding was present. Abdomen was desufflated. The skin was then closed using 4-0 Monocryl in a subcuticular fashion. Surgical glue was applied. Needle and sponge counts were correct x 2. At this time the patient was awoken from anesthesia and extubated having remained stable throughout the entire case. The patient was then transported to PACU in stable condition. The physician paperhanger assistant was present scrubbed for the entire case. She was essential in positioning, prepping and draping the patient, retraction and exposure, driving the laparoscope, closure of the incisions and placement of the dressings. I attest to the content of the Intraoperative Record and any orders documented therein. Any exceptions are noted below.
[2025-06-20] MEDS ORDERED: HYDROmorphone INJ 0.5 MG/0.5 ML SYR IV PRN ×2 (13:23)
[2025-06-20] MEDS: LACTATED RINGER'S 1,000 ML IV SCH (13:25)
--- NOTE | 2025-06-20 14:44 | Anesthesiology Progress Note ---
Date of Service June 20, 2025 Anesthesia Post Procedure Vital Signs Vital Signs: Temp Pulse Pulse Pulse Resp BP BP 06/20/25 14:44 62 06/20/25 14:29 36.6 C 60 18 94/64 L 06/20/25 14:06 36.7 C 61 20 97/65 L 06/20/25 13:49 36.8 C 60 20 113/65 06/20/25 13:24 36.8 C 60 18 95/59 L 06/20/25 13:10 60 14 97/60 L 06/20/25 13:00 36.8 C 60 16 95/49 L 06/20/25 12:50 60 14 96/64 L 06/20/25 12:40 36.5 C 62 14 110/62 06/20/25 09:47 36.9 C 61 20 110/56 L 06/20/25 07:27 37 C 60 21 108/65 06/20/25 07:09 61 06/20/25 02:37 36.7 C 63 14 125/77 06/19/25 21:58 67 06/19/25 19:35 37.7 C H 67 18 120/69 06/19/25 17:35 37.0 C 69 24 137/76 06/19/25 17:08 37.0 C 69 24 137/76 06/19/25 17:02 69 06/19/25 16:34 06/19/25 16:30 130/66 06/19/25 16:09 130/81 06/19/25 15:15 67 18 118/48 L Pulse Ox O2 Del Method O2 Flow Rate 06/20/25 14:44 06/20/25 14:29 96 Nasal Cannula 1 06/20/25 14:06 94 Nasal Cannula 3 06/20/25 13:49 94 Nasal Cannula 3 06/20/25 13:24 94 Nasal Cannula 3 06/20/25 13:10 93 Nasal Cannula 4 06/20/25 13:00 92 Nasal Cannula 4 06/20/25 12:50 96 Oxymask 6 06/20/25 12:40 96 Oxymask 8 06/20/25 09:47 94 Room Air 06/20/25 07:27 92 Room Air 06/20/25 07:09 06/20/25 02:37 92 Room Air 06/19/25 21:58 06/19/25 19:35 93 Room Air 06/19/25 17:35 94 Room Air 06/19/25 17:08 94 Room Air 06/19/25 17:02 06/19/25 16:34 Room Air 06/19/25 16:30 06/19/25 16:09 92 06/19/25 15:15 94 Pain Intensity Right Upper Abdomen: Pain Intensity: 7 Abdomen: Pain Intensity: 3 Transfer of Care Handoff Completed per policy Notes Mental Status: alert / awake / arousable and participated in evaluation Patient Amnestic to Procedure: Yes Nausea / Vomiting: adequately controlled Pain: adequately controlled Airway Patency, RR, SpO2: stable & adequate BP & HR: stable & adequate Hydration State: stable & adequate Anesthetic Complications: no major complications apparent and Pt Satisfied with anesthetic care
--- NOTE | 2025-06-20 16:03 | Hospitalist Progress Note ---
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 #Acute on chronic cholecystitis S/p laparoscopic cholecystectomy this morning performed by Dr. Barraza Continue IV Zosyn; PRN pain control, antiemetics; clear liquid diet w/ slow advancement as tolerated per gen surg #ASCVD s/p CABG x2 #History of PCI to 1st diagonal in 08/2012 #History of ischemic cardiomyopathy #Chronically calcified LV apical mural thrombus Not on anticoagulation 2/2 history of life-threatening GIB #History of cardiac arrest 2/2 ventricular fibrillation s/p AICD placement in 2022 in [place], [place] #History of atrial flutter Pt recently underwent nuclear stress test/echo with primary virtual classroom manager, Dr. Romo -EF 45-49% (stable and unchanged), moderately sized apical and anterior septal wall motion abnormality with hypokinesis to akinesis, moderately sized apical scar, mild mitral vegetation and tricuspid regurgitation and laminar mural thrombus -Per Dr. Romo's OP note from April 2025, pt's mural thrombus is chronica lly calcified; currently off anticoagulation due to life-threatening GI bleeding Pacer/AICD most recently interrogated as an outpatient in April with no evidence of arrhythmias Pt planning to undergo elective hip surgery soon and per [facility] documentation, Dr. Romo note feels from cardiac standpoint he is okay to proceed Pt remains stable from a cardiac standpoint --> continue ASA, statin, BB, amiodarone, statin Hold lisinopril, Aldactone and torsemide for now given postop hypotension --> will resume when able; monitor daily weights/I&Os #Prediabetes Hgb A1c 5.7% on 05/24/24 Repeat A1c in AM #Anxiety/depression Continue Zoloft #Hypothyroidism Continue levothyroxine DVT Prophylaxis: SCDs/TEDs given history of life-threatening GIB PCP: Oli Puente MD Disposition: Uncertain d/c plans at this time Patient seen in collaboration with Dr. Petersen. Please see addendum. I spent a total of 42 minutes coordinating, documenting, and providing care for this patient excluding time spent in the performance of separately billed services or time spent by another provider/QHP. This included personally reviewing all current laboratories and imaging studies, medical reconciliation, outpatient chart review and discussion with specialists. This chart was completed in part utilizing Speech Voice Recognition Software. Grammatical errors, random word insertions, pronoun errors, and incomplete sentences are an occasional consequence of this system due to software limitati ons, ambient noise, and hardware issues. Any formal questions or concerns about the content, text, or information contained within the body of this dictation should be directly addressed to the provider for clarification. Admission and Anticipated Discharge Date Admission Date: June 19, 2025 Supervising Physician Co-Signing Physician Notes Patient seen and examined independently. Patient presented to the hospital with right upper quadrant abdominal pain. Underwent lap kalpana for acute on chronic cholecystitis. Patient reported improvement in RUQ pain after the surgery. Patient hemodynamically stable after the surgery. Continue with Zosyn, diet per general surgery. On Exam: Abdomen with well apposed lap kalpana incision sites, nontender on superficial palpation. Drain noted on right side. Rest of the examination as above. I have seen and examined the patient and have discussed the case with the provider above. I agree with the assessment and plan as stated. Time spent independently: 20 min Subjective Patient seen and examined postoperatively in N277-2. Pain well-controlled. Denies any SOB or chest pain; offers no complaints. Going to trial clear liquid diet. Review of Systems Review of Systems: At least ten systems reviewed and negative, except as noted in the subjective section. Physical Exam Physical Exam: General: Elderly M, NAD, laying down in bed, A&Ox3, conversing appropriately, at bedside HEENT: Normocephalic, atraumatic, external ear and nose normal, oropharynx slightly dry Respiratory: Normal respiratory effort, lungs CTAB, no accessory muscle use Cardiovascular: Regular rate/rhythm, normal peripheral pulses, no BLE edema Abdomen/GI: Active bowel sounds, soft, laparoscopic insertion sites C/D/I, surgical drain on R side Extremities/Musculoskeletal: No cyanosis or clubbing, extremities motor strength intact, moves all extremities Neurologic: No overt focal deficits, CN's II-XI not formally tested but appear grossly intact bilaterally Results & Data Results & Data Vital Signs (Past 12 Hours) Vital Signs Temp Pulse Pulse Pulse Resp BP Pulse Ox 06/20/25 15:47 36.3 C L 60 20 98/56 L 94 06/20/25 15:00 36.5 C 60 22 98/56 L 95 06/20/25 14:44 62 06/20/25 14:29 36.6 C 60 18 94/64 L 96 06/20/25 14:06 36.7 C 61 20 97/65 L 94 06/20/25 13:49 36.8 C 60 20 113/65 94 06/20/25 13:24 36.8 C 60 18 95/59 L 94 06/20/25 13:10 60 14 97/60 L 93 06/20/25 13:00 36.8 C 60 16 95/49 L 92 06/20/25 12:50 60 14 96/64 L 96 06/20/25 12:40 36.5 C 62 14 110/62 96 06/20/25 09:47 36.9 C 61 20 110/56 L 94 06/20/25 07:27 37 C 60 21 108/65 92 06/20/25 07:09 61 O2 Del Method O2 Flow Rate 06/20/25 15:47 Nasal Cannula 1 06/20/25 15:00 Nasal Cannula 1 06/20/25 14:44 06/20/25 14:29 Nasal Cannula 1 06/20/25 14:06 Nasal Cannula 3 06/20/25 13:49 Nasal Cannula 3 06/20/25 13:24 Nasal Cannula 3 06/20/25 13:10 Nasal Cannula 4 06/20/25 13:00 Nasal Cannula 4 06/20/25 12:50 Oxymask 6 06/20/25 12:40 Oxymask 8 06/20/25 09:47 Room Air 06/20/25 07:27 Room Air 06/20/25 07:09 Laboratory Results Short CBC 06/20/25 Range/Units 06:09 WBC 15.98 H (4.8-10.8) K/ul Hgb 14.1 (14.0-18.0) g/dl Hct 42.7 (42.0-52.0) % Plt Count 164 (130-400) K/uL BMP 06/20/25 06:09 Sodium 138 Potassium 3.9 Chloride 101 Carbon Dioxide 28 BUN 27 H Creatinine 1.39 Glucose 121 H Calcium 9.0 Liver Function 06/20/25 Range/Units 06:09 Total Bilirubin 1.6 H (0.2-1.0) mg/dl AST 43 H (13-39) U/L ALT 58 H (7-52) U/L Alkaline Phosphatase 76 (34-104) U/L Albumin 3.9 (3.4-5.0) gm/dl
[2025-06-20] MEDS: SODIUM CHLORIDE 0.9% 1,000 ML IV SCH (17:11)
[2025-06-20 20:48] LABS: Hematocrit (blood only) 39.7 % (42.0-52.0); Hemoglobin 13.2 g/dl (14.0-18.0); Mean Corpuscular Hemoglobin 31.7 pg (25.0-34.0); Mean Corpuscular Volume 95.4 fL (80.0-100.0); Platelet Count 138 K/uL (130-400); RDW Standard Deviation 52.3 fL (36.4-46.3); Red Blood Count 4.16 M/uL (4.70-6.10); White Blood Count 15.71 K/ul (4.8-10.8)
[2025-06-20] MEDS: MELATONIN 3 MG TAB PO PRN (21:17)
[2025-06-21] MEDS: ACETAMINOPHEN 325 MG TAB PO PRN (05:11)
[2025-06-21 07:17] LABS: Hematocrit (blood only) 37.8 % (42.0-52.0); Hemoglobin 12.1 g/dl (14.0-18.0); Immature Granulocytes # (auto) 0.11 K/uL (0.01-0.20); Immature Granulocytes % (auto) 0.8 %; Mean Corpuscular Hemoglobin 30.4 pg (25.0-34.0); Mean Corpuscular Volume 95.0 fL (80.0-100.0); Platelet Count 127 K/uL (130-400); RDW Standard Deviation 51.8 fL (36.4-46.3); Red Blood Count 3.98 M/uL (4.70-6.10); White Blood Count 13.78 K/ul (4.8-10.8)
[2025-06-21 07:38] LABS: Alanine Aminotransferase 61.0 U/L (7-52); Albumin Globulin Ratio 1.4 (0.9-2); Alkaline Phosphatase 73.0 U/L (34-104); Anion Gap 7.0 (3-11); Bilirubin,Total 1.3 mg/dl (0.2-1.0); Blood Urea Nitrogen 33.0 mg/dl (6-23); Calcium 8.4 mg/dl (8.6-10.3); Carbon Dioxide 27.0 mmol/L (21-32); Chloride 102.0 mmol/L (98-107); Creatinine Clr Calc Pharmacy 64.0 ml/min; Globulin 2.4 gm/dl (2.5-4.0); Glucose 118.0 mg/dl (70-99(Fasting)); Magnesium 2.1 mg/dl (1.7-2.4); Potassium 3.7 mmol/L (3.5-5.1); Sodium 136.0 mmol/L (136-145); Total Protein 5.7 gm/dl (6.0-8.3)
--- NOTE | 2025-06-21 08:48 | Surgery Progress Note ---
Date of Service June 21, 2025 Assessment & Plan (1) Acute cholecystitis: Plan: Patient is POD #1 s/p laparoscopic cholecystectomy with Dr. Barraza -Tolerating clears without any reported issues. Patient would like to have something more substantial for lunch, will advance to a regular diet -Afebrile and WBC starting to downtrend today to 13.7 from 15.7 yesterday. Continue IV abx coverage and continue to monitor WBC and temps -BRIANNA drain with 150cc output recorded, keep in place Admission and Anticipated Discharge Date Admission Date: June 19, 2025 Supervising Physician Co-Signing Physician Notes Postoperative day 1 laparoscopic cholecystectomy Can advance his diet as tolerated Leave drain in place, he will go home with this and follow-up late next week He does not need any antibiotics upon discharge I think tentative plan will be discharge home tomorrow pending his clinical course Subjective Patient seen and evaluated this morning, states he is feeling well. Eating clear liquids for breakfast, tolerating without any issues. Denies any N/V overnight WBC starting to downtrend to 13.7 today. On IV abx Tbili 1.3 today BRIANNA drain in place, 150cc output recorded VSS and afebrile Physical Exam Constitutional: WD/WN, vitals as above Respiratory: normal respiratory effort, lungs clear to auscultation Cardiovascular: Rate/Rhythm: regular rate Gastrointestinal (Abdomen): Abdomen soft, +appropriate TTP over surgical incisions. Incisions are c/d/i with Dermabond in place. BRIANNA drain in place to RUQ Skin: no rashes, warm and dry Psychiatric: A+Ox3, euthymic affect Results & Data Vital Signs (Past 12 Hours) Vital Signs Temp Pulse Pulse Resp BP Pulse Ox O2 Del Method 06/21/25 08:02 64 06/21/25 07:43 37.0 C 58 L 18 118/69 91 Room Air 06/21/25 07:16 67 06/21/25 03:35 36.9 C 69 16 123/70 95 Room Air 06/20/25 22:00 37.4 C 65 16 102/57 L 94 Room Air 06/20/25 21:40 64 PG Care Time/CCT Total # of Minutes Spent Total Time Spent with Patient: Total time spent is greater than 50% in coordination of care (as documented) at patient's floor/unit and/or counseling patient: C[place] [address] Post Operative Follow-Up Patient Type Established Medical Decision Making Straight Forward Diagnoses Acute cholecystitis K81.0
[2025-06-21 08:53] LABS: Hemoglobin A1C 5.9 % (4.5-5.6)
--- NOTE | 2025-06-21 11:02 | Hospitalist Progress Note ---
Date of Service June 21, 2025 Assessment & Plan (1) Acute cholecystitis: (2) Postoperative hypotension: (3) Anemia: Plan Patient is a 74y/o M with complex PMHx including HTN, HLD, ASCVD s/p CABG x 2 including vein graft to the ramus intermedius into the distal RCA territory, h istory of PCI to Diag1 and left main in August 2012 with noted chronic 99% MidLAD occlusion after takeout of the first diag, history of left ventricular apical mural thrombus s/p warfarin tx with recurrence as of TTE done May 2023 [now likely calcified per most recent TTE in April 2025], history of ischemic cardiomyopathy, chronic systolic HF, history of ventricular fibrillation cardiac arrest in March 2023 s/p AICD, history of significant GI bleeding secondary to rectal ulcers s/p epinephrine injection and ablation, history of atrial flutter, history of left ventricular apical aneurysm, history of prostate cancer, MGUS, HLD, prediabetes and hypothyroidism who presented the ED on 06/19/25 with c/o RUQ abdominal pain and was found to have acute cholecystitis. #Acute on chronic cholecystitis POD #1 s/p laparoscopic cholecystectomy performed by Dr. Barraza on 06/20/25 Continue IV Zosyn for now -WBC slowly downtrending (likely reactive response ISO pain contributing) -Per gen surg, will not need ABX upon d/c Continue PRN pain control, antiemetics; transition to regular diet at lunch and see how he tolerates Bowel regimen onboard; pt passing gas but no BM yet postoperatively LFTs still slightly elevated however appear grossly stable compared to prior, continue to monitor Has surgical drain in place --> will be going home w/ this and then have it removed at gen surg f/u appt next wk #Postoperative hypotension Holding lisinopril, Aldactone and torsemide for now given postop hypotension --> BP slowly improving, will resume meds when able #Postoperative anemia --> suspect 2/2 expected surgical blood loss [EBL = 100mL] Preop Hgb 14.1 --> downtrended to 12.1 today Likely dilutional component contributing as well given IVF administered for postop hypotension Continue to monitor; no indication to transfuse at this time #ASCVD s/p CABG x2 #History of PCI to 1st diagonal in 08/2012 #History of ischemic cardiomyopathy #Chronically calcified LV apical mural thrombus Not on anticoagulation 2/2 history of life-threatening GIB #History of cardiac arrest 2/2 ventricular fibrillation s/p AICD placement in 2022 in [place], [place] #History of atrial flutter Pt recently underwent nuclear stress test/echo with primary svp digital ad sales, Dr. Romo -EF 45-49% (stable and unchanged), moderately sized apical and anterior septal wall motion abnormality with hypokinesis to akinesis, moderately sized apical scar, mild mitral vegetation and tricuspid regurgitation and laminar mural thrombus -Per Dr. Romo's OP note from April 2025, pt's mural thrombus is chronically calcified; currently off anticoagulation due to life-threatening GI bleeding Pacer/AICD most recently interrogated as an outpatient in April with no evidence of arrhythmias Pt planning to undergo elective hip surgery soon and per [facility] documentation, Dr. Romo note feels from cardiac standpoint he is okay to proceed Pt remains stable from a cardiac standpoint --> continue ASA, statin, BB, a miodarone, statin; monitor daily weights/I&Os #Prediabetes Hgb A1c 5.7% on 05/24/24 Updated Hgb A1c 5.9%; lifestyle changes encouraged, PCP f/u advised #Anxiety/depression Continue Zoloft #Hypothyroidism Continue levothyroxine DVT Prophylaxis: SCDs/TEDs given history of life-threatening GIB PCP: Oli Puente MD Disposition: Possible d/c home tomorrow depending on clinical course Patient seen in collaboration with Dr. Petersen. Please see addendum. I spent a total of 38 minutes coordinating, documenting, and providing care for this patient excluding time spent in the performance of separately billed services or time spent by another provider/QHP. This included personally reviewing all current laboratories and imaging studies, medical reconciliation, outpatient chart review and discussion with specialists. This chart was completed in part utilizing Speech Voice Recognition Software. Grammatical errors, random word insertions, pronoun errors, and incomplete sentences are an occasional consequence of this system due to software limitations, ambient noise, and hardware issues. Any formal questions or concerns about the content, text, or information contained within the body of this dictation should be directly addressed to the provider for clarification. Admission and Anticipated Discharge Date Admission Date: June 19, 2025 Supervising Physician Co-Signing Physician Notes Patient seen and examined independently. Patient presented to the hospital with right upper quadrant abdominal pain. Underwent lap kalpana for acute on chronic cholecystitis 06/20. Patient reported improvement in RUQ pain after the surgery. Patient hemodynamically stable after the surgery. Continue with Zosyn, diet per general surgery. On Exam: Abdomen with well apposed lap kalpana incision sites, nontender on superficial palpation. Drain noted on right side. Rest of the examination as above. I have seen and examined the patient and have discussed the case with the provider above. I agree with the assessment and plan as stated. Time spent independently: 15 min Subjective Patient seen and examined in room N277-2. Tolerating clear liquid diet; would like to advance his diet. Denies any N/V. Pain remains well-controlled postoperatively. Review of Systems Review of Systems: At least ten systems reviewed and negative, except as noted in the subjective section. Physical Exam Physical Exam: General: Elderly M, NAD, sitting up in bed, A&Ox3, conversing appropriately, at bedside HEENT: Normocephalic, atraumatic, external ear and nose normal, oropharynx moist Respiratory: Normal respiratory effort, lungs CTAB, no accessory muscle use Cardiovascular: Regular rate/rhythm, normal peripheral pulses, no BLE edema Abdomen/GI: Active bowel sounds, soft, laparoscopic insertion sites C/D/I, surgical drain on R side Extremities/Musculoskeletal: No cyanosis or clubbing, extremities motor strength intact, moves all extremities Neurologic: No overt focal deficits, CN's II-XI not formally tested but appear grossly intact bilaterally Results & Data Results & Data Vital Signs (Past 12 Hours) Vital Signs Temp Pulse Pulse Resp BP Pulse Ox O2 Del Method 06/21/25 08:02 64 06/21/25 07:43 37.0 C 58 L 18 118/69 91 Room Air 06/21/25 07:16 67 06/21/25 03:35 36.9 C 69 16 123/70 95 Room Air Laboratory Results Short CBC 06/20/25 06/21/25 Range/Units 20:21 06:37 WBC 15.71 H 13.78 H (4.8-10.8) K/ul Hgb 13.2 L 12.1 L (14.0-18.0) g/dl Hct 39.7 L 37.8 L (42.0-52.0) % Plt Count 138 127 L (130-400) K/uL BMP 06/21/25 06:37 Sodium 136 Potassium 3.7 Chloride 102 Carbon Dioxide 27 BUN 33 H Creatinine 1.37 Glucose 118 H Calcium 8.4 L Liver Function 06/21/25 Range/Units 06:37 Total Bilirubin 1.3 H (0.2-1.0) mg/dl AST 45 H (13-39) U/L ALT 61 H (7-52) U/L Alkaline Phosphatase 73 (34-104) U/L Albumin 3.3 L (3.4-5.0) gm/dl (3) Anemia Anemia type: unspecified type Qualified Code(s): D64.9 - Anemia, unspecified
[2025-06-21] MEDS: DOCUSATE SODIUM 100 MG CAP PO SCH (11:32)
[2025-06-21] MEDS: POLYETHYLENE (MIRALAX) 17 GM PACK PO SCH (11:32)
--- NOTE | 2025-06-22 04:46 | Surgery Progress Note ---
Date of Service June 22, 2025 Assessment & Plan (1) Acute cholecystitis: Plan: Patient has been admitted on the hospitalist service. He is status post laparoscopic cholecystectomy on 06/20/2025 (postop day #2) Continue analgesics as needed Continue diet as tolerated Check a.m. labs and available Encourage ambulation BRIANNA drain to remain in place at time of discharge and will be discharged in office as an outpatient as above. lab improving. ok for d/c when ok with primary service. Dr. Barraza would like the drain kept in place and he will remove in the office. Admission and Anticipated Discharge Date Admission Date: June 19, 2025 Subjective Patient is resting comfortably in bed he denies any nausea or vomiting. He is urinating without difficulty. He is tolerating solid food without nausea, vomiting, or exacerbation of abdominal pain. He is passing flatus but did not have a bowel movement since surgery. Physical Exam Gastrointestinal (Abdomen): Abdomen is soft with minimal distention. 3 laparoscopic incisions are clean, dry, and intact. BRIANNA drain is in place draining serosanguineous fluid. Patient has expected tenderness near surgical incisions Results & Data Vital Signs (Past 12 Hours) Vital Signs Temp Pulse Pulse Resp BP Pulse Ox O2 Del Method 06/22/25 02:49 36.7 C 66 18 118/71 92 Room Air 06/21/25 22:32 37.0 C 61 18 115/70 92 Room Air 06/21/25 22:22 63 06/21/25 19:22 37.0 C 65 18 118/71 91 Room Air PG Care Time/CCT Total # of Minutes Spent Total Time Spent with Patient: Total time spent is greater than 50% in coordination of care (as documented) at patient's floor/unit and/or counseling patient: Coding Level of Care Code None Diagnoses Acute cholecystitis K81.0
--- NOTE | 2025-06-22 06:13 | Electrocardiogram Report ---
Test Reason : Blood Pressure : */* mmHG Vent. Rate : 74 BPM Atrial Rate : 74 BPM P-R Int : 278 ms QRS Dur : 120 ms QT Int : 388 ms P-R-T Axes : * 90 181 degrees QTcB Int : 430 ms Atrial-paced rhythm with prolonged AV conduction Rightward axis Anterior infarct (cited on or before 25-Jun-2023) Abnormal ECG When compared with ECG of 25-Jun-2023 11:07, Questionable change in initial forces of Anterior leads Confirmed by Suresh Garcia ([id number]) on 06/22/2025 6:13:40 AM Referred By: REFERRED SELF Confirmed By: Suresh Garcia
[2025-06-22 06:30] LABS: Hematocrit (blood only) 34.1 % (42.0-52.0); Hemoglobin 11.3 g/dl (14.0-18.0); Immature Granulocytes # (auto) 0.06 K/uL (0.01-0.20); Immature Granulocytes % (auto) 0.5 %; Mean Corpuscular Hemoglobin 30.7 pg (25.0-34.0); Mean Corpuscular Volume 92.7 fL (80.0-100.0); Platelet Count 122 K/uL (130-400); RDW Standard Deviation 49.4 fL (36.4-46.3); Red Blood Count 3.68 M/uL (4.70-6.10); White Blood Count 11.00 K/ul (4.8-10.8)
[2025-06-22 06:57] LABS: Alanine Aminotransferase 45.0 U/L (7-52); Albumin Globulin Ratio 1.2 (0.9-2); Alkaline Phosphatase 75.0 U/L (34-104); Anion Gap 6.0 (3-11); Bilirubin,Total 0.7 mg/dl (0.2-1.0); Blood Urea Nitrogen 24.0 mg/dl (6-23); Calcium 8.5 mg/dl (8.6-10.3); Carbon Dioxide 27.0 mmol/L (21-32); Chloride 103.0 mmol/L (98-107); Creatinine Clr Calc Pharmacy 72.9 ml/min; Globulin 2.5 gm/dl (2.5-4.0); Glucose 96.0 mg/dl (70-99(Fasting)); Magnesium 2.3 mg/dl (1.7-2.4); Potassium 3.6 mmol/L (3.5-5.1); Sodium 136.0 mmol/L (136-145); Total Protein 5.6 gm/dl (6.0-8.3)
[2025-06-22 07:40] VITALS: PULSE 60
--- NOTE | 2025-06-22 08:44 | Discharge Summary ---
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 The patient is postop day #2 s/p lap kalpana by Dr. Barraza on 06/20/2025. The patient remained on IV Zosyn while inpatient and per surgery no indication for further antibiotics on DC. The patient had postop hypotension and anemia. Subsequently, his blood pressure medications and diuretics were placed on hold. This can slowly be resumed outpatient. His hemoglobin is also improving, 11.3 on DC. The patient recently had a cardiac workup outpatient with Dr. Amaya and remains stable from a cardiac standpoint. His beta-jessi and amiodarone will be continued on discharge. His pain is controlled. His white count is slowly improving, 11 today. His labs/vitals are stable. He is stable for discharge home today. He is cleared by surgery. He will be discharged with his BRIANNA drain in place and he will follow-up with surgery within 6 days of discharge for removal. The patient is also tolerating a diet. He will need outpatient follow-up with his PCP within a week of discharge. He will need outpatient follow-up with cardiology within 2 weeks of discharge. He will need outpatient follow-up with surgery within 1 week of discharge. Principal Dx & Hospital Course #1 = Principal Diagnosis (1) Acute cholecystitis: (2) Postoperative hypotension: (3) Anemia: Plan Patient is a 74y/o M with complex PMHx including HTN, HLD, ASCVD s/p CABG x 2 including vein graft to the ramus intermedius into the distal RCA territory, history of PCI to Diag1 and left main in August 2012 with noted chronic 99% MidLAD occlusion after takeout of the first diag, history of left ventricular apical mural thrombus s/p warfarin tx with recurrence as of TTE done May 2023 [now likely calcified per most recent TTE in April 2025], history of ischemic cardiomyopathy, chronic systolic HF, history of ventricular fibrillation cardiac arrest in March 2023 s/p AICD, history of significant GI bleeding secondary to rectal ulcers s/p epinephrine injection and ablation, history of atrial flutter, history of left ventricular apical aneurysm, history of prostate cancer, MGUS, HLD, prediabetes and hypothyroidism who presented the ED on 06/19/25 with c/o RUQ abdominal pain and was found to have acute cholecystitis. #Acute on chronic cholecystitis POD #1 s/p laparoscopic cholecystectomy performed by Dr. Barraza on 06/20/25 Continue IV Zosyn for now -WBC slowly downtrending (likely reactive response ISO pain contributing) -Per gen surg, will not need ABX upon d/c Continue PRN pain control, antiemetics; transition to regular diet at lunch and see how he tolerates Bowel regimen onboard; pt passing gas but no BM yet postoperatively LFTs still slightly elevated however appear grossly stable compared to prior, continue to monitor Has surgical drain in place --> will be going home w/ this and then have it removed at gen surg f/u appt next wk #Postoperative hypotension Holding lisinopril, Aldactone and torsemide for now given postop hypotension --> BP slowly improving, will resume meds when able #Postoperative anemia --> suspect 2/2 expected surgical blood loss [EBL = 100mL] Preop Hgb 14.1 --> downtrended to 12.1 today Likely dilutional component contributing as well given IVF administered for postop hypotension Continue to monitor; no indication to transfuse at this time #ASCVD s/p CABG x2 #History of PCI to 1st diagonal in 08/2012 #History of ischemic cardiomyopathy #Chronically calcified LV apical mural thrombus Not on anticoagulation 2/2 history of life-threatening GIB #History of cardiac arrest 2/2 ventricular fibrillation s/p AICD placement in 2022 in [place], [place] #History of atrial flutter Pt recently underwent nuclear stress test/echo with primary collection systems foreman, Dr. Romo -EF 45-49% (stable and unchanged), moderately sized apical and anterior septal wall motion abnormality with hypokinesis to akinesis, moderately sized apical scar, mild mitral vegetation and tricuspid regurgitation and laminar mural thrombus -Per Dr. Romo's OP note from April 2025, pt's mural thrombus is chronically calcified; currently off anticoagulation due to life-threatening GI bleeding Pacer/AICD most recently interrogated as an outpatient in April with no evidence of arrhythmias Pt planning to undergo elective hip surgery soon and per [facility] documentation, Dr. Romo note feels from cardiac standpoint he is okay to proceed Pt remains stable from a cardiac standpoint --> continue ASA, statin, BB, amiodarone, statin; monitor daily weights/I&Os #Prediabetes Hgb A1c 5.7% on 05/24/24 Updated Hgb A1c 5.9%; lifestyle changes encouraged, PCP f/u advised #Anxiety/depression Continue Zoloft #Hypothyroidism Continue levothyroxine DVT Prophylaxis: SCDs/TEDs given history of life-threatening GIB PCP: Oli Puente MD Disposition: Possible d/c home tomorrow depending on clinical course Patient seen in collaboration with Dr. Petersen. Please see addendum. I spent a total of 38 minutes coordinating, documenting, and providing care for this patient excluding time spent in the performance of separately billed services or time spent by another provider/QHP. This included personally reviewing all current laboratories and imaging studies, medical reconciliation, outpatient chart review and discussion with specialists. This chart was completed in part utilizing Speech Voice Recognition Software. Grammatical errors, random word insertions, pronoun errors, and incomplete sentences are an occasional consequence of this system due to software limitations, ambient noise, and hardware issues. Any formal questions or concerns about the content, text, or information contained within the body of this dictation should be directly addressed to the provider for clarification. Notes For Next Care Provider Medication Changes From Visit Blood pressure medications placed on hold due to hypotension postop. Admission HPI Per Admitting Provider "Fidel Finley Is a 74-year-old male who has a complex past medical history including CAD with CABG x 2 including vein graft to the ramus intermedius into the distal RCA territory, status post PCI intervention in August 2012, ischemic cardiomyopathy and chronic systolic CHF, left ventricular apical mural thrombus previously on warfarin since resolved with reoccurrence per echo since 2022, now likely calcified per most recent echo in April 2025, history of ventricular fibrillation cardiac arrest status post AICD, history of significant GI bleeding secondary to rectal ulcers status post epinephrine injection with ablation and heat probe, history of atrial flutter, history of left ventricular apical aneurysm, history of prostate cancer, MG US, HTN, HLD, prediabetes and hypothyroidism who presents to ED secondary to right upper quadrant abdominal pain x 1 day. Pt has been having intermittent abdominal discomfort. His sx started again last Night after eating supper and significantly got worse again this morning after drinking coffee. Pain is in the right upper quadrant with radiation around his right mid back with associated nausea and sweats. He has been unable to eat or drink anything. He denies mare fever or chills, chest pain, shortness of breath, cough, URI symptoms, vomiting, hematemesis, change in bowel or urinary habits. He typically moves his bowels every other day. He denies any melena or hematochezia. He has been compliant with his medications. In ED patient was hemodynamically stable. Notable lab abnormalities are leukocytosis at 18,000, total bilirubin1.31.3 and right upper quadrant ultrasound revealing distended gallbladder with cholelithiasis and layering sludge. No definitive evidence of acute cholecystitis or biliary ductal dilatation. Discharge Exam Constitutional WD/WN, vitals as above Eyes PERRL, conjunctivae normal, anicteric sclerae ENMT external ear and nose normal, oropharynx normal Neck trachea midline, no thyromegaly Respiratory normal respiratory effort, lungs clear to auscultation Cardiovascular RRR, no murmur, no edema Gastrointestinal (Abdomen) normal bowel sounds, soft, nontender, no hepatosplenomegaly (Right upper quadrant tenderness over incision, BRIANNA drain in place) Musculoskeletal no cyanosis or clubbing, extremities motor strength 5/5 Skin no rashes, warm and dry Neurologic PERRL, EOMI, accommodation nl, no face palsy, no dysarthria Psychiatric A+Ox3, euthymic affect Lymphatic no cervical or axillary lymphadenopathy Updated Medication List Medication Instructions Recorded Confirmed Type aspirin 81 mg tablet,delayed 81 mg PO QAM 05/07/20 06/19/25 History release (Adult Low Dose Aspirin) ezetimibe 10 mg tablet 10 mg PO QAM 05/07/20 06/19/25 History multivitamin 1 tab PO QPM 05/07/20 06/19/25 History omega-3 fatty acids 1,000 mg 1,000 mg PO QPM 05/07/20 06/19/25 History capsule cholecalciferol (vitamin D3) 50 50 mcg PO QPM 12/31/20 06/19/25 History mcg (2,000 unit) capsule amiodarone 200 mg tablet 200 mg PO QAM 06/25/23 06/19/25 History atorvastatin 80 mg tablet 80 mg PO HS 06/25/23 06/19/25 History sennosides 8.6 mg capsule (senna) 8.6 mg PO BID PRN Constipation 06/25/23 06/19/25 History sertraline 50 mg tablet 50 mg PO QAM 06/25/23 06/19/25 History spironolactone 25 mg tablet 25 mg PO QAM 06/25/23 06/19/25 History torsemide 20 mg tablet 20 mg PO QAM 06/25/23 06/19/25 History ascorbic acid (vitamin C) 1,000 mg 1 g PO HS 08/15/23 06/19/25 History tablet (Vitamin C) calcium carbonate (Calcium 600) 600 mg PO QPM 08/15/23 06/19/25 History levothyroxine 50 mcg tablet 50 mcg PO QAM 08/15/23 06/19/25 History metoprolol tartrate 100 mg tablet 100 mg PO QAM 08/15/23 06/19/25 History acetaminophen 650 mg 650 mg PO Q6H PRN Pain 01/04/24 06/19/25 History tablet,extended release docosahexaenoic acid (dha)-epa 120 1 cap PO DAILY 01/04/24 06/19/25 History mg-180 mg capsule (Fish Oil) lisinopril 2.5 mg tablet 2.5 mg PO HS 01/04/24 06/19/25 History vit 2 tab PO DAILY 01/18/25 06/19/25 History [id number] 500 mg-50 mg-25 mg-40 mg tablet (Bioflex) Hospital Stay Data Consultations 06/19/25 13:34 Consult General Surgery Stat 06/19/25 14:00 ED Decision to Admit Stat Procedures Performed Operation Date: 06/20/25 08:50 Actual Procedures p Laparoscopic Cholecystectomy(Not Applicable) - Leonardo Barraza, Diagnostic Imagining Performed 06/19/25 11:39 US gallbladder Stat 06/19/25 15:08 CT abd pelvis IV con only Stat Pending Results Patient Have Any Pending Studies at Discharge: Yes Discharge Instructions Given to Patient (Per Discharging Provider) SPECIAL CARE INSTRUCTIONS: * You have skin glue over your incisions called dermabond. you may shower with this on. It will tend to dissolve and fall off within a couple weeks. Do not pick at the skin glue * Please care for your surgical drain as you have been instructed prior to discharge from the hospital. Empty drain 2-3x/daily and record output. Outside of emptying the drain please keep it to bulb suction at all times. Change dressing daily over drain site daily and as needed with dry gauze/tape. Follow up in the office next week for drain removal. * You may shower 06/21 . NO soaking in bath tubs, hot tubs, pools or beaches for 2 weeks * No lifting greater than 10lbs. No strenuous exercise until cleared by surgeon. Light walking is accepted. * No driving while taking narcotic pain medication; wait at least 3 days * No drinking alcohol while taking narcotic pain medication * May use Ibuprofen/Tylenol over the counter for pain as tolerated. Do not exceed 3grams of Tylenol per 24 hours * Expect some swelling and bruising. * Diet- you may resume your regular diet Call your doctor if: * Temperature above 101 degrees, nausea/vomiting, fever/chills * Pain not relieved by pain medicine ordered * There is increased drainage or redness from any incision * You have any unanswered questions or concerns [phone]. FOLLOW UP VISIT: If not already scheduled, please call the office for a follow-up visit. Office Please follow-up with the PCP within 1 week of discharge. Please follow-up with cardiology within 2 weeks of discharge. Your blood pressure medications will remain on hold on DC. Please monitor your blood pressure on daily basis and keep a log. If your blood pressure begins to increase, reach out to cardiology for further instructions You may continue metoprolol. Please continue holding lisinopril, Aldactone, torsemide Take your blood pressure every morning, if above 140/90, can reintroduce torsemide first and touch base with collection systems foreman Total Time Total Time Spent Total Time Spent (In Minutes): 60 Total Time Includes: Examination of the Patient, Discharge Planning, Medication Reconciliation, Communication With Other Providers and Other Supervising Physician Co-Signing Physician Notes Patient seen and examined independently. Patient presented to the hospital with right upper quadrant abdominal pain. Underwent lap kalpana for acute on chronic cholecystitis 06/20. Patient reported improvement in RUQ pain after the surgery. Patient hemodynamically stable after the surgery. has moved bowel. Pt tolerating diet, no atb per gen sx recs. On Exam: Abdomen with well apposed lap kalpana incision sites, nontender on superficial palpation. Drain noted on right side. Rest of the examination as above. I have seen and examined the patient and have discussed the case with the provider above. I agree with the assessment and plan as stated. Time spent independently: 20 min
[2025-06-22 11:26] VITALS: BP 124/77; RESP 18; TEMP 97.7; O2SAT 95
== END 2025-06-22 13:56 | disposition home or self-care (01) | DRG 418 ==
LOC: ED 11:26 → SUATTDRO 14:13 → 2N 14:13